=== PATIENT | female | born 1955 | race Caucasian/White ===

== ENCOUNTER → 2017-06-17 | Outpatient (CLI) | payer OTHER ==
[~2017-06-17] MED LIST: AMLO2.5T PO; ASCA500 PO; ASPCH81; ATOR-24 PO; BNC/20125 PO; CALCTAB5 PO; CHOL100010 PO; COQ10 PO; EZET10TA63 PO; GLC500 PO; GLCSUNK PO; IBUP600T44 PO; LSX20 PO; MULT-506 PO; NVLGI SQ; SERT25TA PO; TIZA4CAP PO
== END | disposition home or self-care (01) ==
LOC: C.LAB1850 09:52
PROVIDERS: ATTEND Internal Medicine Rheumatology
DX: M35.3 Polymyalgia rheumatica (principal); R70.0 Elevated erythrocyte sedimentation rate

== ENCOUNTER 2018-03-13 16:34 | Inpatient (IN) | payer OTHER ==
[~2018-03-13] VITALS: Ht 160 cm; Wt 117.1 kg
[~2018-03-13 16:34] MED LIST changes: -AMLO2.5T PO; -ASCA500 PO; -ASPCH81; +ASPI81TA28 PO; +BENICAR/HCTZ PO; -BNC/20125 PO; +CALC500C70 PO; -CALCTAB5 PO; -CHOL100010 PO; +CHOL2000 PO; +DULO60CA44 PO; +FERROUS SULFATE PO; -GLC500 PO; -GLCSUNK PO; -IBUP600T44 PO; +INSDGI SC; +LOVAZA PO; -LSX20 PO; +MAGN400T6 PO; +NVLG SC; -NVLGI SQ; +PRD/1 PO; +PRLSR20 PO; +RXC5 PO; -SERT25TA PO; +TOCI20IN INJ; +TRAM-10 PO; +TRIA1SPR4 INTNAS; +VERA240T20 PO
[2018-03-13 20:05] VITALS: BP 142/61; PULSE 80; TEMP 37.5; O2SAT 97
[2018-03-13] MEDS ORDERED: ACETAMINOPHEN 325 MG TAB PO PRN ×2 (20:45→22:00)
[2018-03-13] MEDS ORDERED: ONDANSETRON INJ 2 MG/ML 2 ML VIAL IV PRN ×2 (20:45→22:00)
[2018-03-13 21:41] VITALS: BP 142/61; PULSE 80; TEMP 37.5; O2SAT 97; BMI 43.5
[2018-03-13 21:56] VITALS: O2SAT 92
[2018-03-13 21:57] VITALS: O2SAT 97
[2018-03-13] MEDS ORDERED: POLYETHYLENE (MIRALAX) 17 GM PACK PO PRN (22:00)
[2018-03-13] MEDS ORDERED: ZOLPIDEM TARTRATE 5 MG TAB PO PRN (22:00)
[2018-03-13] MEDS ORDERED: TRAMADOL HCL 50 MG TAB PO PRN (22:00)
[2018-03-13] MEDS ORDERED: VANCOMYCIN CONSULT ACTIVE PRN (22:00)
[2018-03-13] MEDS ORDERED: MAGNESIUM HYDROXIDE SUSP 30 ML UDC PO PRN (22:00)
[2018-03-13] MEDS ORDERED: ALUMINUM/MAGNESIUM/SIMETH (MAALOX MAX) 30 ML UDC PO PRN (22:00)
--- NOTE | 2018-03-13 22:05 | History and Physical ---
History & Physical Date & Time of Service: Mar 13, 2018 at 22:02 Chief Complaint: Bacteremia Primary Care Physician: Kareen Harris D.O. History of Present Illness Source: patient, hospital records, other 62 y/o F Hx DM I, HTN, HPL, PMR, lumbar stenosis. The pt underwent L4-5 decompression and fusion on 03/07. She returned home 03/09. She states she was feeling very well a day after returning home. On day 2, however, she states she woke up with severe pain in her lower back radiating down to her R leg. She was having difficulty taking a deep breath. She presented to a local ER on 03/12 due to pain, and as she felt she was having difficulty taking a dep breath. It was noted that she had a low grade fever and blood cultures were obtained. She was sent home after being treated for pain and then called the next day to return to the ER due to positive blood cultures. She had a fever on arrival to the ER. She was transferred to [facility] for evaluation by her orthopedist. The pt denies SOB, N/V, diarrhea or dysuria at the time of admission. She does not have significant LE numbness and denies incontinence. I discussed her blood culture findings with the ER at [facility] and it appears that the initial culture returned (+) for G+ cocci. A second culture proved negative. Past Medical/Surgical History 1) DM I 2) PMR - long-term prednisone use - recently started Tocilizumab 3) Lumbar stenosis - L4-5 decompression and fusion 03/06/18 4) HTN 5) HPL Family History Hypertension FATHER MOTHER Social History Smoking Status: Never Smoker Immunizations History of Influenza Vaccine: N/A History of Tetanus Vaccine?: No History of Pneumococcal: Yes History of Hepatitis B Vaccine: Unknown Allergies Coded Allergies: Adhesives (Verified Allergy, Intermediate, RASH, 03/07/18) Irritates and tears skin. Cefaclor (Verified Allergy, Intermediate, HIVES, 03/07/18) Penicillins (Verified Allergy, Intermediate, HIVES, 03/07/18) Home Medications Scheduled Aspirin (Aspirin Ec), 81 MG PO QAM Atorvastatin (Lipitor), 40 MG PO HS Calcium/Vitamin D (Os-Adebayo 500 Plus D), 1 TAB PO QAM Cholecalciferol (Vitamin D3), 1 CAP PO QAM Duloxetine Hcl (Cymbalta), 60 MG PO QAM Ezetimibe (Zetia), 10 MG PO HS Insulin Aspart (Novolog), 15 UNITS SC TDM Insulin Glargine (Lantus), 40 UNITS SC AMPM Magnesium Oxide (Mag-Ox), 400 MG PO BID Multivitamin (Multivitamin), 1 TAB PO QAM Omeprazole (Prilosec), 20 MG PO QAM Prednisone (Prednisone), 11 MG PO QAM Tizanidine (Zanaflex), 4 MG PO HS Tocilizumab (Actemra), 1 DOSE INJ [id number] Triamcinolone Acetonide (Nasal (Nasacort Allergy 24Hr), 2 SPRAYS INTNAS HS Verapamil Sust Rel (Calan Sr Ext Rel), 240 MG PO QAM [Benicar/Hctz], 1 TAB PO QAM [Coq10], 100 MG PO QAM [Ferrous Sulfate], 1 TAB PO BID [Lovaza], 2 TAB PO BID Scheduled PRN Oxycodone HCl (Oxycodone HCl), 5-10 MG PO Q4H PRN for Moderate - severe pain Tramadol (Ultram), 100 MG PO Q4H PRN for Pain Review of Systems Constitutional: + fever, No chills, No sweats Eyes: No worsening of vision ENT: No hearing loss, No nasal symptoms Respiratory: No cough, No wheezing Cardiovascular: No chest pain, No orthopnea, No PND Abdomen: No pain, No nausea, No vomiting Musculoskeletal: + joint pain (BAck and R leg pain as above) Genitourinary - Female: No dysuria, No urinary frequency, No urinary urgency Neurologic: No memory loss, No paralysis Psychiatric: No depression symptoms Endocrine: No fatigue Hematologic / Lymphatic: No abnormal bleeding/bruising Integumentary: No rash Allergic / Immunologic: No environmental allergies Physical Exam Vital Signs Date Time Temp Pulse Resp B/P (MAP) Pulse Ox O2 Delivery O2 Flow Rate FiO2 03/13/18 20:05 37.5 80 18 142/61 (88) 97 Room Air General Appearance: WD/WN, no apparent distress, + obese (Cushingoid habitus) Head: normocephalic Eyes: normal inspection ENT: normal ENT inspection Neck: supple, no JVD Respiratory/Chest: chest non-tender, lungs clear, normal breath sounds Cardiovascular: regular rate, rhythm, no edema, no gallop Abdomen/GI: normal bowel sounds, non tender, soft Back: no CVA tenderness, + pertinent finding (Her wound appears to be healing well - no exudate or overlying inflammation is present - no tenderness to palpation) Extremities/Musculoskelatal: normal inspection, + pedal edema Neurologic/Psych: forms builder II-XII nml as tested, no motor/sensory deficits, alert, oriented x 3 Skin: + pertinent finding (Her wound appears to be healing well - no exudate or overlying inflammation is present - no tenderness to palpation) Diagnostics Laboratory Results Results Past 24 Hours Test 03/13/18 21:57 Range/Units Impression Assessment and Plan 62 y/o F Hx DM I, HTN, HPL, PMR, lumbar stenosis. The pt underwent L4-5 decompression and fusion on 03/07. She returned home 03/09. She states she was feeling very well a day after returning home. On day 2, however, she states she woke up with severe pain in her lower back radiating down to her R leg. She was having difficulty taking a deep breath. She presented to a local ER on 03/12 due to pain, and as she felt she was having difficulty taking a dep breath. It was noted that she had a low grade fever and blood cultures were obtained. She was sent home after being treated for pain and then called the next day to return to the ER due to positive blood cultures. She had a fever on arrival to the ER. She was transferred to [facility] for evaluation by her orthopedist. The pt denies SOB, N/V, diarrhea or dysuria at the time of admission. She does not have significant LE numbness and denies incontinence. I discussed her blood culture findings with the ER at [facility] and it appears that the initial culture returned (+) for G+ cocci. A second culture proved negative. 1) Fever and (+) blood cultures following lumbar fusion 7 days prior. The pt was started on Levaquin and Vanc pending sensitivity and specificity results, which is reasonable and will be continued. She does not have any exudate from her wound or tenderness directly over. She does not have any LE deficits. Therefore, additional imaging and decision on exploration will be left to the discretion of her orthopedist following evaluation. She is NPO after midnight by request of her surgeon. 2) PMR - the pt was recently placed on Tocilizumab, having received a dose 2 weeks prior. This seems ill-timed considering and additional dosing should likely be withheld pending full recovery. She has been taking daily prednisone long-term so we will need to continue this. Would consider stress dosing with evidence of sepsis or any episodes of hypotension. 3) DM - placed onj a SS with Lantus 4) HTN - Verapamil can be continued yane-op 5) HPL - cont Lipitor Full code - SCDs Total time for this admit including review of labs, meds, imaging, records - discussion with pt and review of outpt records - 41 min Resuscitation Status VTE Prophylaxis Will order VTE Prophylaxis: Yes
[2018-03-13 22:22] LABS: HEMATOCRIT 26.8 % (37-47); MEAN CELL VOLUME 86.5 fL (80-100); MEAN CORPUSCULAR HGB CONC 33.6 g/dl (32-36); MEAN PLATELET VOLUME 8.3 fL (7.4-10.4); PLATELET COUNT 184 K/uL (130-400); RED CELL DISTRIBUTION WIDTH CV 13.2 % (11.5-14.5); RED CELL DISTRIBUTION WIDTH SD 41.7 fL (36.4-46.3); WHITE BLOOD COUNT 12.48 K/uL (4.8-10.8)
[2018-03-13] MEDS ORDERED: VANCOMYCIN IV 2,500 MG in SODIUM CHLORIDE 0.9% 500ML 500 ML IV ONE (22:30)
[2018-03-13] MEDS: SODIUM CHLORIDE 0.9% 1000ML 1,000 ML IV SCH (22:32)
[2018-03-13] MEDS: INSULIN ASPART 100 UNITS/ML 3 ML PEN SC SCH (22:35)
[2018-03-13] MEDS: INSULIN GLARGINE SOLOSTAR 100 UNITS/ML 3 ML PEN SC SCH (22:36)
[2018-03-13 22:38] LABS: CALCIUM 7.7 mg/dl (8.5-10.1); CREATININE 1.33 mg/dl (0.60-1.20); POTASSIUM 4.7 mmol/L (3.5-5.1)
[2018-03-13] MEDS: OXYCODONE HCL IR 5 MG TAB (IMMEDIATE RELEASE) PO PRN (23:25)
[2018-03-13 23:26] VITALS: BP 136/55; PULSE 78; TEMP 37.7; O2SAT 98
[2018-03-14] VITALS (7 sets, daily range): BP systolic 102–142; BP diastolic 48–73; PULSE 69–80; TEMP 36.8–37.2; O2SAT 94–97
[2018-03-14] MEDS: INSULIN ASPART 100 UNITS/ML 3 ML PEN SC SCH ×4 (06:04→20:40)
[2018-03-14 07:17] LABS: CREATININE 1.19 mg/dl (0.60-1.20)
[2018-03-14 07:21] LABS: HEMATOCRIT 24.7 % (37-47); HEMOGLOBIN 8.4 g/dL (12.0-16.0); MEAN CELL VOLUME 85.2 fL (80-100); MEAN PLATELET VOLUME 9.1 fL (7.4-10.4); PLATELET COUNT 103 K/uL (130-400); RED CELL DISTRIBUTION WIDTH CV 13.2 % (11.5-14.5); RED CELL DISTRIBUTION WIDTH SD 41.2 fL (36.4-46.3); WHITE BLOOD COUNT 11.84 K/uL (4.8-10.8)
[2018-03-14] MEDS: PANTOprazole SOD 40 MG TAB PO SCH (07:31)
[2018-03-14] MEDS: VERAPAMIL HCL 240 MG TABCR PO SCH (07:31)
[2018-03-14] MEDS: OXYCODONE HCL IR 5 MG TAB (IMMEDIATE RELEASE) PO PRN ×2 (07:31→19:25)
[2018-03-14] MEDS: MAGNESIUM OXIDE 400 MG TAB PO SCH ×2 (07:32→20:38)
[2018-03-14] MEDS: FERROUS SULFATE 325 MG TAB PO SCH ×2 (07:32→17:28)
[2018-03-14] MEDS: ASPIRIN 81 MG ECTAB PO SCH (07:32)
[2018-03-14] MEDS: DULOXETINE HCL 60 MG CAP PO SCH (07:32)
[2018-03-14] MEDS: SODIUM CHLORIDE 0.9% 1000ML 1,000 ML IV SCH ×2 (07:35→17:29)
[2018-03-14 07:57] LABS: CALCIUM 7.4 mg/dl (8.5-10.1); POTASSIUM 4.3 mmol/L (3.5-5.1)
--- NOTE | 2018-03-14 08:34 | Pharmacy Progress Note ---
Pharmacy Abx Initial Consult Date of Service Mar 14, 2018. Pharmacy Dosing Scope Date of Consult: 03/13/18 Consultation requested by: Dr. Arita Pharmacy is consulted to initiate Vancomycin IV dosing therapy, order appropriate labs and adjust drug dose/frequency. Subjective The patient is a 62 year old female admitted on Mar 13, 2018 at 20:15. Objective Height (Feet): 5 Height (Inches): 3.00 Weight (Kilograms): 105.300 (BMI 41.1) Vital Signs (Past 12Hrs) Vital Signs Past 12 Hours Date Time Temp Pulse Resp B/P (MAP) Pulse Ox O2 Delivery O2 Flow Rate FiO2 03/14/18 08:01 37.1 74 19 142/58 (86) 94 03/14/18 08:00 Room Air 2.0 Nasal Cannula 03/14/18 04:31 36.8 76 19 102/68 (79) 94 Nasal Cannula 2.0 03/14/18 04:30 Nasal Cannula 2.0 03/14/18 00:30 Nasal Cannula 2.0 03/13/18 23:26 37.7 78 19 136/55 (82) 98 Nasal Cannula 2.0 03/13/18 21:57 97 Room Air 03/13/18 21:57 97 Room Air 03/13/18 21:57 Nasal Cannula 2.0 03/13/18 21:56 92 Room Air 03/13/18 21:56 92 Room Air 03/13/18 21:41 37.5 80 18 142/61 97 Room Air Lab Results (24Hrs) Laboratory Tests (24 Hours) Test 03/14/18 06:30 White Blood Count 11.84 K/uL (4.8-10.8) H Risk Factors for Resistance * Hospitalization for 48 hours or more within the past 90 days * Immunocompromised (chronic steroid therapy) Assessment & Plan Assessment 62 year old female presented to ER at [facility] with severe pain in lower back radiating to her right leg and difficulty taking a deep breath. Patient underwent L4-5 decompression and fusion on 03/07/18. There is no exudate from her wound or tenderness directly over. She was febrile and blood cultures from ER @ [facility] were positive for Gr + cocci. Was transferred to [facility] at request of her orthopedic physician. Plan Vancomcyin for treatment of bacteremia Vancomycin IV * Loading dose: 2250 mg (~24 mg/kg) * Maintenance dose: 1500 mg IV (~14.3 mg/kg) every 16 hours * Goal trough level for bacteremia : 15 to 20 mcg/mL * Trough level ordered for 03/15/18 @ 2130. Will check level prior to steady state due to patient BMI and increased potential for accumulation. Pharmacy will continue to follow and will adjust dose/frequency as necessary. Thank you.
[2018-03-14] MEDS ORDERED: LORAZEPAM 0.5 MG TAB PO STA (09:32)
[2018-03-14] MEDS ORDERED: LORAZEPAM 0.5 MG TAB ONE (09:36)
--- NOTE | 2018-03-14 11:30 | DIAGNOSTIC IMAGING REPORT ---
LUMBAR SPINE 2 OR 3 VIEWS CLINICAL HISTORY: back pain pain COMPARISON STUDY: None FINDINGS: Findings consistent with a L4-L5 laminectomy and fusion. Disc spacer is present at L4-L5. There is significant degenerative intervertebral disc change primarily at L2-L3 as well as the low thoracic region. There is no evidence for compression deformity or subluxation. IMPRESSION: Anatomic alignment post L4-L5 laminectomy and fusion. The above report was generated using voice recognition software. It may contain grammatical, syntax or spelling errors. Electronically signed by: Ricardo Herndon M.D. 03/14/2018 11:28 AM Dictated Date/Time: 03/14/2018 11:27 AM
--- NOTE | 2018-03-14 11:40 | Progress Note ---
Progress Note Date of Service Mar 14, 2018. Progress Note Code purple note Responded to a code purple that was called in ultrasound at 1115. Responded within two minutes. By report, the patient felt very anxious just prior to undergoing a scheduled bilateral lower extremity ultrasound. She also felt acute shortness of breath and feeling of stridor. Prior to my arrival, the patient was placed on about 4 L nasal cannula oxygen. Vitals: Pulse 73, respiratory rate 20, blood pressure 182/68, SpO2 100% on 4 L nasal cannula. Found patient sitting on the side of the bed, awake, alert, easily conversational, a bit anxious but not in any apparent distress. Mouth/neck: Patent posterior pharynx. No stridor. CV: +S1S2 RRR, no murmur. Pulm: Clear to auscultation throughout. Abdomen: +BS, soft, non-tender, non-distended. Extremities: Moving all extremities naturally and easily. Neuro: No gross neuro deficits. Accucheck was in 100's. Assessment and plan: 62-year-old female was noted to be very acutely short of breath with questionable stridor during her ultrasound procedure. By the time of my arrival , this had resolved. Patient states that she is quite anxious about undergoing this procedure, though she denies any previous history of panic attacks. No obvious evidence of respiratory or other physical distress. She denied any concurrent chest pain or other acute symptoms / concerns. - No acute change in orders made. Patient stated she felt well enough to continue with her planned ultrasound immediately after this event. - Notified the patient's primary team of the above. Oscar Franco PA-C (ICU) was present for entire code as well. Zach Choi, PGY2
[2018-03-14] MEDS ORDERED: LORAZEPAM 0.5 MG TAB PO PRN (12:00)
--- NOTE | 2018-03-14 12:10 | DIAGNOSTIC IMAGING REPORT ---
BILATERAL LOWER EXTREMITY VENOUS DOPPLER CLINICAL HISTORY: Leg pain. COMPARISON STUDY: No previous studies for comparison. TECHNIQUE: Sonography of the deep venous system of the bilateral lower extremities was performed. Compression and augmentation were evaluated. FINDINGS: Exam was technically difficult due to difficulty positioning. The common femoral, superficial femoral and popliteal veins were compressible. Augmentation was normal. Flow was shown within the deep calf vessels. IMPRESSION: Technically difficult exam but no evidence of deep venous thrombus within the bilateral lower extremities. Electronically signed by: Diogenes Gunter M.D. 03/14/2018 12:08 PM Dictated Date/Time: 03/14/2018 12:07 PM
[2018-03-14] MEDS: VANCOMYCIN IV 1,500 MG in SODIUM CHLORIDE 0.9% 500ML 500 ML IV SCH (14:44)
--- NOTE | 2018-03-14 15:22 | Orthopedic Consultation ---
Orthopedic Consultation Date of Consultation: Mar 14, 2018. Attending Physician: Madalyn Parker M.D. Reason for Consultation: Back and leg pain History of Present Illness This is a 62-year-old female well-known to me status post lumbar decompression fusion. Presents with shortness of breath and questionable bacteremia. States she has had some back pain and right leg pain is controlled with oral oxycodone. She describes significant shortness of breath. She does have a history of anxiety. During my discussion with her today she denies any leg pain. States her back pain is well controlled. She denies any fevers and chills. She denies any numbness and tingling to the lower extremities or in the perineal area. Family History Hypertension FATHER MOTHER Social History Smoking Status: Never Smoker Allergies Coded Allergies: Adhesives (Verified Allergy, Intermediate, RASH, 03/07/18) Irritates and tears skin. Cefaclor (Verified Allergy, Intermediate, HIVES, 03/07/18) Penicillins (Verified Allergy, Intermediate, HIVES, 03/07/18) Home Medications Scheduled Aspirin (Aspirin Ec), 81 MG PO QAM Atorvastatin (Lipitor), 40 MG PO HS Calcium/Vitamin D (Os-Adebayo 500 Plus D), 1 TAB PO QAM Cholecalciferol (Vitamin D3), 1 CAP PO QAM Duloxetine Hcl (Cymbalta), 60 MG PO QAM Ezetimibe (Zetia), 10 MG PO HS Insulin Aspart (Novolog), 15 UNITS SC TDM Insulin Glargine (Lantus), 40 UNITS SC AMPM Magnesium Oxide (Mag-Ox), 400 MG PO BID Multivitamin (Multivitamin), 1 TAB PO QAM Omeprazole (Prilosec), 20 MG PO QAM Prednisone (Prednisone), 11 MG PO QAM Tizanidine (Zanaflex), 4 MG PO HS Tocilizumab (Actemra), 1 DOSE INJ [id number] Triamcinolone Acetonide (Nasal (Nasacort Allergy 24Hr), 2 SPRAYS INTNAS HS Verapamil Sust Rel (Calan Sr Ext Rel), 240 MG PO QAM [Benicar/Hctz], 1 TAB PO QAM [Coq10], 100 MG PO QAM [Ferrous Sulfate], 1 TAB PO BID [Lovaza], 2 TAB PO BID Scheduled PRN Oxycodone HCl (Oxycodone HCl), 5-10 MG PO Q4H PRN for Moderate - severe pain Tramadol (Ultram), 100 MG PO Q4H PRN for Pain Current Inpatient Medications Current Inpatient Medications Medications (Trade) Dose Ordered Sig/Jovanni Route Start Time Stop Time Status Last Admin Dose Admin Ondansetron HCl (Zofran Inj) 4 mg Q6H PRN IV 03/13/18 20:45 04/12/18 20:44 Aspirin (Ecotrin Tab) 81 mg QAM PO 03/14/18 09:00 04/13/18 08:59 03/14/18 07:32 81 MG Atorvastatin Calcium (Lipitor Tab) 40 mg HS PO 03/14/18 21:00 04/13/18 20:59 Duloxetine HCl (Cymbalta Cap) 60 mg QAM PO 03/14/18 09:00 04/13/18 08:59 03/14/18 07:32 60 MG Insulin Glargine (Lantus Solostar Pen) 40 units HS SC 03/13/18 22:30 04/12/18 22:29 03/13/18 22:36 40 UNITS Magnesium Oxide (Mag-Ox Tab) 400 mg BID PO 03/14/18 09:00 04/13/18 08:59 03/14/18 07:32 400 MG Oxycodone HCl (Roxicodone Immediate Rel Tab) 10 mg Q4H PRN PO 03/13/18 22:00 03/27/18 21:59 03/14/18 07:31 10 MG Prednisone (PredniSONE TAB) 11 mg QAM PO 03/14/18 09:00 04/13/18 08:59 03/14/18 07:32 11 MG Tramadol HCl (Ultram Tab) 100 mg Q4H PRN PO 03/13/18 22:00 04/12/18 21:59 Verapamil HCl (Calan-Sr Tab) 240 mg QAM PO 03/14/18 09:00 04/13/18 08:59 03/14/18 07:31 240 MG Pantoprazole Sodium (Protonix Tab) 40 mg QAM PO 03/14/18 09:00 04/13/18 08:59 03/14/18 07:31 40 MG Tizanidine HCl (Zanaflex Tab) 4 mg HS PO 03/13/18 22:30 04/12/18 22:29 03/13/18 22:33 4 MG Ferrous Sulfate (Feosol Tab) 325 mg BIDM PO 03/14/18 07:30 04/13/18 07:29 03/14/18 07:32 325 MG Insulin Aspart (novoLOG ASPART) SLIDING SCALE G... Q6 SC 03/13/18 22:30 04/12/18 22:29 03/14/18 14:46 1 UNITS Hydromorphone HCl (Dilaudid Inj) 0.5 mg Q3H PRN IV 03/13/18 22:00 03/27/18 21:59 Vancomycin HCl (Consult) 1 ea UD PRN N/A 03/13/18 22:00 04/12/18 21:59 Sodium Chloride 1,000 ml @ 100 mls/hr Q10H IV 03/13/18 22:00 04/12/18 21:59 03/14/18 07:35 100 MLS/HR Acetaminophen (Tylenol Tab) 650 mg Q4H PRN PO 03/13/18 22:00 04/12/18 21:59 Al Hydrox/Mg Hydrox/Simethicone (Maalox Max Susp) 15 ml Q4H PRN PO 03/13/18 22:00 04/12/18 21:59 Magnesium Hydroxide (Milk Of Magnesia Susp) 30 ml Q12H PRN PO 03/13/18 22:00 04/12/18 21:59 Zolpidem Tartrate (Ambien Tab) 5 mg HSZ PRN PO 03/13/18 22:00 04/12/18 21:59 Ondansetron HCl (Zofran Inj) 4 mg Q6H PRN IV 03/13/18 22:00 04/12/18 21:59 Polyethylene (Miralax Powder Packet) 17 gm DAILY PRN PO 03/13/18 22:00 04/12/18 21:59 Vancomycin HCl 1500 mg/Sodium Chloride 530 ml @ 200 mls/hr Q16H IV 03/14/18 14:00 03/28/18 13:59 03/14/18 14:44 200 MLS/HR Lorazepam (Ativan Tab) 0.5 mg Q6 PRN PO 03/14/18 12:00 04/13/18 11:59 Physical Exam Date Time Temp Pulse Resp B/P (MAP) Pulse Ox O2 Delivery O2 Flow Rate FiO2 03/14/18 12:12 37.1 71 18 132/48 (76) 97 Nasal Cannula 2.0 03/14/18 08:01 37.1 74 19 142/58 (86) 94 03/14/18 08:00 Room Air 2.0 Nasal Cannula 03/14/18 04:31 36.8 76 19 102/68 (79) 94 Nasal Cannula 2.0 03/14/18 04:30 Nasal Cannula 2.0 03/14/18 00:30 Nasal Cannula 2.0 03/13/18 23:26 37.7 78 19 136/55 (82) 98 Nasal Cannula 2.0 03/13/18 21:57 97 Room Air 03/13/18 21:57 97 Room Air 03/13/18 21:57 Nasal Cannula 2.0 03/13/18 21:56 92 Room Air 03/13/18 21:56 92 Room Air 03/13/18 21:41 37.5 80 18 142/61 97 Room Air 03/13/18 20:05 37.5 80 18 142/61 (88) 97 Room Air On physical exam the incision is healing well. There is no erythema. There is no drainage. She has modest tenderness to palpation. No evidence of fluctuance. On motor exam she has plus 5 out of 5 plantar flexion dorsiflexion quadriceps. She is she exhibits no tension signs. I did have her stand and ambulate about the room. She is steady with a shortened gait. She was more concerned regarding her shortness of breath. Laboratory Results Last 24 Hours Test 03/13/18 20:52 03/13/18 22:07 03/14/18 05:44 03/14/18 06:30 Bedside Glucose 293 mg/dl 251 mg/dl White Blood Count 12.48 K/uL 11.84 K/uL Red Blood Count 3.10 M/uL 2.90 M/uL Hemoglobin 9.0 g/dL 8.4 g/dL Hematocrit 26.8 % 24.7 % Mean Corpuscular Volume 86.5 fL 85.2 fL Mean Corpuscular Hemoglobin 29.0 pg 29.0 pg Mean Corpuscular Hemoglobin Concent 33.6 g/dl 34.0 g/dl RDW Standard Deviation 41.7 fL 41.2 fL RDW Coefficient of Variation 13.2 % 13.2 % Platelet Count 184 K/uL 103 K/uL Mean Platelet Volume 8.3 fL 9.1 fL Sodium Level 124 mmol/L 130 mmol/L Potassium Level 4.7 mmol/L 4.3 mmol/L Chloride Level 89 mmol/L 96 mmol/L Carbon Dioxide Level 29 mmol/L 24 mmol/L Anion Gap 6.0 mmol/L 10.0 mmol/L Blood Urea Nitrogen 21 mg/dl 19 mg/dl Creatinine 1.33 mg/dl 1.19 mg/dl Est Creatinine Clear Calc Drug Dose 51.6 ml/min 57.7 ml/min Estimated GFR () 49.9 57.1 Estimated GFR (Non- 43.0 49.2 BUN/Creatinine Ratio 15.6 16.3 Random Glucose 324 mg/dl 239 mg/dl Calcium Level 7.7 mg/dl 7.4 mg/dl Magnesium Level 2.1 mg/dl Beta-Hydroxybutyric Acid 1.19 mg/dL Test 03/14/18 11:18 03/14/18 12:16 Bedside Glucose 179 mg/dl 187 mg/dl Assessment & Plan Assessment status post lumbar decompression fusion. Plan at this time x-rays demonstrate instrumentation been placed in appropriate alignment. Dopplers are negative for DVT. Her exam is underwhelming regarding a possible lumbar infection. She had significant resolution of leg pain with oxycodone. This is not consistent with severe neural irritation. We will continue to watch her closely.
--- NOTE | 2018-03-14 15:37 | Progress Note ---
Progress Note Date of Service Mar 14, 2018. Progress Note ID Consult Dictated #[id number] A/P: 1. + blood culture - outside facility -Repeat cultures pending, follow final -Continue pb for now -thank you
--- NOTE | 2018-03-14 16:45 | INFECT. DISEASE CONSULTATION ---
DATE OF CONSULTATION: 03/14/2018 HISTORY OF PRESENT ILLNESS: This is a 62-year-old female who was admitted after she was called by [facility] Emergency Room and notified to have a positive blood culture. She initially was admitted here and had a decompression surgery of L4-L5 on 03/07. She was discharged to home in stable condition on the . She did have some pain radiating into her right lower extremity and presented to the [facility] Emergency Room on the . At that time, she was found to have a low-grade fever and blood cultures were obtained. She was discharged home from the ER on no antibiotics, though called yesterday and notified that her blood cultures were positive and that 1/2 cultures had gram-positive cocci. To my knowledge, this has not yet been identified. She was called by the Emergency Room and it was suggested that she present to [facility] and be admitted as she underwent surgery here. She did have x-rays of her lumbar spine this admission and they are negative. She is also being followed by orthopedic surgery. She has no pain on my exam. She has no fevers or chills. She has been on no antibiotics; however, she was started empirically on vancomycin. Her T-max overnight was 37.7. She did have a leukocytosis of 12.4 yesterday which was improved to 11.8. REVIEW OF SYSTEMS: Her remaining review of systems is reviewed and unremarkable. PAST MEDICAL HISTORY: Significant for diabetes, polymyalgia rheumatica on prednisone, lumbar stenosis with decompression and fusion on 03/07, hypertension and hyperlipidemia. FAMILY HISTORY: Noncontributory. SOCIAL HISTORY: Noncontributory. ALLERGIES: INCLUDE ADHESIVE TAPE, CEFACLOR AND PENICILLIN. MEDICATIONS: Lipitor, vancomycin, Ativan, aspirin, Cymbalta, magnesium, prednisone, verapamil, Protonix, iron, Lantus, Zanaflex, NovoLog, Roxicodone, Ultram, Dilaudid, Tylenol, Maalox, milk of magnesia, Ambien. PHYSICAL EXAMINATION: VITAL SIGNS: She is currently afebrile, T-max is 37.7 on admission. Pulse 71, respiratory rate 18, blood pressure 132/48, oxygen saturation is 97% on 2 liters nasal cannula. GENERAL: She is awake, alert and oriented x3. She is in no acute distress. HEENT: Mucous membranes are moist. Extraocular muscles are intact. HEART: Regular. LUNGS: Clear bilaterally. ABDOMEN: Soft. EXTREMITIES: There is no lower extremity edema. SKIN: Without rash. Back incision is well healed. There are minimal Steri-Strips on the inferior portion of the incision. The incision is closed. There is no surrounding warmth, induration, tenderness, or erythema. There is no wound dehiscence, bleeding or drainage. LABORATORY STUDIES: CBC today, white blood cell count 11.4, hemoglobin 8.4, platelets 103. Chemistry panel: Sodium 130, potassium 4.3, chloride 96, bicarbonate 24, BUN 19, creatinine 1.1, glucose 187. Blood cultures are pending. IMAGING DATA: As above. ASSESSMENT AND PLAN: Positive blood culture, unclear if this is true pathogen or skin contamination. She will remain on vancomycin. Repeat blood cultures are pending. Thank you for this consultation.
[2018-03-14] MEDS ORDERED: NURSING VERBAL MED ORDER ONE (17:00)
--- NOTE | 2018-03-14 19:39 | Family Medicine Progress Note ---
Progress Note Date of Service Mar 14, 2018. Subjective Pt evaluation today including: conversation w/ patient, physical exam, chart review, lab review Pain: reported 7/10 back pain radiating to R buttocks this AM PO Intake: tolerating Voiding: no voiding problems This AM pt reported 7/10 low back pain radiating to R buttocks region. Also reported some nausea attributed to being npo. Last BM was on Saturday 5 days ago. Also reports hyperventilating with pain and getting anxious. Constitutional: No fever, No chills Respiratory: No shortness of breath Cardiovascular: No chest pain Abdomen: + nausea, + constipation, No pain, No vomiting Musculoskeletal: + problem reported (back pain radiating to R buttocks s/p recent surgery) Female : No dysuria Medications Current Inpatient Medications Medications (Trade) Dose Ordered Sig/Jovanni Route Start Time Stop Time Status Last Admin Dose Admin Ondansetron HCl (Zofran Inj) 4 mg Q6H PRN IV 03/13/18 20:45 04/12/18 20:44 Aspirin (Ecotrin Tab) 81 mg QAM PO 03/14/18 09:00 04/13/18 08:59 03/14/18 07:32 81 MG Atorvastatin Calcium (Lipitor Tab) 40 mg HS PO 03/14/18 21:00 04/13/18 20:59 Duloxetine HCl (Cymbalta Cap) 60 mg QAM PO 03/14/18 09:00 04/13/18 08:59 03/14/18 07:32 60 MG Insulin Glargine (Lantus Solostar Pen) 40 units HS SC 03/13/18 22:30 04/12/18 22:29 03/13/18 22:36 40 UNITS Magnesium Oxide (Mag-Ox Tab) 400 mg BID PO 03/14/18 09:00 04/13/18 08:59 03/14/18 07:32 400 MG Oxycodone HCl (Roxicodone Immediate Rel Tab) 10 mg Q4H PRN PO 03/13/18 22:00 03/27/18 21:59 03/14/18 19:25 10 MG Prednisone (PredniSONE TAB) 11 mg QAM PO 03/14/18 09:00 04/13/18 08:59 03/14/18 07:32 11 MG Tramadol HCl (Ultram Tab) 100 mg Q4H PRN PO 03/13/18 22:00 04/12/18 21:59 Verapamil HCl (Calan-Sr Tab) 240 mg QAM PO 03/14/18 09:00 04/13/18 08:59 03/14/18 07:31 240 MG Pantoprazole Sodium (Protonix Tab) 40 mg QAM PO 03/14/18 09:00 04/13/18 08:59 03/14/18 07:31 40 MG Tizanidine HCl (Zanaflex Tab) 4 mg HS PO 03/13/18 22:30 04/12/18 22:29 03/13/18 22:33 4 MG Ferrous Sulfate (Feosol Tab) 325 mg BIDM PO 03/14/18 07:30 04/13/18 07:29 03/14/18 17:28 325 MG Hydromorphone HCl (Dilaudid Inj) 0.5 mg Q3H PRN IV 03/13/18 22:00 03/27/18 21:59 Vancomycin HCl (Consult) 1 ea UD PRN N/A 03/13/18 22:00 04/12/18 21:59 Sodium Chloride 1,000 ml @ 100 mls/hr Q10H IV 03/13/18 22:00 04/12/18 21:59 03/14/18 17:29 100 MLS/HR Acetaminophen (Tylenol Tab) 650 mg Q4H PRN PO 03/13/18 22:00 04/12/18 21:59 Al Hydrox/Mg Hydrox/Simethicone (Maalox Max Susp) 15 ml Q4H PRN PO 03/13/18 22:00 04/12/18 21:59 Magnesium Hydroxide (Milk Of Magnesia Susp) 30 ml Q12H PRN PO 03/13/18 22:00 04/12/18 21:59 Zolpidem Tartrate (Ambien Tab) 5 mg HSZ PRN PO 03/13/18 22:00 04/12/18 21:59 Ondansetron HCl (Zofran Inj) 4 mg Q6H PRN IV 03/13/18 22:00 04/12/18 21:59 Polyethylene (Miralax Powder Packet) 17 gm DAILY PRN PO 03/13/18 22:00 04/12/18 21:59 Vancomycin HCl 1500 mg/Sodium Chloride 530 ml @ 200 mls/hr Q16H IV 03/14/18 14:00 03/28/18 13:59 03/14/18 14:44 200 MLS/HR Lorazepam (Ativan Tab) 0.5 mg Q6 PRN PO 03/14/18 12:00 04/13/18 11:59 Insulin Aspart (novoLOG ASPART) SLIDING SCALE G... ACHS SC 03/14/18 17:00 04/13/18 16:59 03/14/18 17:29 2 UNITS Objective Vital Signs Date Time Temp Pulse Resp B/P (MAP) Pulse Ox O2 Delivery O2 Flow Rate FiO2 03/14/18 19:20 37.2 71 18 124/73 (90) 95 Room Air 03/14/18 15:37 37.1 69 20 119/49 (72) 97 Nasal Cannula 2.0 03/14/18 12:12 37.1 71 18 132/48 (76) 97 Nasal Cannula 2.0 03/14/18 08:01 37.1 74 19 142/58 (86) 94 03/14/18 08:00 Room Air 2.0 Nasal Cannula 03/14/18 04:31 36.8 76 19 102/68 (79) 94 Nasal Cannula 2.0 03/14/18 04:30 Nasal Cannula 2.0 03/14/18 00:30 Nasal Cannula 2.0 03/13/18 23:26 37.7 78 19 136/55 (82) 98 Nasal Cannula 2.0 03/13/18 21:57 97 Room Air 03/13/18 21:57 97 Room Air 03/13/18 21:57 Nasal Cannula 2.0 03/13/18 21:56 92 Room Air 03/13/18 21:56 92 Room Air 03/13/18 21:41 37.5 80 18 142/61 97 Room Air 03/13/18 20:05 37.5 80 18 142/61 (88) 97 Room Air Physical Exam General Appearance: + mild distress Eyes: normal inspection Respiratory/Chest: lungs clear, normal breath sounds Cardiovascular: regular rate, rhythm, no murmur Abdomen: normal bowel sounds, non tender, soft Extremities: non-tender, no pedal edema Neurologic/Psychiatric: stock wetter II-XII nml as tested, no motor/sensory deficits, alert, oriented x 3 Skin: + pertinent finding (vertical about 10cm surgical scar on lumbar spine with steri-strips - healing well without any drainage; no TTP) Laboratory Results 03/14/18 06:30 03/14/18 06:30 Test 03/13/18 22:07 03/14/18 06:30 03/14/18 17:18 Magnesium Level 2.1 mg/dl (1.8-2.4) Beta-Hydroxybutyric Acid 1.19 mg/dL (0.2-2.81) Red Blood Count 2.90 M/uL (4.2-5.4) Mean Corpuscular Volume 85.2 fL (80-100) Mean Corpuscular Hemoglobin 29.0 pg (25-34) Mean Corpuscular Hemoglobin Concent 34.0 g/dl (32-36) RDW Standard Deviation 41.2 fL (36.4-46.3) RDW Coefficient of Variation 13.2 % (11.5-14.5) Mean Platelet Volume 9.1 fL (7.4-10.4) Anion Gap 10.0 mmol/L (3-11) Est Creatinine Clear Calc Drug Dose 57.7 ml/min Estimated GFR () 57.1 Estimated GFR (Non- 49.2 BUN/Creatinine Ratio 16.3 (10-20) Calcium Level 7.4 mg/dl (8.5-10.1) Bedside Glucose 201 mg/dl (70-90) Assessment and Plan 62 y/oF with hx of DM I, HTN, HLD, PMR, and lumbar stenosis. S/p surgery for L4- 5 decompression and fusion on 03/07 and dc on 03/09. Admitted for severe lower back pain radiating to R buttocks region (similar to pain prior to surgery) and sob in the setting of a positive blood culture (Gram+ cocci) and fever at outside ED on 03/12 concerning for bacteremia. No neurologic deficits noted. ID and ortho on board. Fever and (+) blood cultures following recent lumbar fusion - No active drainage, erythema or fluctuance at surgical wound site - Outside ED BCx - one grew Gram + cocci other negative - BCx x2 pending - WBC downtrended from 12.5 to 11.8 this AM and remains afebrile here - ID consulted - Continue vancomycin pending repeat culture results - Ortho consulted - surgeon dr. Lubin - no severe neural irritation or significant concern for lumbar infection - will follow - lumbar xray - reassuring - Continue vancomycin IV - Continue IVF NS 100mls/hr Sob a/w anxiety - hx of anxiety - On lorazepam 0.5mg Q6H PRN - continue cymbalta home dose PMR - Recently placed on Tocilizumab - received a dose 2 weeks prior (likely ill- timed and additional dosing should be withheld pending full recovery) - Continue chronic prednisone 11mg QAM DM - Continue SS with Lantus 40u HS HTN/CAD - Continue Verapamil 240mg - Continue Aspirin 81mg QAM HLD - continue Lipitor 40mg HS Constipation - Colace 100mg BID - Miralax 17g daily Full code - SCDs - Venous doppler b/l LEs - no DVT Resident Involvement: Resident Care Provided Care Provided: Adult [facility] Medicine Reviewed: Pt Seen/Exam by Me History kept getting anxious off and on since this am. has had problem with anxiety for sometime now. Constitutional: denies: fever Respiratory: negative: short of breath Cardiovascular: denies chest pain General Appearance: no apparent distress Respiratory: lungs clear, no respiratory distress Cardiovascular: regular rate, rhythm Gastrointestinal: soft Neurologic/Psychiatric: alert, oriented x 3 Skin Characteristics: warm/dry Assessment/Plan Resident Physician Supervision Note: I independently interviewed and examined the patient and verified the stanley history and physical, reviewed labs and image studies, discussed the case with the resident Dr. Snell and agree with the findings and care plan.
[2018-03-14] MEDS ORDERED: POLYETHYLENE (MIRALAX) 17 GM PACK PO ONE (20:14)
[2018-03-14] MEDS: ATORVASTATIN 40 MG TAB PO SCH (20:39)
[2018-03-14] MEDS: INSULIN GLARGINE SOLOSTAR 100 UNITS/ML 3 ML PEN SC SCH (20:41)
[2018-03-14] MEDS: DOCUSATE SODIUM 100 MG CAP PO SCH (20:57)
[2018-03-15] MEDS: OXYCODONE HCL IR 5 MG TAB (IMMEDIATE RELEASE) PO PRN (03:56)
[2018-03-15 04:36] VITALS: BP 121/53; PULSE 70; TEMP 37.6; O2SAT 96
[2018-03-15] MEDS ORDERED: NURSING VERBAL MED ORDER ONE (04:45)
[2018-03-15 07:17] VITALS: BP 151/52; PULSE 72; TEMP 36.4; O2SAT 92
[2018-03-15 07:27] LABS: BASO % 0.1 %; BASO ABS # 0.01 K/uL (0-0.2); EOS % 1.1 %; EOS ABS # 0.11 K/uL (0-0.5); HEMATOCRIT 24.5 % (37-47); HEMOGLOBIN 8.1 g/dL (12.0-16.0); IG# 0.04 K/uL (0.00-0.02); LYMPH % 17.3 %; LYMPH ABS # 1.75 K/uL (1.2-3.4); MEAN CELL VOLUME 86.6 fL (80-100); MEAN CORPUSCULAR HEMOGLOBIN 28.6 pg (25-34); MEAN CORPUSCULAR HGB CONC 33.1 g/dl (32-36); MEAN PLATELET VOLUME 8.5 fL (7.4-10.4); MONO % 12.4 %; MONO ABS # 1.25 K/uL (0.11-0.59); NEUT % 68.7 %; NEUT ABS # 6.93 K/uL (1.4-6.5); PLATELET COUNT 246 K/uL (130-400); RED CELL DISTRIBUTION WIDTH CV 13.2 % (11.5-14.5); RED CELL DISTRIBUTION WIDTH SD 41.9 fL (36.4-46.3); WHITE BLOOD COUNT 10.09 K/uL (4.8-10.8)
[2018-03-15 07:42] LABS: CREATININE 0.97 mg/dl (0.60-1.20); POTASSIUM 3.6 mmol/L (3.5-5.1)
[2018-03-15] MEDS: POLYETHYLENE (MIRALAX) 17 GM PACK PO SCH (07:47)
[2018-03-15] MEDS: ASPIRIN 81 MG ECTAB PO SCH (07:47)
[2018-03-15] MEDS: PANTOprazole SOD 40 MG TAB PO SCH (07:47)
[2018-03-15] MEDS: DOCUSATE SODIUM 100 MG CAP PO SCH ×2 (07:47→20:46)
[2018-03-15] MEDS: MAGNESIUM OXIDE 400 MG TAB PO SCH ×2 (07:47→20:47)
[2018-03-15] MEDS: FERROUS SULFATE 325 MG TAB PO SCH ×2 (07:48→17:04)
[2018-03-15] MEDS: VANCOMYCIN IV 1,500 MG in SODIUM CHLORIDE 0.9% 500ML 500 ML IV SCH ×2 (07:48→22:05)
[2018-03-15] MEDS: VERAPAMIL HCL 240 MG TABCR PO SCH (07:48)
[2018-03-15] MEDS: DULOXETINE HCL 60 MG CAP PO SCH (07:48)
[2018-03-15] MEDS: INSULIN ASPART 100 UNITS/ML 3 ML PEN SC SCH ×4 (07:49→20:39)
--- NOTE | 2018-03-15 07:56 | Family Medicine Progress Note ---
Progress Note Date of Service Mar 15, 2018. Subjective Pt evaluation today including: conversation w/ patient, physical exam, chart review, lab review, review of studies, review of inpatient medication list Patient well this morning, sitting out of bed. Her main complaint is ongoing sciatic pain in her right lower extremity, mildly alleviated with oxycodone. She denies fevers or chills, and has not had any recent episodes of hyperventilation in the last 24 hours. She is unsure of the cause of her hyperventilating but is willing to try an anxiolytic. She is also using the incentive spirometry correctly in terms of technique and will try to use it more frequently. Her nausea is improved this morning, although she still states decreased appetite. She was previously feeling constipated but had a BM this AM. She denies issues with voiding. She otherwise denies headaches, CP, palpitations, dyspnea, abdominal pain. ROS is unremarkable except as noted above. Objective Vital Signs Date Time Temp Pulse Resp B/P (MAP) Pulse Ox O2 Delivery O2 Flow Rate FiO2 03/15/18 07:17 36.4 72 18 151/52 (85) 92 Room Air 03/15/18 04:36 37.6 70 18 121/53 (75) 96 Room Air 03/14/18 23:33 37.0 80 16 123/59 (80) 96 Room Air 03/14/18 20:00 95 Room Air 03/14/18 19:20 37.2 71 18 124/73 (90) 95 Room Air 03/14/18 15:37 37.1 69 20 119/49 (72) 97 Nasal Cannula 2.0 03/14/18 12:12 37.1 71 18 132/48 (76) 97 Nasal Cannula 2.0 03/14/18 08:01 37.1 74 19 142/58 (86) 94 03/14/18 08:00 Room Air 2.0 Nasal Cannula Physical Exam General Appearance: WD/WN, no apparent distress Eyes: normal inspection ENT: hearing grossly normal Neck: supple Respiratory/Chest: normal breath sounds, no respiratory distress, no accessory muscle use Cardiovascular: regular rate, rhythm, no murmur Abdomen: normal bowel sounds, non tender, soft Extremities: no calf tenderness, + pedal edema (+1 to mid zheng) Neurologic/Psychiatric: alert, normal mood/affect, oriented x 3 Skin: normal color, warm/dry, no rash, + pertinent finding (vertical about 10cm surgical scar on lumbar spine with steri-strips - healing well without any drainage; no TTP) Laboratory Results Results Past 24 Hours Test 03/14/18 17:18 03/14/18 20:31 03/15/18 06:36 03/15/18 07:15 Range/Units Bedside Glucose 201 289 82 70-90 mg/dl White Blood Count 10.09 4.8-10.8 K/uL Red Blood Count 2.83 4.2-5.4 M/uL Hemoglobin 8.1 12.0-16.0 g/dL Hematocrit 24.5 37-47 % Mean Corpuscular Volume 86.6 80-100 fL Mean Corpuscular Hemoglobin 28.6 25-34 pg Mean Corpuscular Hemoglobin Concent 33.1 32-36 g/dl Platelet Count 246 130-400 K/uL Mean Platelet Volume 8.5 7.4-10.4 fL Neutrophils (%) (Auto) 68.7 % Lymphocytes (%) (Auto) 17.3 % Monocytes (%) (Auto) 12.4 % Eosinophils (%) (Auto) 1.1 % Basophils (%) (Auto) 0.1 % Neutrophils # (Auto) 6.93 1.4-6.5 K/uL Lymphocytes # (Auto) 1.75 1.2-3.4 K/uL Monocytes # (Auto) 1.25 0.11-0.59 K/uL Eosinophils # (Auto) 0.11 0-0.5 K/uL Basophils # (Auto) 0.01 0-0.2 K/uL RDW Standard Deviation 41.9 36.4-46.3 fL RDW Coefficient of Variation 13.2 11.5-14.5 % Immature Granulocyte % (Auto) 0.4 % Immature Granulocyte # (Auto) 0.04 0.00-0.02 K/uL Red Blood Cell Morphology Unremarkable Sodium Level 132 136-145 mmol/L Potassium Level 3.6 3.5-5.1 mmol/L Chloride Level 99 98-107 mmol/L Carbon Dioxide Level 27 21-32 mmol/L Anion Gap 6.0 3-11 mmol/L Blood Urea Nitrogen 17 7-18 mg/dl Creatinine 0.97 0.60-1.20 mg/dl Est Creatinine Clear Calc Drug Dose 73.6 ml/min Estimated GFR () 73.1 Estimated GFR (Non- 63.0 BUN/Creatinine Ratio 17.3 10-20 Random Glucose 67 70-99 mg/dl Calcium Level 8.0 8.5-10.1 mg/dl Test 03/15/18 11:33 Range/Units Bedside Glucose 221 70-90 mg/dl Assessment and Plan 62 y/oF with hx of DM I, HTN, HLD, PMR, and lumbar stenosis s/p surgery for L4- 5 decompression and fusion on 03/07 and discharged on 03/09. Admitted for severe lower back pain radiating to R buttocks region (similar to pain prior to surgery) and SOB in the setting of a positive blood culture (gram+ cocci) and fever at outside ED on 03/12 concerning for bacteremia. No neurologic deficits noted. ID and ortho on board. Fever and (+) blood cultures in view of recent lumbar fusion on 03/07 - No active signs of infection - vitals stable, leukocytosis resolved, no active drainage, erythema or fluctuance at surgical wound site. Outside ED BCx - one grew G+ cocci, other neg. Ortho (Dr. Lubin) and ID consulted, recs appreciated - Trace results of repeat BCx from 02/15 - Continue empiric antibiotic coverage with vancomycin, per ID - Trend CBC Back pain + sciatic symptoms - persistent post surgery. Ortho (Dr. Lubin) consulted, recs appreciated - Continue pain management regimen - oxycodone, Toradol, duloxetine and tizanidine. Patient has tramadol and Dilaudid ordered as well, but has not been taking these. Ice pack ordered, per patient's request. - Per ortho, if patient's leg symptoms continue, will consider exploration of the wound and culture - patient would like to try to avoid this if at all possible - PT/OT ordered Hyperventilation 2/2 anxiety (has history of this) vs. pain - Trial of hydroxyzine - dose this morning + scheduled HS - PO lorazepam 0.5mg Q6H PRN - if hydroxyzine helpful, aim to discontinue this tomorrow - Continue home dose duloxetine - If ongoing dyspnea/SOB, will consider CT to r/o PE in view of recent surgery and decreased mobilization - although recent venous Doppler of bilateral LEs negative Constipation - attributable to opiod use, patient had BM this AM - Continue scheduled bowel regimen with docusate and MiraLax. Poor sleep possibly 2/2 sleep apnea - patient states she has had sleep study performed recently, but is unsure of results yet - Nocturnal pulse ox study ordered and may potentially be able to set up CPAP/ BiPap for hospital duration if warranted DM - some hypoglycemia this AM, patient attributes to poor appetite 2/2 nausea from pain. Will monitor and advised re: PRN anti-emetics on order for her - Continue Lantus 40 units HS + ISS with BSG ac/hs ADDENDUM: Patient has improved appetite today, and blood sugars have escalated through the day. Called by nurse with glucose reading of 434. At this time, will give a stat one time dose of 10units Novolog with repeat BSG in 2 hours Adjustments to meds include increasing Lantus from 40units HS to home dose 40units BID. Also tightening ISS to range 120-160 with CF tightened from 40 to 20, and addition of carb coverage of 1:10. Will continue to monitor sugars. PMR - Recently placed on Tocilizumab - received a dose 2 weeks prior (likely ill- timed and additional dosing should be withheld pending full recovery) - Continue chronic prednisone 11mg QAM + pantoprazole GI ppx CAD/ HTN/ HLD - Continue aspirin 81mg QAM, verapamil 240mg, atorvastatin 40mg HS VTE ppx - SCDs FULL CODE Continued [facility] stay due to: multiple IV medications needed Discharge planning: uncertain Resident Tracking Resident Involvement: Resident Care Provided Care Provided: Adult Hospital Medicine Reviewed: Pt Seen/Exam by Me History anxiety better controlled back pain + Constitutional: denies: fever Respiratory: negative: short of breath Cardiovascular: denies chest pain General Appearance: no apparent distress Respiratory: lungs clear, no respiratory distress Cardiovascular: regular rate, rhythm Neurologic/Psychiatric: alert, oriented x 3 Skin Characteristics: warm/dry Assessment/Plan Resident Physician Supervision Note: I independently interviewed and examined the patient and verified the stanley history and physical, reviewed labs and image studies, discussed the case with the resident Dr. West and agree with the findings and care plan.
[2018-03-15 08:00] VITALS: O2SAT 92
--- NOTE | 2018-03-15 11:06 | Orthopedic Progress Note ---
Orthopedic Progress Note Date of Service Mar 15, 2018. Subjective Additional Notes: Patient continues to have complaints of pain in the lower portion of the back on the right buttock going down the right leg. It seems to be somewhat worse today than it was yesterday. She has been ambulating in a limited fashion secondary to her pain and perceived shortness of breath. She has had no fevers or chills at this point. She has had no nausea or other complaints at this time. She is not having increasing back pain. Objective On exam she is afebrile vital signs are stable. Incisions without any erythema or drainage. She is nontender about the back itself. She is nontender with range of motion of the legs. Her strength and sensation are both intact. Her calves are supple and nontender abdomen soft and nontender. Date Time Temp Pulse Resp B/P (MAP) Pulse Ox O2 Delivery O2 Flow Rate FiO2 03/15/18 08:00 92 Room Air 03/15/18 07:17 36.4 72 18 151/52 (85) 92 Room Air 03/15/18 04:36 37.6 70 18 121/53 (75) 96 Room Air 03/14/18 23:33 37.0 80 16 123/59 (80) 96 Room Air 03/14/18 20:00 95 Room Air 03/14/18 19:20 37.2 71 18 124/73 (90) 95 Room Air 03/14/18 15:37 37.1 69 20 119/49 (72) 97 Nasal Cannula 2.0 03/14/18 12:12 37.1 71 18 132/48 (76) 97 Nasal Cannula 2.0 Laboratory Results 24 Hours: Test 03/15/18 06:36 White Blood Count 10.09 K/uL Red Blood Count 2.83 M/uL Hemoglobin 8.1 g/dL Hematocrit 24.5 % Mean Corpuscular Volume 86.6 fL Mean Corpuscular Hemoglobin 28.6 pg Mean Corpuscular Hemoglobin Concent 33.1 g/dl Platelet Count 246 K/uL Mean Platelet Volume 8.5 fL Neutrophils (%) (Auto) 68.7 % Lymphocytes (%) (Auto) 17.3 % Monocytes (%) (Auto) 12.4 % Eosinophils (%) (Auto) 1.1 % Basophils (%) (Auto) 0.1 % Neutrophils # (Auto) 6.93 K/uL Lymphocytes # (Auto) 1.75 K/uL Monocytes # (Auto) 1.25 K/uL Eosinophils # (Auto) 0.11 K/uL Basophils # (Auto) 0.01 K/uL Assessment & Plan Assessment: Patient continues to have complaints of right buttock and right leg pain. Seems to be somewhat worse than it was yesterday as the oxycodone is not helping as much with pain control. Her blood counts do continue to drop in her hematocrit today is 24. Per the patient she is always anemic to some degree but her counts are lower than I would expect with the blood loss from surgery. We will continue to monitor this. We are waiting culture results at this point as well. If her leg symptoms continue exploration of the wound and culture may be reasonable. We as well as the patient would like to try to avoid this if at all possible if we can get her symptoms better controlled. We will continue to follow.
[2018-03-15] MEDS ORDERED: hydrOXYzine HCL 25 MG TAB PO ONE (11:15)
[2018-03-15] MEDS: KETOROLAC TROMETHAMINE 15 MG/ML VIAL IV PRN ×2 (11:39→20:57)
[2018-03-15 12:01] VITALS: BP 155/61; PULSE 76; TEMP 37; O2SAT 96
[2018-03-15 15:31] VITALS: BP 149/72; PULSE 82; TEMP 36.7; O2SAT 93
[2018-03-15] MEDS ORDERED: INSULIN ASPART 100 UNITS/ML 3 ML PEN SC ONE (17:20)
[2018-03-15 19:45] VITALS: BP 149/54; PULSE 81; TEMP 37.6; O2SAT 98
--- NOTE | 2018-03-15 20:13 | Progress Note ---
Progress Note Date of Service Mar 15, 2018. Progress Note Reviewed patient blood sugar history and history of present illness after being call about blood sugar of > 400. Changed sliding scale coverage to a correction factor of 15 and carb coverage to 5. Due to patient being nauseous earlier and also hypoglycemic in the morning there was no carb coverage throughout the day. The Lantus evening dose was also decreased to 10 units while trying to correct the blood glucose levels. If after 4 am the BSG does not go below 250 may want to consider insulin drip at that time. Nursing provided with instruction to chest BSG at 12am and 4am to give sliding scale coverage at that time. Will continue to monitor the patient throughout the night
[2018-03-15] MEDS: hydrOXYzine HCL 25 MG TAB PO SCH (20:46)
[2018-03-15] MEDS: ATORVASTATIN 40 MG TAB PO SCH (20:47)
[2018-03-15] MEDS ORDERED: INSULIN GLARGINE SOLOSTAR 100 UNITS/ML 3 ML PEN SC ONE ×2 (21:00→21:45)
[2018-03-15] MEDS ORDERED: VANCOMYCIN TROUGH ONE (21:30)
[2018-03-16] VITALS (12 sets, daily range): BP systolic 126–188; BP diastolic 55–88; PULSE 72–84; TEMP 36.7–37.3; O2SAT 92–99
[2018-03-16] MEDS: INSULIN ASPART 100 UNITS/ML 3 ML PEN SC SCH ×6 (04:07→21:25)
--- NOTE | 2018-03-16 06:58 | Family Medicine Progress Note ---
Progress Note Date of Service Mar 16, 2018. Subjective Pt evaluation today including: conversation w/ patient, physical exam, chart review, lab review, review of studies, review of inpatient medication list Patient well this morning, sitting out of bed. Her main complaint is persistent sciatic pain in her right lower extremity radiating to posterior knee (prior to surgery it went down into her foot). Pain worsens with transition/movement. She is finding the Toradol and ice pack application to be helpful. She was informed of her repeat cultures being positive, though she continues to deny fevers or chills. She notes improved sleep and less anxiety with the hydroxyzine, and no need for the lorazepam. She has not had any episodes of hyperventilation in the last 24 hours. She is also using the incentive spirometry frequently and with correct technique. Her nausea is improved, although she still states decreased appetite. She continues feeling constipated but denies issues with voiding. She otherwise denies headaches, CP, palpitations, dyspnea, abdominal pain. ROS is unremarkable except as noted above. Objective Vital Signs Date Time Temp Pulse Resp B/P (MAP) Pulse Ox O2 Delivery O2 Flow Rate FiO2 03/16/18 06:19 94 Room Air 21 03/16/18 05:51 36.8 74 17 163/88 (113) 98 Room Air 03/16/18 00:53 36.7 80 19 135/55 (81) 97 Room Air 03/15/18 20:00 Room Air 03/15/18 19:45 37.6 81 20 149/54 (85) 98 Room Air 03/15/18 15:31 36.7 82 18 149/72 (97) 93 Room Air 03/15/18 12:01 37.0 76 18 155/61 (92) 96 Room Air 03/15/18 08:00 92 Room Air 03/15/18 07:17 36.4 72 18 151/52 (85) 92 Room Air Physical Exam Notes: General Appearance: WD/WN, no apparent distress Eyes: normal inspection ENT: hearing grossly normal Neck: supple Respiratory/Chest: normal breath sounds, no respiratory distress, no accessory muscle use Cardiovascular: regular rate, rhythm, no murmur Abdomen: normal bowel sounds, non tender, soft Extremities: no calf tenderness, + pedal edema (+1 to mid zheng) Neurologic/Psychiatric: alert, normal mood/affect, oriented x 3 Skin: normal color, warm/dry, no rash, + pertinent finding (vertical about 10cm surgical scar on lumbar spine with steri-strips - healing well without any drainage; no TTP) Laboratory Results Results Past 24 Hours Test 03/15/18 16:27 03/15/18 16:28 03/15/18 19:03 03/15/18 19:04 Range/Units Bedside Glucose 387 434 470 444 70-90 mg/dl Test 03/15/18 20:33 03/15/18 21:27 03/16/18 00:08 03/16/18 04:07 Range/Units Bedside Glucose 331 143 64 70-90 mg/dl Vancomycin Level Trough 16.3 SEE COMMENT mcg/ml Test 03/16/18 04:23 03/16/18 07:26 03/16/18 07:29 03/16/18 11:20 Range/Units Bedside Glucose 82 141 104 70-90 mg/dl White Blood Count 11.17 4.8-10.8 K/uL Red Blood Count 2.96 4.2-5.4 M/uL Hemoglobin 8.5 12.0-16.0 g/dL Hematocrit 25.5 37-47 % Mean Corpuscular Volume 86.1 80-100 fL Mean Corpuscular Hemoglobin 28.7 25-34 pg Mean Corpuscular Hemoglobin Concent 33.3 32-36 g/dl RDW Standard Deviation 41.9 36.4-46.3 fL RDW Coefficient of Variation 13.4 11.5-14.5 % Platelet Count 283 130-400 K/uL Mean Platelet Volume 8.4 7.4-10.4 fL Sodium Level 133 136-145 mmol/L Potassium Level 3.9 3.5-5.1 mmol/L Chloride Level 100 98-107 mmol/L Carbon Dioxide Level 26 21-32 mmol/L Anion Gap 7.0 3-11 mmol/L Blood Urea Nitrogen 16 7-18 mg/dl Creatinine 0.94 0.60-1.20 mg/dl Est Creatinine Clear Calc Drug Dose 75.9 ml/min Estimated GFR () 75.9 Estimated GFR (Non- 65.5 BUN/Creatinine Ratio 17.4 10-20 Random Glucose 125 70-99 mg/dl Calcium Level 7.9 8.5-10.1 mg/dl Microbiology Results 03/16/18 Blood Culture, Received Pending 03/16/18 Blood Culture, Received Pending Assessment and Plan 62 y/oF with hx of DM I, HTN, HLD, PMR, and lumbar stenosis s/p surgery for L4- 5 decompression and fusion on 03/07 and discharged on 03/09. Admitted for severe lower back pain radiating to R buttocks region (similar to pain prior to surgery) and SOB in the setting of a positive blood culture (gram+ cocci) and fever at outside ED on 03/12 concerning for bacteremia. No neurologic deficits noted. ID and ortho on board. Fever and (+) blood cultures in view of recent lumbar fusion on 03/07 - ID consulted, recs appreciated. Vitals stable, mild leukocytosis, no active drainage, erythema or fluctuance at surgical wound site. Outside ED BCx - one grew G+ cocci, other neg. Repeat BCx from 03/14 similarly show one grew G+ cocci, other neg. Echo 03/16 did not show vegetations - Repeat blood cultures drawn 03/16 - Per ortho, plan for I&D with cultures to confirm presence of deep wound infection scheduled for 03/17 - patient to be NPO after midnight tonight - If persistent bacteremia, will consider ASIA - Continue empiric antibiotic coverage with vancomycin - Trend CBC and trace cultures Back pain + sciatic symptoms - persistent post surgery. Ortho (Dr. Lubin) consulted, recs appreciated - Continue pain management regimen - ice pack, oxycodone, Toradol (day 2/5), duloxetine and tizanidine. Patient has tramadol and Dilaudid ordered, but has not been taking these. - Per ortho, plan for I&D with possible decompression of pressure around nerves on 03/17 for improved symptoms. Patient to be NPO after midnight. - PT/OT ordered Hyperventilation 2/2 anxiety (has history of this) vs. pain - anxiety improved, no further hyperventilation episodes - Continue hydroxyzine at nights. Lorazepam discontinued. - Continue home dose duloxetine - If ongoing dyspnea/SOB, will consider CT to r/o PE in view of recent surgery and decreased mobilization - although recent venous Doppler of bilateral LEs negative Constipation - attributable to opioid use, last BM t7/7 - Continue scheduled bowel regimen with docusate and MiraLax. Poor sleep possibly 2/2 sleep apnea - patient states she has had sleep study performed recently, but is unsure of results yet. Nocturnal pulse ox study showed small amount of time <88% sats - CPAP ordered for when sleeping DM - high sugars yesterday evening resulted in further increase in Lantus dose and tighter Novolog control by night physician. However, patient became hypoglycemic in the morning again as a result. - Continue Lantus 40 units BID (home dose) + ISS (range 120-160, CF 20, and carb coverage of 1:10) + BSG ac/hs - In view of NPO after midnight, will reduce AM Lantus by 50% to 20units PMR - Recently placed on Tocilizumab - received a dose 2 weeks prior (likely ill- timed and additional dosing should be withheld pending full recovery) - Continue chronic prednisone 11mg QAM + pantoprazole GI ppx CAD/ HTN/ HLD - Continue aspirin 81mg QAM, verapamil 240mg, atorvastatin 40mg HS VTE ppx - SCDs FULL CODE Continued [facility] stay due to: multiple IV medications needed Discharge planning: home with home health Resident Tracking Resident Involvement: Resident Care Provided Care Provided: Adult Hospital Medicine Reviewed: Pt Seen/Exam by Me History anxiety much better. back pain controlled Constitutional: denies: fever Respiratory: negative: short of breath Cardiovascular: denies chest pain General Appearance: no apparent distress Respiratory: lungs clear, no respiratory distress Cardiovascular: regular rate, rhythm Gastrointestinal: soft Neurologic/Psychiatric: alert, oriented x 3 Skin Characteristics: warm/dry Assessment/Plan Resident Physician Supervision Note: I independently interviewed and examined the patient and verified the stanley history and physical, reviewed labs and image studies, discussed the case with the resident Dr. West and agree with the findings and care plan.
--- NOTE | 2018-03-16 07:24 | Progress Note ---
Subjective Date of Service: Mar 16, 2018. Subjective intermittent low grade fever, now with + blood cultures, gpc 1/2 remains on IV abx. Objective Vital Signs Date Time Temp Pulse Resp B/P (MAP) Pulse Ox O2 Delivery O2 Flow Rate FiO2 03/16/18 06:19 94 Room Air 21 03/16/18 05:51 36.8 74 17 163/88 (113) 98 Room Air 03/16/18 00:53 36.7 80 19 135/55 (81) 97 Room Air 03/15/18 20:00 Room Air 03/15/18 19:45 37.6 81 20 149/54 (85) 98 Room Air 03/15/18 15:31 36.7 82 18 149/72 (97) 93 Room Air 03/15/18 12:01 37.0 76 18 155/61 (92) 96 Room Air 03/15/18 08:00 92 Room Air Laboratory Results Item Value Date Time Blood Culture - Preliminary Resulted 03/14/18 1259 Blood Gram Positive Cocci Last 24 Hours Test 03/15/18 11:33 03/15/18 16:27 03/15/18 16:28 03/15/18 19:03 Bedside Glucose 221 mg/dl 387 mg/dl 434 mg/dl 470 mg/dl Test 03/15/18 19:04 03/15/18 20:33 03/15/18 21:27 03/16/18 00:08 Bedside Glucose 444 mg/dl 331 mg/dl 143 mg/dl Vancomycin Level Trough 16.3 mcg/ml Test 03/16/18 04:07 03/16/18 04:23 03/16/18 04:44 Bedside Glucose 64 mg/dl 82 mg/dl Assessment and Plan (1) Gram positive septicemia Assessment & Plan: concerning for infection, especially with previous blood culture + and recent surgery, continue abx, repeat cultures, will need echo Continued [facility] stay due to: multiple IV medications needed Discharge planning: uncertain
[2018-03-16] MEDS: INSULIN GLARGINE SOLOSTAR 100 UNITS/ML 3 ML PEN SC SCH ×2 (07:56→21:22)
[2018-03-16] MEDS: HYDROmorphone INJ 0.5 MG/0.5 ML SYR IV PRN ×2 (07:57→20:18)
[2018-03-16] MEDS: ASPIRIN 81 MG ECTAB PO SCH (07:58)
[2018-03-16] MEDS: DULOXETINE HCL 60 MG CAP PO SCH (07:58)
[2018-03-16] MEDS: PANTOprazole SOD 40 MG TAB PO SCH (07:58)
[2018-03-16] MEDS: DOCUSATE SODIUM 100 MG CAP PO SCH ×2 (07:58→21:18)
[2018-03-16] MEDS: FERROUS SULFATE 325 MG TAB PO SCH ×2 (07:58→17:01)
[2018-03-16] MEDS: MAGNESIUM OXIDE 400 MG TAB PO SCH ×2 (07:58→21:18)
[2018-03-16] MEDS: VERAPAMIL HCL 240 MG TABCR PO SCH (07:59)
[2018-03-16] MEDS: POLYETHYLENE (MIRALAX) 17 GM PACK PO SCH (07:59)
[2018-03-16 08:12] LABS: HEMATOCRIT 25.5 % (37-47); HEMOGLOBIN 8.5 g/dL (12.0-16.0); MEAN CELL VOLUME 86.1 fL (80-100); MEAN CORPUSCULAR HEMOGLOBIN 28.7 pg (25-34); MEAN CORPUSCULAR HGB CONC 33.3 g/dl (32-36); MEAN PLATELET VOLUME 8.4 fL (7.4-10.4); PLATELET COUNT 283 K/uL (130-400); RED CELL DISTRIBUTION WIDTH CV 13.4 % (11.5-14.5); RED CELL DISTRIBUTION WIDTH SD 41.9 fL (36.4-46.3); WHITE BLOOD COUNT 11.17 K/uL (4.8-10.8)
[2018-03-16 08:46] LABS: CALCIUM 7.9 mg/dl (8.5-10.1); CREATININE 0.94 mg/dl (0.60-1.20); POTASSIUM 3.9 mmol/L (3.5-5.1)
--- NOTE | 2018-03-16 10:35 | Orthopedic Progress Note ---
Orthopedic Progress Note Date of Service Mar 16, 2018. Subjective Additional Notes: Patient still has complaints of pain across the lower portion of her back in the right buttock going down the right leg. The pain seems to be somewhat worse than it was yesterday. She had a positive blood culture back and a new set was drawn this morning. She continues to be on antibiotics. She denies any other numbness, tingling, paresthesias. Objective On exam patient is seated in a chair. Her strength and sensation are both intact both lower extremities. Her wound remains benign. She is nontender the calves or abdomen. Date Time Temp Pulse Resp B/P (MAP) Pulse Ox O2 Delivery O2 Flow Rate FiO2 03/16/18 07:50 37.3 75 16 162/76 (104) 96 Room Air 03/16/18 06:19 94 Room Air 21 03/16/18 05:51 36.8 74 17 163/88 (113) 98 Room Air 03/16/18 00:53 36.7 80 19 135/55 (81) 97 Room Air 03/15/18 20:00 Room Air 03/15/18 19:45 37.6 81 20 149/54 (85) 98 Room Air 03/15/18 15:31 36.7 82 18 149/72 (97) 93 Room Air 03/15/18 12:01 37.0 76 18 155/61 (92) 96 Room Air Laboratory Results 24 Hours: Test 03/16/18 07:26 Hematocrit 25.5 % Hemoglobin 8.5 g/dL Assessment & Plan Assessment: Patient continues to have significant pain Due to a possible deep wound infection. Plan: Patient presents with continued pain and clinically more suspicious of deep wound infection. I have discussed the case with Dr. Lubin and at this point we are going to plan for an I&D on 03/17/2018. I have discussed the procedure in detail the patient. We will obtain cultures at the time of the procedure to confirm that there is or is not an infection present. As well so we can relieve a lot of the pressure around the nerves and should help decrease her right leg pain. She will be made n.p.o. after midnight and her blood sugars will need to be closely monitored. I have answered all her questions to her satisfaction including the risks and benefits of the procedure and patient is willing to proceed. (1) Gram positive septicemia
--- NOTE | 2018-03-16 11:02 | Pharmacy Progress Note ---
Pharmacy Abx Dose Short Note Date of Service Mar 16, 2018. Assessment & Plan Assessment 62 year old female receiving vancomycin for treatment of bacteremia. Day # 4 of antimicrobial therapy. Plan Vancomycin * Trough level of 16.3 mcg/mL is therapeutic. * Continue dose of 1500 mg IV every 16 hours * Goal trough level : 15 to 20 mcg/mL * Trough or random level ordered for: repeat as clinically indicated Pharmacy will continue to follow and will adjust dose/frequency as necessary. Thank you.
--- NOTE | 2018-03-16 13:45 | ECHOCARDIOGRAM REPORT ---
*NOTICE TO RECEIVING DEMOCRAT AGENCY This information is strictly Confidential and protected under [place] law. [place] law prohibits you from making any further disclosure of this information unless further disclosure is expressly permitted by the written consent of the person to whom it pertains or is authorized by law. A general authorization for the release of medical or other information is not sufficient for this purpose. Hospital accepts no responsibility if the information is made available to any other person, INCLUDING THE PATIENT. Interpretation Summary * Name: KVNG DURAN Study Date: 03/16/2018 12:41 PM BP: 150/71 mmHg * Patient Location: C.2E\S\E207\S\1 HR: 84 * : 1955 (M/d/yyyy) Gender: Female Height: 63 in * Age: 62 yrs Ethnicity: [place] Weight: 248 lb * Ordering Physician: Jessi West. * Referring Physician: UNKNOWN * Performed By: Kimberly Guevara RCS * * Reason For Study: + BLOOD CULTURES X 2 WITH GRAM + COCCI * BSA: 2.1 m2 * -- Conclusions -- * The left ventricle is normal in size. * There is normal left ventricular wall thickness. * Left ventricular systolic function is normal. * Ejection Fraction = 65-70%. * The left ventricular wall motion is normal. * The right ventricle is normal in size and function. * The right ventricular systolic function is normal as assessed by tricuspid annular plane systolic excursion (TAPSE) (normal >1.5 cm). * Calcified, trileaflet aortic valve with calcification of the RCC and NCC. * Normal LA Pressures * If persistent bacteremia consider ASIA Procedure Details * A complete two-dimensional transthoracic echocardiogram was performed (2D, M-mode, Doppler and color flow Doppler). Left Ventricle * The left ventricle is normal in size. * There is normal left ventricular wall thickness. * Left ventricular systolic function is normal. * Ejection Fraction = 65-70%. * The left ventricular wall motion is normal. Right Ventricle * The right ventricle is normal in size and function. * The right ventricular systolic function is normal as assessed by tricuspid annular plane systolic excursion (TAPSE) (normal >1.5 cm). Atria * The left atrial size is normal. * Right atrial size is normal. Mitral Valve * The mitral valve is grossly normal. * There is trace mitral regurgitation. Tricuspid Valve * The tricuspid valve is not well visualized, but is grossly normal. * There is trace tricuspid regurgitation. Aortic Valve * Calcified, trileaflet aortic valve with calcification of the RCC and NCC. * No aortic regurgitation is present. Pulmonic Valve * The pulmonic valve is not well seen, but is grossly normal. * There is no pulmonic valvular regurgitation. Great Vessels * There is aortic root sclerosis/calcification. Pericardium/Pleural * There is no pericardial effusion. Great Vessels * Normal inferior vena cava diameter and respiratory variation suggests normal central venous pressure. Left Ventricular Diastolic Function * Normal LA Pressures MMode 2D Measurements and Calculations IVSd 1.5 cm IVSs 2.0 cm LVIDd 4.3 cm LVIDs 3.0 cm LVPWd 1.6 cm LVPWs 2.0 cm IVS/LVPW 0.96 FS 29.6 % EDV(Teich) 84.1 ml ESV(Teich) 36.2 ml EF(Teich) 56.9 % EDV(cubed) 80.7 ml ESV(cubed) 28.2 ml EF(cubed) 65.1 % % IVS thick 34.7 % % LVPW thick 24.6 % LV mass(C)d 272.7 grams LV mass(C)dI 128.7 grams/m\S\2 LV mass(C)s 268.8 grams LV mass(C)sI 126.9 grams/m\S\2 SV(Teich) 47.8 ml SI(Teich) 22.6 ml/m\S\2 SV(cubed) 52.6 ml SI(cubed) 24.8 ml/m\S\2 Ao root diam 3.2 cm Ao root area 8.1 cm\S\2 LA dimension 3.5 cm LA/Ao 1.1 LVOT diam 2.1 cm LVOT area 3.6 cm\S\2 LVAd ap4 32.0 cm\S\2 LVLd ap4 8.6 cm EDV(MOD-sp4) 96.9 ml EDV(sp4-el) 101.6 ml LVAs ap4 21.7 cm\S\2 LVLs ap4 7.9 cm ESV(MOD-sp4) 50.1 ml ESV(sp4-el) 50.3 ml EF(MOD-sp4) 48.3 % EF(sp4-el) 50.5 % LVAd ap2 28.6 cm\S\2 LVLd ap2 7.9 cm EDV(MOD-sp2) 85.0 ml EDV(sp2-el) 87.6 ml LVAs ap2 16.8 cm\S\2 LVLs ap2 6.9 cm ESV(MOD-sp2) 34.2 ml ESV(sp2-el) 34.7 ml EF(MOD-sp2) 59.8 % EF(sp2-el) 60.4 % LVLd %diff -7.66 % EDV(MOD-bp) 91.6 ml LVLs %diff -14.22 % ESV(MOD-bp) 44.0 ml EF(MOD-bp) 52.0 % SV(MOD-sp4) 46.8 ml SI(MOD-sp4) 22.1 ml/m\S\2 SV(MOD-sp2) 50.8 ml SI(MOD-sp2) 24.0 ml/m\S\2 SV(MOD-bp) 47.6 ml SI(MOD-bp) 22.5 ml/m\S\2 SV(sp4-el) 51.3 ml SI(sp4-el) 24.2 ml/m\S\2 SV(sp2-el) 52.9 ml SI(sp2-el) 25.0 ml/m\S\2 Doppler Measurements and Calculations MV E max vivien 125.1 cm/sec MV A max vivien 79.3 cm/sec MV E/A 1.6 MV P1/2t max vivien 111.3 cm/sec MV P1/2t 48.6 msec MVA(P1/2t) 4.5 cm\S\2 MV dec slope 670.9 cm/sec\S\2 MV dec time 0.17 sec Ao V2 max 193.0 cm/sec Ao max PG 14.9 mmHg Ao max PG (full) 10.4 mmHg DIDIER(V,A) 2.0 cm\S\2 DIDIER(V,D) 2.0 cm\S\2 LV V1 max PG 4.5 mmHg LV V1 max 106.4 cm/sec PA V2 max 113.9 cm/sec PA max PG 5.2 mmHg
[2018-03-16] MEDS: VANCOMYCIN IV 1,500 MG in SODIUM CHLORIDE 0.9% 500ML 500 ML IV SCH (14:00)
[2018-03-16] MEDS: KETOROLAC TROMETHAMINE 15 MG/ML VIAL IV PRN (15:16)
[2018-03-16] MEDS: hydrOXYzine HCL 25 MG TAB PO SCH (21:18)
[2018-03-16] MEDS: OXYCODONE HCL IR 5 MG TAB (IMMEDIATE RELEASE) PO PRN (21:19)
[2018-03-16] MEDS: ATORVASTATIN 40 MG TAB PO SCH (21:19)
[2018-03-17] VITALS (7 sets, daily range): BP systolic 128–185; BP diastolic 60–83; PULSE 80–96; TEMP 36.6–37.6; O2SAT 92–98; BMI 44.7
[2018-03-17] MEDS: OXYCODONE HCL IR 5 MG TAB (IMMEDIATE RELEASE) PO PRN ×2 (02:51→22:47)
[2018-03-17 06:08] LABS: HEMATOCRIT 25.3 % (37-47); HEMOGLOBIN 8.4 g/dL (12.0-16.0); MEAN CELL VOLUME 86.9 fL (80-100); MEAN CORPUSCULAR HEMOGLOBIN 28.9 pg (25-34); MEAN CORPUSCULAR HGB CONC 33.2 g/dl (32-36); MEAN PLATELET VOLUME 8.1 fL (7.4-10.4); PLATELET COUNT 318 K/uL (130-400); RED CELL DISTRIBUTION WIDTH CV 13.6 % (11.5-14.5); RED CELL DISTRIBUTION WIDTH SD 43.3 fL (36.4-46.3)
[2018-03-17] MEDS ORDERED: GLUCOSE 10 TABS/TUBE ONE (06:29)
[2018-03-17] MEDS: VANCOMYCIN IV 1,500 MG in SODIUM CHLORIDE 0.9% 500ML 500 ML IV SCH ×2 (06:34→22:26)
[2018-03-17] MEDS ORDERED: DEXTROSE 50% 50 ML SYR ONE (06:51)
[2018-03-17 06:53] LABS: CALCIUM 8.1 mg/dl (8.5-10.1); CREATININE 0.9 mg/dl (0.60-1.20); POTASSIUM 3.6 mmol/L (3.5-5.1)
[2018-03-17] MEDS: INSULIN ASPART 100 UNITS/ML 3 ML PEN SC SCH ×4 (07:00→21:23)
[2018-03-17] MEDS: KETOROLAC TROMETHAMINE 15 MG/ML VIAL IV PRN (08:17)
[2018-03-17] MEDS: VERAPAMIL HCL 240 MG TABCR PO SCH (08:18)
[2018-03-17] MEDS: FERROUS SULFATE 325 MG TAB PO SCH ×2 (08:18→17:07)
[2018-03-17] MEDS: DOCUSATE SODIUM 100 MG CAP PO SCH ×2 (08:18→21:15)
[2018-03-17] MEDS: PANTOprazole SOD 40 MG TAB PO SCH (08:19)
[2018-03-17] MEDS: DULOXETINE HCL 60 MG CAP PO SCH (08:19)
[2018-03-17] MEDS: MAGNESIUM OXIDE 400 MG TAB PO SCH ×2 (08:19→21:15)
[2018-03-17] MEDS: PREDNISONE PO SCH ×2 (08:20)
[2018-03-17] MEDS: ASPIRIN 81 MG ECTAB PO SCH (08:20)
[2018-03-17] MEDS: POLYETHYLENE (MIRALAX) 17 GM PACK PO SCH (08:20)
[2018-03-17] MEDS ORDERED: LORAZEPAM 2 MG/ML 1 ML VIAL IV STA (08:43)
[2018-03-17] MEDS ORDERED: INSULIN GLARGINE SOLOSTAR 100 UNITS/ML 3 ML PEN SC ONE (09:00)
[2018-03-17] MEDS ORDERED: VANCOMYCIN HCL 1000MG/20ML VIAL ONE (10:13)
[2018-03-17] MEDS ORDERED: BUPIVACAINE/EPINEPHRINE 0.5% MPF 1:200,000 30 ML VIAL ONE (10:13)
[2018-03-17] MEDS ORDERED: BACITRACIN 50000 UNIT VIAL ONE ×2 (10:13→11:40)
[2018-03-17] MEDS ORDERED: HYDROmorphone INJ 2 MG/ML SYR/VIAL IV PRN (10:15)
[2018-03-17] MEDS ORDERED: ONDANSETRON INJ 2 MG/ML 2 ML VIAL IV PRN ×2 (10:15→12:15)
[2018-03-17] MEDS ORDERED: MEPERIDINE HCL 25 MG/ML CARP IV PRN (10:15)
[2018-03-17] MEDS ORDERED: FENTANYL CITRATE INJ 50 MCG/1 ML 2 ML VIAL IV PRN (10:15)
[2018-03-17] MEDS ORDERED: NALOXONE HCL 0.4 MG/1 ML VIAL/CARP IV PRN ×2 (10:15→12:15)
[2018-03-17] MEDS ORDERED: FLUMAZENIL 0.1 MG/1 ML 10 ML VIAL IV PRN (10:15)
[2018-03-17] MEDS ORDERED: LABETALOL HCL IV 5 MG/ML 20ML IV PRN (10:15)
[2018-03-17] MEDS ORDERED: EpHEDrine SULFATE INJ 50 MG/ML AMP IV PRN (10:15)
[2018-03-17] MEDS ORDERED: PHENYLEPHRINE 100MCG/ML 5ML SYR IV PRN (10:15)
[2018-03-17] MEDS ORDERED: ATROPINE SULFATE 0.1 MG/ML 5ML SYR IV PRN (10:15)
--- NOTE | 2018-03-17 10:37 | Progress Note ---
Subjective Date of Service: Mar 17, 2018. Subjective Pt evaluation today including: conversation w/ patient, physical exam, chart review, lab review pt seen preop, for I&D today. still with intermittent fevers, low grade. on vanco, tolerating well. still with back pain, no drainage. lood culture 1/ gpc, ID pending, repeat cultures 03/16 pending. no cp, sob, cough, no n/v/d. all remaining ros reviewed and are negative. Objective Vital Signs Date Time Temp Pulse Resp B/P (MAP) Pulse Ox O2 Delivery O2 Flow Rate FiO2 03/17/18 08:00 Room Air 03/17/18 03:10 36.9 83 18 179/70 (106) 98 Room Air 172/78 (109) 03/16/18 23:56 36.9 72 16 133/55 (81) 97 Room Air 03/16/18 22:12 144/56 (85) 03/16/18 22:09 77 98 21 03/16/18 20:14 180/61 (100) 03/16/18 20:00 Room Air 03/16/18 19:36 37.1 80 22 181/81 (114) 97 Room Air 188/76 (113) 03/16/18 16:00 92 Room Air 03/16/18 15:39 37.1 84 22 126/62 (83) 99 Room Air 03/16/18 10:50 36.9 82 18 150/71 (97) 92 Room Air Physical Exam General Appearance: WD/WN, no apparent distress Eyes: normal inspection, EOMI Neck: supple Respiratory/Chest: normal breath sounds, no respiratory distress Cardiovascular: regular rate, rhythm, no edema Abdomen: non tender, soft Extremities: non-tender, no pedal edema Neurologic/Psychiatric: alert, oriented x 3 Skin: normal color Laboratory Results Item Value Date Time Blood Culture - Preliminary Resulted 03/14/18 1259 Blood Gram Positive Cocci Last 24 Hours Test 03/16/18 11:20 03/16/18 16:17 03/16/18 20:17 03/17/18 05:42 Bedside Glucose 104 mg/dl 141 mg/dl 193 mg/dl White Blood Count 13.10 K/uL Red Blood Count 2.91 M/uL Hemoglobin 8.4 g/dL Hematocrit 25.3 % Mean Corpuscular Volume 86.9 fL Mean Corpuscular Hemoglobin 28.9 pg Mean Corpuscular Hemoglobin Concent 33.2 g/dl RDW Standard Deviation 43.3 fL RDW Coefficient of Variation 13.6 % Platelet Count 318 K/uL Mean Platelet Volume 8.1 fL Erythrocyte Sedimentation Rate 25 mm/hr Sodium Level 135 mmol/L Potassium Level 3.6 mmol/L Chloride Level 100 mmol/L Carbon Dioxide Level 27 mmol/L Anion Gap 8.0 mmol/L Blood Urea Nitrogen 13 mg/dl Creatinine 0.90 mg/dl Est Creatinine Clear Calc Drug Dose 80.0 ml/min Estimated GFR () 80.0 Estimated GFR (Non- 69.0 BUN/Creatinine Ratio 14.7 Random Glucose 53 mg/dl Calcium Level 8.1 mg/dl C-Reactive Protein 2.68 mg/dl Test 03/17/18 06:26 03/17/18 06:28 03/17/18 06:48 03/17/18 07:05 Bedside Glucose 58 mg/dl 61 mg/dl 63 mg/dl 97 mg/dl Test 03/17/18 10:25 Bedside Glucose 66 mg/dl Assessment and Plan (1) Gram positive septicemia Assessment & Plan: Follow cultures, for OR today, await findings. Continued [facility] stay due to: multiple IV medications needed Discharge planning: home with home health
[2018-03-17] MEDS ORDERED: GENTAMICIN SULFATE 40 MG/ML 2 ML VIAL ONE (10:41)
--- NOTE | 2018-03-17 11:03 | History & Physical Bridge Note ---
H&P Re-Evaluation Bridge Note: I have examined the patient, reviewed the History & Physical and in the interval since the performance of the History & Physical I have noted the following changes of clinical significance: No changes noted
[2018-03-17] MEDS ORDERED: FENTANYL CITRATE INJ 50 MCG/1 ML 2 ML VIAL ONE (11:20)
[2018-03-17] MEDS ORDERED: SUCCINYLCHOLINE 100MG/5ML SYR IV ONE (11:42)
[2018-03-17] MEDS ORDERED: LIDOCAINE HCL 2% 2 ML VIAL (20MG/ML) ONE ×2 (11:43→11:50)
[2018-03-17] MEDS ORDERED: PROPOFOL IV EMULSION 10 MG/ML 20 ML VIAL ONE (11:43)
[2018-03-17] MEDS ORDERED: DEXAMETHASONE SOD INJ 4 MG/ML VIAL ONE (11:43)
[2018-03-17] MEDS ORDERED: ONDANSETRON INJ 2 MG/ML 2 ML VIAL ONE (11:43)
--- NOTE | 2018-03-17 12:03 | [facility] Operative Report ---
Operative Report Operative Date Mar 17, 2018. Pre-Operative Diagnosis Hematoma rule out spinal abcess Post-Operative Diagnosis Hematoma rule out spinal abcess Procedure(s) Performed Incision and drainage lumbar spine, application of stimulan beads Surgeon Dr. Lubin Photo Editor Surgeon(s) Wanda SAHA Estimated Blood Loss 25ml Findings Breakdown products consistent with seroma no evidence of gross purulence Specimens culture #1 lumbar spine anerobic, aerobic, gram stain sent at 1155 Anesthesia Type General Description of Procedure Patient was met with preoperatively case discussed all questions addressed. After informed consent obtained patient was taken to the operative suite underwent intubation and placed in a prone position the Omar table on top of the Chu frame. All bony prominences well-padded eyes inspected to ensure no external pressure placed upon. This point the lumbar spine was prepped and draped in normal sterile fashion. Utilizing the previous incision site sharp dissection with the assistance of Bovie cautery was performed down to and exposing the fascial layer. Significant seroma was noted. Then incised the fascia removing Vicryl suture. Again this large seroma identified. Cultures were taken. The area was then explored to ensure there is no compression on the dural or exiting nerve roots. Is an copiously irrigated with several liters of antibiotic solution. I did place 10 cc of stimulant beads with Vanco and gent. A drain was then inserted. Incision was then closed with 1 Vicryl fascia 2-0 Vicryl simultaneous and 4 Monocryl for fast closure Steri-Strips sterile dressings placed. Patient will continue to PACU in stable condition. Please note Karen Serrano was present throughout the entire procedure involved in patient positioning complex portions of the surgery and fashion closure. I attest to the content of the Intraoperative Record and any orders documented therein. Any exceptions are noted below.
[2018-03-17] MEDS ORDERED: FAMOTIDINE 20 MG TAB PO PRN (12:15)
[2018-03-17] MEDS ORDERED: ACETAMINOPHEN IV 100 ML IV PRN (12:15)
[2018-03-17] MEDS ORDERED: ALUMINUM/MAGNESIUM SUSP 30 ML UDC PO PRN (12:15)
[2018-03-17] MEDS ORDERED: BISACODYL 10 MG SUPP PR PRN (12:15)
[2018-03-17] MEDS ORDERED: LORAZEPAM 0.5 MG TAB PO PRN (12:15)
[2018-03-17] MEDS ORDERED: ACETAMINOPHEN 500 MG TAB PO PRN (12:15)
[2018-03-17] MEDS ORDERED: METOCLOPRAMIDE HCL INJ 5 MG/ML 2 ML VIAL IV PRN (12:15)
[2018-03-17] MEDS ORDERED: SOD PHOSPHATE/SOD BIPHOSPHATE ENEMA 132 ML BTL PR PRN (12:15)
[2018-03-17] MEDS ORDERED: LORAZEPAM INJ 0.5 MG in SYRINGE 0 ML IV PRN (12:15)
[2018-03-17] MEDS ORDERED: DO NOT ADMINISTER FLU VACCINE PRN (12:15)
[2018-03-17] MEDS ORDERED: MAGNESIUM HYDROXIDE SUSP 30 ML UDC PO PRN (12:15)
[2018-03-17] MEDS ORDERED: PROMETHAZINE HCL INJ 12.5 MG in SODIUM CHLORIDE 0.9% 50ML 50 ML IV PRN (12:15)
[2018-03-17] MEDS ORDERED: hydrOXYzine HCL 25 MG TAB PO PRN (12:15)
[2018-03-17] MEDS ORDERED: DO NOT ADMINISTER PNEUMOCOCCAL VACCINE PRN (12:15)
--- NOTE | 2018-03-17 13:10 | Anesthesiology Progress Note ---
Anesthesia Post Op Note Date & Time Mar 17, 2018 at 13:07 Vital Signs Pain Intensity: 4 Vital Signs Past 12 Hours Date Time Temp Pulse Resp B/P (MAP) Pulse Ox O2 Delivery O2 Flow Rate FiO2 03/17/18 12:45 84 17 151/72 96 Oxymask 10 03/17/18 12:35 86 12 160/71 95 Oxymask 10 03/17/18 12:28 36.8 97 16 158/73 95 Oxymask 10 03/17/18 08:00 Room Air 03/17/18 03:10 36.9 83 18 179/70 (106) 98 Room Air 172/78 (109) Notes Mental Status: alert / awake / arousable, participated in evaluation Pt Amnestic to Procedure: Yes Nausea / Vomiting: adequately controlled Pain: adequately controlled Airway Patency, RR, SpO2: stable & adequate BP & HR: stable & adequate Hydration State: stable & adequate Anesthetic Complications: no major complications apparent The patient is doing well. She is awake and comfortable. Her SpO2 is in the mid 90s when awake but drops to the low 90s when she rests with 2 L NC oxygen. She was given an incentive spirometer to use and will have continuous pulse oximetry on the floor. She is otherwise stable and will go back to the medical ICU.
[2018-03-17] MEDS: SODIUM CHLORIDE 0.9% 1000ML 1,000 ML IV SCH ×2 (13:49→20:58)
--- NOTE | 2018-03-17 15:39 | Family Medicine Progress Note ---
Progress Note Date of Service Mar 17, 2018. Subjective Pt evaluation today including: conversation w/ patient, physical exam, chart review, lab review Pain: reports persistent back pain this AM PO Intake: NPO for procedure o/w tolerating Voiding: no voiding problems This AM pt reported persistent back pain radiating to R buttocks and lateral thigh region. Reports some return of anxiety in anticipation of procedure this AM otherwise sob improved. Constitutional: No fever, No chills Respiratory: No shortness of breath Cardiovascular: No chest pain Abdomen: No pain, No nausea, No vomiting, No diarrhea, No constipation Musculoskeletal: + problem reported (back pain) Female : No dysuria Medications Current Inpatient Medications Medications (Trade) Dose Ordered Sig/Jovanni Route Start Time Stop Time Status Last Admin Dose Admin Aspirin (Ecotrin Tab) 81 mg QAM PO 03/14/18 09:00 04/13/18 08:59 03/17/18 08:20 81 MG Atorvastatin Calcium (Lipitor Tab) 40 mg HS PO 03/14/18 21:00 04/13/18 20:59 03/16/18 21:19 40 MG Duloxetine HCl (Cymbalta Cap) 60 mg QAM PO 03/14/18 09:00 04/13/18 08:59 03/17/18 08:19 60 MG Magnesium Oxide (Mag-Ox Tab) 400 mg BID PO 03/14/18 09:00 04/13/18 08:59 03/17/18 08:19 400 MG Tramadol HCl (Ultram Tab) 100 mg Q4H PRN PO 03/13/18 22:00 04/12/18 21:59 Verapamil HCl (Calan-Sr Tab) 240 mg QAM PO 03/14/18 09:00 04/13/18 08:59 03/17/18 08:18 240 MG Pantoprazole Sodium (Protonix Tab) 40 mg QAM PO 03/14/18 09:00 04/13/18 08:59 03/17/18 08:19 40 MG Tizanidine HCl (Zanaflex Tab) 4 mg HS PO 03/13/18 22:30 04/12/18 22:29 03/16/18 21:18 4 MG Ferrous Sulfate (Feosol Tab) 325 mg BIDM PO 03/14/18 07:30 04/13/18 07:29 03/17/18 08:18 325 MG Vancomycin HCl (Consult) 1 ea UD PRN N/A 03/13/18 22:00 04/12/18 21:59 Acetaminophen (Tylenol Tab) 650 mg Q4H PRN PO 03/13/18 22:00 04/12/18 21:59 03/16/18 07:57 650 MG Al Hydrox/Mg Hydrox/Simethicone (Maalox Max Susp) 15 ml Q4H PRN PO 03/13/18 22:00 04/12/18 21:59 Vancomycin HCl 1500 mg/Sodium Chloride 530 ml @ 200 mls/hr Q16H IV 03/14/18 14:00 03/28/18 13:59 03/17/18 06:34 200 MLS/HR Insulin Aspart (novoLOG ASPART) SLIDING SCALE G... ACHS SC 03/14/18 17:00 04/13/18 16:59 03/16/18 21:25 2 UNITS Polyethylene (Miralax Powder Packet) 17 gm DAILY PO 03/15/18 09:00 04/12/18 21:59 Future Hold 03/17/18 08:20 17 GM Docusate Sodium (coLACE CAP) 100 mg BID PO 03/14/18 21:00 04/13/18 20:59 03/17/18 08:18 100 MG Hydroxyzine HCl (Vistaril Tab) 25 mg HS PO 03/15/18 21:00 04/14/18 20:59 03/16/18 21:18 25 MG Ketorolac Tromethamine (Toradol Inj) 15 mg Q6H PRN IV 03/15/18 11:15 03/20/18 11:14 03/17/18 08:17 15 MG Insulin Glargine (Lantus Solostar Pen) 40 units BID SC 03/15/18 21:00 04/12/18 22:29 Future hold 03/16/18 21:22 40 UNITS Prednisone (PredniSONE TAB) 11 mg QAM PO 03/17/18 09:00 04/16/18 08:59 03/17/18 08:20 11 MG Promethazine HCl 12.5 mg/Sodium Chloride 50.5 ml @ 202 mls/hr Q6H PRN IV 03/17/18 12:15 04/16/18 12:14 Ondansetron HCl (Zofran Inj) 4 mg Q6H PRN IV 03/17/18 12:15 04/16/18 12:14 Metoclopramide HCl (Reglan Inj) 10 mg Q6H PRN IV 03/17/18 12:15 04/16/18 12:14 Lorazepam (Ativan Tab) 0.5 mg Q8H PRN PO 03/17/18 12:15 04/16/18 12:14 Lorazepam 0.5 mg/ Syringe 0.25 ml @ 1 mls/min Q8H PRN IV 03/17/18 12:15 04/16/18 12:14 Pneumococcal Polysaccharide Vaccine 1 ea PRN PRN N/A 03/17/18 12:15 04/16/18 12:14 Influenza Virus Vacc Triv Types A&B 1 ea PRN PRN N/A 03/17/18 12:15 04/16/18 12:14 Polyethylene (Miralax Powder Packet) 17 gm Q6 PO 03/19/18 06:00 04/18/18 05:59 Bisacodyl (Dulcolax Supp) 10 mg DAILY PRN CO 03/17/18 12:15 04/16/18 12:14 Magnesium Hydroxide (Milk Of Magnesia Susp) 30 ml DAILY PRN PO 03/17/18 12:15 04/16/18 12:14 Hydromorphone HCl (Dilaudid Inj) 0.5-1mg prn moder... Q3H PRN IV 03/18/18 06:00 04/01/18 05:59 Oxycodone HCl (Roxicodone Immediate Rel Tab) 5-10mg prn moderate to sev... Q4H PRN PO 03/18/18 06:00 04/01/18 05:59 Sodium Chloride 1,000 ml @ 150 mls/hr Q6H40M IV 03/17/18 12:45 04/16/18 12:44 03/17/18 13:49 150 MLS/HR Acetaminophen (Tylenol Tab) 1,000 mg Q8H PRN PO 03/17/18 12:15 04/16/18 12:14 Acetaminophen 100 ml @ 400 mls/hr Q8H PRN IV 03/17/18 12:15 8/8/18 12:14 Naloxone HCl (Narcan Inj) 0.1 mg Q5M PRN IV 03/17/18 12:15 04/16/18 12:14 Senna/Docusate Sodium (Senokot S Tab) 2 tab HS PO 03/17/18 21:00 04/16/18 20:59 Sodium Biphosphate/ Sodium Phosphate (Fleet Enema) 132 ml ONE PRN CO 03/17/18 12:15 04/16/18 12:14 Hydroxyzine HCl (Vistaril Tab) 25 mg Q8H PRN PO 03/17/18 12:15 04/16/18 12:14 Al Hydroxide/Mg Hydroxide (Maalox Susp) 30 ml Q6H PRN PO 03/17/18 12:15 04/16/18 12:14 Famotidine (Pepcid Tab) 20 mg Q12 PRN PO 03/17/18 12:15 04/16/18 12:14 Diphenhydramine HCl (Benadryl Cap) 25 mg Q6H PRN PO 03/17/18 12:15 04/16/18 12:14 Objective Vital Signs Date Time Temp Pulse Resp B/P (MAP) Pulse Ox O2 Delivery O2 Flow Rate FiO2 03/17/18 15:05 81 16 140/65 (90) 95 Nasal Cannula 2.0 03/17/18 14:38 36.6 80 16 145/64 (91) 97 Nasal Cannula 2.0 03/17/18 13:49 36.6 82 18 128/60 (82) 98 Nasal Cannula 2.0 03/17/18 13:35 87 16 144/77 95 Nasal Cannula 2 03/17/18 13:25 36.2 83 15 150/68 95 Nasal Cannula 2 03/17/18 13:15 91 16 118/79 95 Nasal Cannula 2 03/17/18 13:05 84 15 140/77 96 Nasal Cannula 2 03/17/18 12:55 85 19 138/64 91 Nasal Cannula 2 03/17/18 12:45 84 17 151/72 96 Oxymask 10 03/17/18 12:35 86 12 160/71 95 Oxymask 10 03/17/18 12:28 36.8 97 16 158/73 95 Oxymask 10 03/17/18 08:00 Room Air 03/17/18 03:10 36.9 83 18 179/70 (106) 98 Room Air 172/78 (109) 03/16/18 23:56 36.9 72 16 133/55 (81) 97 Room Air 03/16/18 22:12 144/56 (85) 03/16/18 22:09 77 98 21 03/16/18 20:14 180/61 (100) 03/16/18 20:00 Room Air 03/16/18 19:36 37.1 80 22 181/81 (114) 97 Room Air 188/76 (113) 03/16/18 16:00 92 Room Air 03/16/18 15:39 37.1 84 22 126/62 (83) 99 Room Air Physical Exam General Appearance: no apparent distress Eyes: normal inspection Neck: supple Respiratory/Chest: lungs clear, normal breath sounds Cardiovascular: regular rate, rhythm, no murmur Abdomen: normal bowel sounds, non tender, soft Extremities: non-tender, + swelling (1+LE edema) Neurologic/Psychiatric: typist II-XII nml as tested, no motor/sensory deficits, alert, oriented x 3 Skin: + pertinent finding (vertical 10 cm wound on lumbar site TTP with mild erythema (healing well), no drainge) Laboratory Results 03/17/18 05:42 03/17/18 05:42 Test 03/17/18 05:42 03/17/18 13:47 Red Blood Count 2.91 M/uL (4.2-5.4) Mean Corpuscular Volume 86.9 fL (80-100) Mean Corpuscular Hemoglobin 28.9 pg (25-34) Mean Corpuscular Hemoglobin Concent 33.2 g/dl (32-36) RDW Standard Deviation 43.3 fL (36.4-46.3) RDW Coefficient of Variation 13.6 % (11.5-14.5) Mean Platelet Volume 8.1 fL (7.4-10.4) Erythrocyte Sedimentation Rate 25 mm/hr (0-21) Anion Gap 8.0 mmol/L (3-11) Est Creatinine Clear Calc Drug Dose 80.0 ml/min Estimated GFR () 80.0 Estimated GFR (Non- 69.0 BUN/Creatinine Ratio 14.7 (10-20) Calcium Level 8.1 mg/dl (8.5-10.1) C-Reactive Protein 2.68 mg/dl (0-0.29) Bedside Glucose 92 mg/dl (70-90) Assessment and Plan 62 y/oF with hx of DM I, HTN, HLD, PMR, and lumbar stenosis s/p surgery for L4- 5 decompression and fusion on 03/07 and discharged on 03/09. Admitted for severe lower back pain radiating to R buttocks region (similar to pain prior to surgery) and SOB in the setting of a positive blood culture (gram+ cocci) and fever at outside ED on 03/12 concerning for bacteremia. No neurologic deficits noted. A positive blood culture here as well (gram+cocci) with repeat Bcx pending. ID and ortho on board. Had seroma drained and cultured (pending). NOW on vancomycin pending culture results with improved pin. Fever and (+) blood cultures in view of recent lumbar fusion on 03/07 - ID consulted, recs appreciated. Vitals stable, mild leukocytosis, no active drainage, erythema or fluctuance at surgical wound site. Outside ED BCx - one grew G+ cocci, other neg. Repeat BCx from 03/14 similarly show one grew G+ cocci, other neg. Echo 03/16 did not show vegetations - Repeat blood cultures drawn 03/16 - pending - Had I&D with seroma drainage and cultures today - pending - If persistent bacteremia, will consider ASIA - Continue empiric antibiotic coverage with vancomycin pending culture results - Trend CBC and trace cultures Back pain + sciatic symptoms - improved post I&D today with seroma drainage - Continue pain management regimen - ice pack, oxycodone, Toradol (day 3/5), duloxetine and tizanidine. Patient has tramadol and Dilaudid ordered, but has not been taking these. - PT/OT - possible inpatient rehab if unable to achieve goals here Hyperventilation 2/2 anxiety (has history of this) vs. pain - anxiety improved, no further hyperventilation episodes - Continue hydroxyzine at nights. Lorazepam discontinued. - Continue home dose duloxetine - If ongoing dyspnea/SOB, will consider CT to r/o PE in view of recent surgery and decreased mobilization - although recent venous Doppler of bilateral LEs negative Constipation - Continue scheduled bowel regimen with docusate and Miralax Poor sleep possibly 2/2 sleep apnea - patient states she has had sleep study performed recently, but is unsure of results yet. Nocturnal pulse ox study showed small amount of time <88% sats - CPAP ordered for when sleeping DM - Continue Lantus 40 units BID (home dose) + ISS (range 120-160, CF 20, and carb coverage of 1:10) + BSG ac/hs PMR - Recently placed on Tocilizumab - received a dose 2 weeks prior (likely ill- timed and additional dosing should be withheld pending full recovery) - Continue chronic prednisone 11mg QAM + pantoprazole GI ppx CAD/ HTN/ HLD - Continue aspirin 81mg QAM, verapamil 240mg, atorvastatin 40mg HS VTE ppx - SCDs FULL CODE Resident Physician Supervision Note: I interviewed and examined the patient. Discussed with Dr. Snell and agree with findings and plan as documented in the note. Any exceptions or clarifications are listed here: None Documented By: eRid Stout feeling better post op - soreness at surg site but leg radicular pain better cultures noted updated pt and vitals noted nad breathing unlabored no pallor or icterus back pain - hopefully all hematoma related. follow blood cultures and operative cultures. continue current care Resident Involvement: Resident Care Provided Care Provided: Adult Hospital Medicine
[2018-03-17] MEDS: ATORVASTATIN 40 MG TAB PO SCH (21:15)
[2018-03-17] MEDS: hydrOXYzine HCL 25 MG TAB PO SCH (21:15)
[2018-03-17] MEDS: DOCUSATE SODIUM/SENNA 50/8.6MG TAB PO SCH (21:15)
[2018-03-17] MEDS: INSULIN GLARGINE SOLOSTAR 100 UNITS/ML 3 ML PEN SC SCH (21:24)
[2018-03-18] VITALS (8 sets, daily range): BP systolic 107–167; BP diastolic 66–78; PULSE 71–84; TEMP 36.4–36.9; O2SAT 93–98
[2018-03-18] MEDS ORDERED: NURSING DECISION MEDICATION ORDER SCH (05:15)
[2018-03-18] MEDS ORDERED: OXYCODONE HCL IR 5 MG TAB (IMMEDIATE RELEASE) PO PRN (06:00)
[2018-03-18] MEDS ORDERED: HYDROmorphone INJ 0.5 MG/0.5 ML SYR IV PRN (06:00)
[2018-03-18 07:26] LABS: HEMATOCRIT 26.8 % (37-47); MEAN CELL VOLUME 87.3 fL (80-100); MEAN CORPUSCULAR HEMOGLOBIN 29.3 pg (25-34); MEAN CORPUSCULAR HGB CONC 33.6 g/dl (32-36); MEAN PLATELET VOLUME 8.3 fL (7.4-10.4); PLATELET COUNT 334 K/uL (130-400); RED CELL DISTRIBUTION WIDTH CV 13.6 % (11.5-14.5); RED CELL DISTRIBUTION WIDTH SD 43.3 fL (36.4-46.3); WHITE BLOOD COUNT 16.26 K/uL (4.8-10.8)
[2018-03-18 08:02] LABS: CALCIUM 8.4 mg/dl (8.5-10.1); CREATININE 0.9 mg/dl (0.60-1.20); POTASSIUM 4.4 mmol/L (3.5-5.1)
[2018-03-18] MEDS: MAGNESIUM OXIDE 400 MG TAB PO SCH ×2 (08:57→21:16)
[2018-03-18] MEDS: FERROUS SULFATE 325 MG TAB PO SCH ×2 (08:57→17:44)
[2018-03-18] MEDS: DOCUSATE SODIUM 100 MG CAP PO SCH ×2 (08:58→21:15)
[2018-03-18] MEDS: POLYETHYLENE (MIRALAX) 17 GM PACK PO SCH (08:58)
[2018-03-18] MEDS: PANTOprazole SOD 40 MG TAB PO SCH (08:59)
[2018-03-18] MEDS: PREDNISONE PO SCH ×2 (08:59)
[2018-03-18] MEDS: ASPIRIN 81 MG ECTAB PO SCH (09:00)
[2018-03-18] MEDS: VERAPAMIL HCL 240 MG TABCR PO SCH (09:00)
[2018-03-18] MEDS: DULOXETINE HCL 60 MG CAP PO SCH (09:00)
[2018-03-18] MEDS: INSULIN GLARGINE SOLOSTAR 100 UNITS/ML 3 ML PEN SC SCH ×2 (10:02→21:00)
[2018-03-18] MEDS: INSULIN ASPART 100 UNITS/ML 3 ML PEN SC SCH ×4 (10:03→21:20)
[2018-03-18] MEDS ORDERED: CLC100 PO ×3 (11:29→11:31)
[2018-03-18] MEDS ORDERED: MRLP17 PO ×3 (11:29→11:31)
--- NOTE | 2018-03-18 11:41 | Discharge Instructions ---
Discharge Instructions Date of Service Mar 18, 2018. Admission Reason for Admission: Back Pain At L4-L5 Level Discharge Discharge Diagnosis / Problem: seroma post lumbar surgery Discharge Goals Goal(s): Decrease discomfort, Diagnostic testing, Therapeutic intervention Activity Recommendations Activity Limitations: per Instructions/Follow-up section . Instructions / Follow-Up Instructions / Follow-Up Ms. Juares you were admitted for worsening back pain and concern for blood infection after your recent back surgery. You were re-evaluated by Dr. Lubin who took you to the OR to clean your back wound. A collection of fluid (seroma) was found and drained which was likely causing your pain by compressing your nerves. Your pain improved significantly post procedure. Our physical therapists also worked with you and found you to be stable to go home. Continue using your walker as instructed for ambulation. There was concern for a possible blood infection as one of the two cultures collection at the outside emergency department and one here as well grew a bacteremia that we commonly have in our skin and is usually a false positive result. We were a little more concerned when the same bacteria grew from culture of the fluid collection on your back as well. We consulted our infectious disease specialists who recommended a 6 week course of an antibiotic called daptomycin. Your surgeon placed antibiotic beads on your back as well during the clean out to decrease the risk of a possible wound infection as well. As part of being on this antibiotic you will need weekly lab work as well (CBC, CMP, ESR, CPK). Scripts have been provided for both. Please continue taking your home medications as listed on your discharge instructions We have prescribed you a bowel regimen since you are on oxycodone for pain and had constipation here to prevent you from having further trouble. Please take colace 100mg twice a day as prescribed and miralax once a day 17g as needed for constipation. Follow up with Dr. Lubin as instructed and with your primary care doctor by the end of the week. Current Hospital Diet Patient's current hospital diet: Diabetes Type 1 Diet Discharge Diet Recommended Diet: Diabetes Type 1 Diet Procedures Procedures Performed: Incision and drainage lumbar spine, application of stimulan beads Pending Studies Studies pending at discharge: no Laboratory Results Hemoglobin A1c Test 03/08/18 05:54 Range/Units Estimated Average Glucose 229 mg/dl Hemoglobin A1c 9.6 H 4.5-5.6 % Medical Emergencies . Who to Call and When: Medical Emergencies: If at any time you feel your situation is an emergency, please call 911 immediately. . Non-Emergent Contact Non-Emergency issues call your: Primary Care Provider . . "Provider Documentation" section prepared by Parisa Snell. .
--- NOTE | 2018-03-18 11:54 | Progress Note ---
Progress Note Date of Service Mar 18, 2018. Progress Note Patient's back and leg symptoms are markedly improved. She has been ambulating with a walker without difficulty. On exam she is a chair at the bedside is good strength testing appears comfortable. Assessment status post I&D. Plan at this time and we have very low suspicion of her having an infection. I did place antibiotic beads within the incision site. We will await final recommendations from infectious disease but hopefully she will not require prolonged IV antibiotics. She would like to discharge home tomorrow with home health if possible.
[2018-03-18] MEDS ORDERED: VANCOMYCIN TROUGH ONE (13:30)
--- NOTE | 2018-03-18 14:04 | Pharmacy Progress Note ---
Pharmacy Abx Dose Short Note Date of Service Mar 18, 2018. Assessment & Plan Item Value Date Time Vancomycin Level Trough 18.5 mcg/ml 03/18/18 1311 Assessment 62 year old female receiving Vancomycin for treatment of bacteremia Day # 6 of antimicrobial therapy. Plan Vancomycin * Trough level of 18.5 mcg/mL is therapeutic * Continue dose of 1500 mg IV every 16 hours. Patient's kidney function remains stable. * Goal trough level for bacteremia : 15 to 20 mcg/mL * Will order a trough in the next few days if patient is still on therapy, or sooner if there is a change in patient's condition or kidney function Pharmacy will continue to follow and will adjust dose/frequency as necessary. Thank you.
[2018-03-18] MEDS: VANCOMYCIN IV 1,500 MG in SODIUM CHLORIDE 0.9% 500ML 500 ML IV SCH (14:39)
--- NOTE | 2018-03-18 15:06 | Progress Note ---
Subjective Date of Service: Mar 18, 2018. Subjective Pt evaluation today including: conversation w/ patient, physical exam, chart review, lab review pt s/p I&D seroma, no purulence seen, culture from OR now growing AIRPLANE NAVIGATOR, initial blood culture with same. Remains on vanco, afebrile overnight. wbc increased today, likely reactive post op. Repeat blood cultures negative to date. Less pain today, no f/c. no n/v/d. Drain remains in place. all remaining ros reviewed and are negative. Objective Vital Signs Date Time Temp Pulse Resp B/P (MAP) Pulse Ox O2 Delivery O2 Flow Rate FiO2 03/18/18 14:55 36.6 78 19 107/66 (80) 94 Room Air 03/18/18 11:46 36.8 84 16 167/78 (107) 96 Room Air 03/18/18 08:08 96 Room Air 03/18/18 08:00 Room Air 03/18/18 07:39 36.5 76 14 135/69 (91) 96 Room Air 03/18/18 03:09 36.4 72 18 133/71 (91) 95 Room Air 03/17/18 23:49 Room Air 03/17/18 23:06 37.1 81 16 133/74 (93) 92 Room Air 03/17/18 21:30 37.2 86 18 154/80 (104) 95 Room Air 03/17/18 20:33 37.6 96 17 185/83 (117) 95 Room Air 03/17/18 20:30 Room Air 03/17/18 20:21 Room Air 03/17/18 15:05 81 16 140/65 (90) 95 Nasal Cannula 2.0 Physical Exam General Appearance: WD/WN, no apparent distress Eyes: normal inspection, EOMI Neck: supple Respiratory/Chest: lungs clear, normal breath sounds, no respiratory distress Cardiovascular: regular rate, rhythm, no edema, no murmur Abdomen: non tender, soft Extremities: non-tender, no pedal edema Neurologic/Psychiatric: alert, oriented x 3 Skin: normal color Comments: dressing intact, drain with min serosang fluid Laboratory Results Item Value Date Time Gram Stain - Final Resulted 03/17/18 1146 Abscess Lumbar Blood Culture - Preliminary Resulted 03/14/18 1259 Blood Coag Neg Staph Not Lugdunensis Blood Culture - Preliminary Resulted 03/16/18 0904 Blood NO GROWTH TO DATE. Blood Culture - Preliminary Resulted 03/16/18 0848 Blood NO GROWTH TO DATE. Last 24 Hours Test 03/17/18 16:31 03/17/18 20:59 03/18/18 06:58 03/18/18 09:03 Bedside Glucose 239 mg/dl 228 mg/dl 247 mg/dl White Blood Count 16.26 K/uL Red Blood Count 3.07 M/uL Hemoglobin 9.0 g/dL Hematocrit 26.8 % Mean Corpuscular Volume 87.3 fL Mean Corpuscular Hemoglobin 29.3 pg Mean Corpuscular Hemoglobin Concent 33.6 g/dl RDW Standard Deviation 43.3 fL RDW Coefficient of Variation 13.6 % Platelet Count 334 K/uL Mean Platelet Volume 8.3 fL Sodium Level 137 mmol/L Potassium Level 4.4 mmol/L Chloride Level 103 mmol/L Carbon Dioxide Level 27 mmol/L Anion Gap 7.0 mmol/L Blood Urea Nitrogen 13 mg/dl Creatinine 0.90 mg/dl Est Creatinine Clear Calc Drug Dose 81.1 ml/min Estimated GFR () 80.0 Estimated GFR (Non- 69.0 BUN/Creatinine Ratio 14.6 Random Glucose 170 mg/dl Calcium Level 8.4 mg/dl Test 03/18/18 11:55 03/18/18 13:11 03/18/18 14:45 Bedside Glucose 335 mg/dl 342 mg/dl Vancomycin Level Trough 18.5 mcg/ml Assessment and Plan (1) Gram positive septicemia Assessment & Plan: will continue vanco for now, spoke with micro will obtain sensitivities on AIRPLANE NAVIGATOR from OR and make final recs based on final culture. will need picc line. repeat blood cultures negative to date. Continued [facility] stay due to: multiple IV medications needed Discharge planning: home with home health
[2018-03-18] MEDS ORDERED: NovoLIN-R INSULIN PER UNIT CHARGE SC ONE (15:40)
--- NOTE | 2018-03-18 18:23 | Family Medicine Progress Note ---
Progress Note Date of Service Mar 18, 2018. Subjective Pt evaluation today including: conversation w/ patient, physical exam, chart review, lab review Voiding: no voiding problems pt feeling less weak overall this morning improved back pain unlike back pain prior to I&D - just local soreness No BM since the otherwise asymptomatic Additional Comments: all other ROS negative except for as above Medications Current Inpatient Medications Medications (Trade) Dose Ordered Sig/Jovanni Route Start Time Stop Time Status Last Admin Dose Admin Aspirin (Ecotrin Tab) 81 mg QAM PO 03/14/18 09:00 04/13/18 08:59 03/18/18 09:00 81 MG Atorvastatin Calcium (Lipitor Tab) 40 mg HS PO 03/14/18 21:00 04/13/18 20:59 03/17/18 21:15 40 MG Duloxetine HCl (Cymbalta Cap) 60 mg QAM PO 03/14/18 09:00 04/13/18 08:59 03/18/18 09:00 60 MG Magnesium Oxide (Mag-Ox Tab) 400 mg BID PO 03/14/18 09:00 04/13/18 08:59 03/18/18 08:57 400 MG Tramadol HCl (Ultram Tab) 100 mg Q4H PRN PO 03/13/18 22:00 04/12/18 21:59 Verapamil HCl (Calan-Sr Tab) 240 mg QAM PO 03/14/18 09:00 04/13/18 08:59 03/18/18 09:00 240 MG Pantoprazole Sodium (Protonix Tab) 40 mg QAM PO 03/14/18 09:00 04/13/18 08:59 03/18/18 08:59 40 MG Tizanidine HCl (Zanaflex Tab) 4 mg HS PO 03/13/18 22:30 04/12/18 22:29 03/17/18 21:15 4 MG Ferrous Sulfate (Feosol Tab) 325 mg BIDM PO 03/14/18 07:30 04/13/18 07:29 03/18/18 17:44 325 MG Vancomycin HCl (Consult) 1 ea UD PRN N/A 03/13/18 22:00 04/12/18 21:59 Acetaminophen (Tylenol Tab) 650 mg Q4H PRN PO 03/13/18 22:00 04/12/18 21:59 03/16/18 07:57 650 MG Vancomycin HCl 1500 mg/Sodium Chloride 530 ml @ 200 mls/hr Q16H IV 03/14/18 14:00 03/28/18 13:59 03/18/18 14:39 200 MLS/HR Insulin Aspart (novoLOG ASPART) SLIDING SCALE G... ACHS SC 03/14/18 17:00 04/13/18 16:59 03/18/18 17:50 15 UNITS Polyethylene (Miralax Powder Packet) 17 gm DAILY PO 03/15/18 09:00 04/12/18 21:59 Future Hold 03/18/18 08:58 17 GM Docusate Sodium (coLACE CAP) 100 mg BID PO 03/14/18 21:00 04/13/18 20:59 03/18/18 08:58 100 MG Hydroxyzine HCl (Vistaril Tab) 25 mg HS PO 03/15/18 21:00 04/14/18 20:59 03/17/18 21:15 25 MG Ketorolac Tromethamine (Toradol Inj) 15 mg Q6H PRN IV 03/15/18 11:15 03/20/18 11:14 03/17/18 08:17 15 MG Prednisone (PredniSONE TAB) 11 mg QAM PO 03/17/18 09:00 04/16/18 08:59 03/18/18 08:59 11 MG Promethazine HCl 12.5 mg/Sodium Chloride 50.5 ml @ 202 mls/hr Q6H PRN IV 03/17/18 12:15 04/16/18 12:14 Ondansetron HCl (Zofran Inj) 4 mg Q6H PRN IV 03/17/18 12:15 04/16/18 12:14 Metoclopramide HCl (Reglan Inj) 10 mg Q6H PRN IV 03/17/18 12:15 04/16/18 12:14 Lorazepam (Ativan Tab) 0.5 mg Q8H PRN PO 03/17/18 12:15 04/16/18 12:14 Lorazepam 0.5 mg/ Syringe 0.25 ml @ 1 mls/min Q8H PRN IV 03/17/18 12:15 04/16/18 12:14 Pneumococcal Polysaccharide Vaccine 1 ea PRN PRN N/A 03/17/18 12:15 04/16/18 12:14 Influenza Virus Vacc Triv Types A&B 1 ea PRN PRN N/A 03/17/18 12:15 04/16/18 12:14 Polyethylene (Miralax Powder Packet) 17 gm Q6 PO 03/19/18 06:00 04/18/18 05:59 Bisacodyl (Dulcolax Supp) 10 mg DAILY PRN [place] 03/17/18 12:15 04/16/18 12:14 Magnesium Hydroxide (Milk Of Magnesia Susp) 30 ml DAILY PRN PO 03/17/18 12:15 04/16/18 12:14 Hydromorphone HCl (Dilaudid Inj) 0.5-1mg prn moder... Q3H PRN IV 03/18/18 06:00 04/01/18 05:59 Acetaminophen (Tylenol Tab) 1,000 mg Q8H PRN PO 03/17/18 12:15 04/16/18 12:14 03/17/18 21:18 1,000 MG Acetaminophen 100 ml @ 400 mls/hr Q8H PRN IV 03/17/18 12:15 04/16/18 12:14 Naloxone HCl (Narcan Inj) 0.1 mg Q5M PRN IV 03/17/18 12:15 04/16/18 12:14 Senna/Docusate Sodium (Senokot S Tab) 2 tab HS PO 03/17/18 21:00 04/16/18 20:59 03/17/18 21:15 2 TAB Sodium Biphosphate/ Sodium Phosphate (Fleet Enema) 132 ml ONE PRN [place] 03/17/18 12:15 04/16/18 12:14 Hydroxyzine HCl (Vistaril Tab) 25 mg Q8H PRN PO 03/17/18 12:15 04/16/18 12:14 Al Hydroxide/Mg Hydroxide (Maalox Susp) 30 ml Q6H PRN PO 03/17/18 12:15 04/16/18 12:14 Famotidine (Pepcid Tab) 20 mg Q12 PRN PO 03/17/18 12:15 04/16/18 12:14 Diphenhydramine HCl (Benadryl Cap) 25 mg Q6H PRN PO 03/17/18 12:15 04/16/18 12:14 Oxycodone HCl (Roxicodone Immediate Rel Tab) 5-10mg prn moderate to sev... Q4H PRN PO 03/17/18 18:45 03/31/18 18:44 03/17/18 22:47 10 MG Insulin Glargine (Lantus Solostar Pen) 45 units BID SC 03/18/18 21:00 04/12/18 22:29 Objective Vital Signs Date Time Temp Pulse Resp B/P (MAP) Pulse Ox O2 Delivery O2 Flow Rate FiO2 03/18/18 15:03 Room Air 03/18/18 14:55 36.6 78 19 107/66 (80) 94 Room Air 03/18/18 11:46 36.8 84 16 167/78 (107) 96 Room Air 03/18/18 08:08 96 Room Air 03/18/18 08:00 Room Air 03/18/18 07:39 36.5 76 14 135/69 (91) 96 Room Air 03/18/18 03:09 36.4 72 18 133/71 (91) 95 Room Air 03/17/18 23:49 Room Air 03/17/18 23:06 37.1 81 16 133/74 (93) 92 Room Air 03/17/18 21:30 37.2 86 18 154/80 (104) 95 Room Air 03/17/18 20:33 37.6 96 17 185/83 (117) 95 Room Air 03/17/18 20:30 Room Air 03/17/18 20:21 Room Air Physical Exam General Appearance: no apparent distress Eyes: normal inspection, EOMI ENT: hearing grossly normal Respiratory/Chest: lungs clear, normal breath sounds, no respiratory distress Cardiovascular: regular rate, rhythm, no murmur Abdomen: normal bowel sounds, non tender, soft Extremities: non-tender, no pedal edema Neurologic/Psychiatric: alert, oriented x 3 Skin: + pertinent finding (back I&D/surgical site dressing C/D/I; mildly TTP) Laboratory Results 03/18/18 06:58 03/18/18 06:58 Test 03/18/18 06:58 03/18/18 13:11 03/18/18 17:05 Red Blood Count 3.07 M/uL (4.2-5.4) Mean Corpuscular Volume 87.3 fL (80-100) Mean Corpuscular Hemoglobin 29.3 pg (25-34) Mean Corpuscular Hemoglobin Concent 33.6 g/dl (32-36) RDW Standard Deviation 43.3 fL (36.4-46.3) RDW Coefficient of Variation 13.6 % (11.5-14.5) Mean Platelet Volume 8.3 fL (7.4-10.4) Anion Gap 7.0 mmol/L (3-11) Est Creatinine Clear Calc Drug Dose 81.1 ml/min Estimated GFR () 80.0 Estimated GFR (Non- 69.0 BUN/Creatinine Ratio 14.6 (10-20) Calcium Level 8.4 mg/dl (8.5-10.1) Vancomycin Level Trough 18.5 mcg/ml (SEE COMMENT) Bedside Glucose 237 mg/dl (70-90) Assessment and Plan 62 y/oF with hx of DM I, HTN, HLD, PMR, and lumbar stenosis s/p surgery for L4- 5 decompression and fusion on 03/07 and discharged on 03/09. Admitted for severe lower back pain radiating to R buttocks region (similar to pain prior to surgery) and SOB in the setting of a positive blood culture (gram+ cocci) and fever at outside ED on 03/12 concerning for bacteremia. No neurologic deficits noted. A positive blood culture here as well (coag neg staph) with repeat negative blood culture. Had seroma drained and cultured which also grew coag neg staph. NOW on vancomycin pending culture sensitivities and order in for PICC per ID request for potential halfway antibiotics. Stable for discharge from an ortho standpoint. Fever and (+) blood cultures in view of recent lumbar fusion on 03/07 - Vitals stable, mild leukocytosis likely 2/2 prednisone vs. possible infection - Outside ED BCx - one grew G+ cocci, other neg. Repeat BCx from 03/14 similarly grew G+ cocci (coag neg staph), other neg. - Repeat blood cultures drawn 03/16 - NGTD - Echo 03/16 did not show vegetations - Had I&D with seroma drainage and culture - also growing coag neg staph ( sensitivities pending) - per ID obtain PICC and await sensitivities - Continue empiric antibiotic coverage with vancomycin pending culture sensitivities - Trend CBC and trace cultures Back pain + sciatic symptoms - improved post I&D today with seroma drainage - Continue pain management regimen - ice pack, oxycodone, Toradol (day 4/5), duloxetine and tizanidine. Patient has tramadol and Dilaudid ordered, but has not been taking these. - PT/OT - possible inpatient rehab if unable to achieve goals here otherwise HH per ortho Hyperventilation 2/2 anxiety (has history of this) vs. pain - anxiety improved, no further hyperventilation episodes - Continue hydroxyzine at nights. Lorazepam discontinued. - Continue home dose duloxetine - If ongoing dyspnea/SOB, will consider CT to r/o PE in view of recent surgery and decreased mobilization - although recent venous Doppler of bilateral LEs negative Constipation - Continue scheduled bowel regimen with docusate and Miralax Poor sleep possibly 2/2 sleep apnea - patient states she has had sleep study performed recently, but is unsure of results yet. Nocturnal pulse ox study showed small amount of time <88% sats - CPAP ordered for when sleeping DM - poorly controlled today sugars in 200s-300s range thus tightened control - Continue Lantus 45 units BID (home dose) + ISS (range 120-160, CF 15, and carb coverage of 1:5) + BSG ac/hs; also received 8 units of regular insulin today PMR - Recently placed on Tocilizumab - received a dose 2 weeks prior (likely ill- timed and additional dosing should be withheld pending full recovery) - Continue chronic prednisone 11mg QAM + pantoprazole GI ppx CAD/ HTN/ HLD - Continue aspirin 81mg QAM, verapamil 240mg, atorvastatin 40mg HS VTE ppx - SCDs FULL CODE Dispo: pending culture sensitives, and picc Resident Physician Supervision Note: I interviewed and examined the patient. Discussed with Dr. Snell and agree with findings and plan as documented in the note. Any exceptions or clarifications are listed here: None Documented By: Reid Stout feeling better pain better vitals noted nad breathing unlabored no pallor or icterus back pain /hematoma / (+) blood cutlure and concern on spinal infection - ongoing vanco per ID. continue current care otherwise Resident Involvement: Resident Care Provided Care Provided: [facility]
[2018-03-18] MEDS: DOCUSATE SODIUM/SENNA 50/8.6MG TAB PO SCH (21:15)
[2018-03-18] MEDS: ATORVASTATIN 40 MG TAB PO SCH (21:15)
[2018-03-18] MEDS: SACCHAROMYCES BOUL (FLORASTOR) 250 MG CAP PO SCH (21:21)
[2018-03-18] MEDS: hydrOXYzine HCL 25 MG TAB PO SCH (21:29)
[2018-03-19] MEDS: VANCOMYCIN IV 1,500 MG in SODIUM CHLORIDE 0.9% 500ML 500 ML IV SCH ×2 (05:23→21:37)
[2018-03-19] MEDS: POLYETHYLENE (MIRALAX) 17 GM PACK PO SCH ×4 (05:24→23:35)
[2018-03-19 06:20] LABS: HEMATOCRIT 26.9 % (37-47); HEMOGLOBIN 8.7 g/dL (12.0-16.0); MEAN CELL VOLUME 88.2 fL (80-100); MEAN CORPUSCULAR HEMOGLOBIN 28.5 pg (25-34); MEAN CORPUSCULAR HGB CONC 32.3 g/dl (32-36); MEAN PLATELET VOLUME 8.1 fL (7.4-10.4); PLATELET COUNT 442 K/uL (130-400); RED CELL DISTRIBUTION WIDTH CV 13.8 % (11.5-14.5); RED CELL DISTRIBUTION WIDTH SD 44.3 fL (36.4-46.3)
[2018-03-19 06:59] LABS: CALCIUM 8.5 mg/dl (8.5-10.1); POTASSIUM 4.3 mmol/L (3.5-5.1)
[2018-03-19 07:00] LABS: BASO % 0.1 %; BASO ABS # 0.02 K/uL (0-0.2); EOS % 0.7 %; EOS ABS # 0.12 K/uL (0-0.5); IG# 0.15 K/uL (0.00-0.02); LYMPH ABS # 3.38 K/uL (1.2-3.4); MONO % 6.6 %; MONO ABS # 1.07 K/uL (0.11-0.59); NEUT % 70.7 %; NEUT ABS # 11.36 K/uL (1.4-6.5)
[2018-03-19 07:53] VITALS: BP 142/82; PULSE 77; TEMP 36.7; O2SAT 94
[2018-03-19] MEDS: INSULIN GLARGINE SOLOSTAR 100 UNITS/ML 3 ML PEN SC SCH ×2 (08:20→21:24)
[2018-03-19] MEDS: CARBOHYDRATES FOR HYPOGLYCEMIA PO PRN (08:20)
[2018-03-19 08:28] VITALS: O2SAT 94
[2018-03-19] MEDS ORDERED: GLUCOSE 40% GEL 15 GM TUBE PO PRN (08:30)
[2018-03-19] MEDS ORDERED: DEXTROSE 50% 50 ML SYR IV PRN (08:30)
[2018-03-19] MEDS ORDERED: GLUCOSE 10 TABS/TUBE PO PRN (08:30)
[2018-03-19] MEDS ORDERED: GLUCAGON FOR INJ 1 MG VIAL IM PRN (08:30)
[2018-03-19] MEDS: FERROUS SULFATE 325 MG TAB PO SCH ×2 (08:38→17:51)
[2018-03-19] MEDS: DULOXETINE HCL 60 MG CAP PO SCH (08:39)
[2018-03-19] MEDS: VERAPAMIL HCL 240 MG TABCR PO SCH (08:39)
[2018-03-19] MEDS: DOCUSATE SODIUM 100 MG CAP PO SCH ×2 (08:39→21:16)
[2018-03-19] MEDS: MAGNESIUM OXIDE 400 MG TAB PO SCH ×2 (08:40→21:17)
[2018-03-19] MEDS: SACCHAROMYCES BOUL (FLORASTOR) 250 MG CAP PO SCH (08:40)
[2018-03-19] MEDS: ASPIRIN 81 MG ECTAB PO SCH (08:40)
[2018-03-19] MEDS: PANTOprazole SOD 40 MG TAB PO SCH (08:41)
[2018-03-19] MEDS: PREDNISONE PO SCH ×2 (08:41)
[2018-03-19] MEDS: OXYCODONE HCL IR 5 MG TAB (IMMEDIATE RELEASE) PO PRN ×4 (08:44→21:46)
[2018-03-19] MEDS: INSULIN ASPART 100 UNITS/ML 3 ML PEN SC SCH ×4 (09:16→21:25)
[2018-03-19 11:40] VITALS: BP 128/73; PULSE 77; TEMP 36.8; O2SAT 92
[2018-03-19 11:46] VITALS: Ht 160 cm; Wt 117.1 kg
--- NOTE | 2018-03-19 15:13 | Progress Note ---
Subjective Date of Service: Mar 19, 2018. Subjective pt OR culture with police crime scene technician, initial blood culture police crime scene technician, no sensitivity done. repeat blood cultures negative. continues with vanco, tolerating well. afebrile. Objective Vital Signs Date Time Temp Pulse Resp B/P (MAP) Pulse Ox O2 Delivery O2 Flow Rate FiO2 03/19/18 11:40 36.8 77 14 128/73 (91) 92 Room Air 03/19/18 08:28 94 Room Air 03/19/18 08:00 Room Air 03/19/18 07:53 36.7 77 12 142/82 (102) 94 Room Air 03/19/18 00:15 CPAP 03/18/18 23:11 36.5 71 16 125/72 (89) 93 CPAP 03/18/18 22:28 74 98 21 03/18/18 22:00 36.9 Laboratory Results Item Value Date Time Gram Stain - Final Resulted 03/17/18 1146 Abscess Lumbar Blood Culture - Preliminary Resulted 03/14/18 1259 Blood Coag Neg Staph Not Lugdunensis Blood Culture - Preliminary Resulted 03/16/18 0904 Blood NO GROWTH TO DATE. Blood Culture - Preliminary Resulted 03/16/18 0848 Blood NO GROWTH TO DATE. Last 24 Hours Test 03/18/18 17:05 03/18/18 20:25 03/19/18 05:44 03/19/18 08:07 Bedside Glucose 237 mg/dl 84 mg/dl 69 mg/dl White Blood Count 16.10 K/uL Red Blood Count 3.05 M/uL Hemoglobin 8.7 g/dL Hematocrit 26.9 % Mean Corpuscular Volume 88.2 fL Mean Corpuscular Hemoglobin 28.5 pg Mean Corpuscular Hemoglobin Concent 32.3 g/dl Platelet Count 442 K/uL Mean Platelet Volume 8.1 fL Neutrophils (%) (Auto) 70.7 % Lymphocytes (%) (Auto) 21.0 % Monocytes (%) (Auto) 6.6 % Eosinophils (%) (Auto) 0.7 % Basophils (%) (Auto) 0.1 % Neutrophils # (Auto) 11.36 K/uL Lymphocytes # (Auto) 3.38 K/uL Monocytes # (Auto) 1.07 K/uL Eosinophils # (Auto) 0.12 K/uL Basophils # (Auto) 0.02 K/uL RDW Standard Deviation 44.3 fL RDW Coefficient of Variation 13.8 % Immature Granulocyte % (Auto) 0.9 % Immature Granulocyte # (Auto) 0.15 K/uL Red Blood Cell Morphology Unremarkable Erythrocyte Sedimentation Rate 25 mm/hr Sodium Level 137 mmol/L Potassium Level 4.3 mmol/L Chloride Level 102 mmol/L Carbon Dioxide Level 28 mmol/L Anion Gap 7.0 mmol/L Blood Urea Nitrogen 18 mg/dl Creatinine 1.00 mg/dl Est Creatinine Clear Calc Drug Dose 73.0 ml/min Estimated GFR () 70.4 Estimated GFR (Non- 60.8 BUN/Creatinine Ratio 17.8 Random Glucose 60 mg/dl Calcium Level 8.5 mg/dl C-Reactive Protein 1.97 mg/dl Test 03/19/18 08:09 03/19/18 08:29 03/19/18 12:22 Bedside Glucose 66 mg/dl 77 mg/dl 115 mg/dl Assessment and Plan (1) Gram positive septicemia Assessment & Plan: will continue vanco for now, spoke with micro will obtain sensitivities on BERRY PICKER from OR and make final recs based on final culture. will need picc line. repeat blood cultures negative to date. Continued [facility] stay due to: multiple IV medications needed Discharge planning: home with home health
--- NOTE | 2018-03-19 15:30 | Progress Note ---
Progress Note Date of Service Mar 19, 2018. Progress Note Patient's back and leg pain are markedly improved. She had a PICC line placed earlier today. Vital signs stable. On exam she is in a chair at bedside is good strength testing peers comfortable. Assessment status post I&D lumbar spine per plan at this time the YONI drain is decreasing appropriately. We will await final antibiotic recommendations from infectious disease and hopefully discharge home tomorrow.
[2018-03-19 15:54] VITALS: BP 145/78; PULSE 66; TEMP 36.9; O2SAT 95
--- NOTE | 2018-03-19 18:21 | Family Medicine Progress Note ---
Progress Note Date of Service Mar 19, 2018. Subjective Pt evaluation today including: conversation w/ patient, physical exam, chart review, lab review PO Intake: tolerating Voiding: no voiding problems this AM pt reported just back soreness at surgical site and muscle stiffness otherwise asymptomatic no BM walked in hallway Respiratory: + see HPI Additional Comments: all other ROS negative except for as above Medications Current Inpatient Medications Medications (Trade) Dose Ordered Sig/Jovanni Route Start Time Stop Time Status Last Admin Dose Admin Aspirin (Ecotrin Tab) 81 mg QAM PO 03/14/18 09:00 04/13/18 08:59 03/19/18 08:40 81 MG Atorvastatin Calcium (Lipitor Tab) 40 mg HS PO 03/14/18 21:00 04/13/18 20:59 03/18/18 21:15 40 MG Duloxetine HCl (Cymbalta Cap) 60 mg QAM PO 03/14/18 09:00 04/13/18 08:59 03/19/18 08:39 60 MG Magnesium Oxide (Mag-Ox Tab) 400 mg BID PO 03/14/18 09:00 04/13/18 08:59 03/19/18 08:40 400 MG Tramadol HCl (Ultram Tab) 100 mg Q4H PRN PO 03/13/18 22:00 04/12/18 21:59 Verapamil HCl (Calan-Sr Tab) 240 mg QAM PO 03/14/18 09:00 04/13/18 08:59 03/19/18 08:39 240 MG Pantoprazole Sodium (Protonix Tab) 40 mg QAM PO 03/14/18 09:00 04/13/18 08:59 03/19/18 08:41 40 MG Tizanidine HCl (Zanaflex Tab) 4 mg HS PO 03/13/18 22:30 04/12/18 22:29 03/18/18 21:16 4 MG Ferrous Sulfate (Feosol Tab) 325 mg BIDM PO 03/14/18 07:30 04/13/18 07:29 03/19/18 17:51 325 MG Vancomycin HCl (Consult) 1 ea UD PRN N/A 03/13/18 22:00 04/12/18 21:59 Acetaminophen (Tylenol Tab) 650 mg Q4H PRN PO 03/13/18 22:00 04/12/18 21:59 03/16/18 07:57 650 MG Vancomycin HCl 1500 mg/Sodium Chloride 530 ml @ 200 mls/hr Q16H IV 03/14/18 14:00 03/28/18 13:59 03/19/18 05:23 200 MLS/HR Insulin Aspart (novoLOG ASPART) SLIDING SCALE G... ACHS SC 03/14/18 17:00 04/13/18 16:59 03/19/18 17:48 15 UNITS Polyethylene (Miralax Powder Packet) 17 gm DAILY PO 03/15/18 09:00 04/12/18 21:59 Future Hold 03/18/18 08:58 17 GM Docusate Sodium (coLACE CAP) 100 mg BID PO 03/14/18 21:00 04/13/18 20:59 03/19/18 08:39 100 MG Hydroxyzine HCl (Vistaril Tab) 25 mg HS PO 03/15/18 21:00 04/14/18 20:59 03/18/18 21:29 25 MG Ketorolac Tromethamine (Toradol Inj) 15 mg Q6H PRN IV 03/15/18 11:15 03/20/18 11:14 03/17/18 08:17 15 MG Prednisone (PredniSONE TAB) 11 mg QAM PO 03/17/18 09:00 04/16/18 08:59 03/19/18 08:41 11 MG Promethazine HCl 12.5 mg/Sodium Chloride 50.5 ml @ 202 mls/hr Q6H PRN IV 03/17/18 12:15 04/16/18 12:14 Ondansetron HCl (Zofran Inj) 4 mg Q6H PRN IV 03/17/18 12:15 04/16/18 12:14 Metoclopramide HCl (Reglan Inj) 10 mg Q6H PRN IV 03/17/18 12:15 04/16/18 12:14 Lorazepam (Ativan Tab) 0.5 mg Q8H PRN PO 03/17/18 12:15 04/16/18 12:14 Lorazepam 0.5 mg/ Syringe 0.25 ml @ 1 mls/min Q8H PRN IV 03/17/18 12:15 04/16/18 12:14 Pneumococcal Polysaccharide Vaccine 1 ea PRN PRN N/A 03/17/18 12:15 04/16/18 12:14 Influenza Virus Vacc Triv Types A&B 1 ea PRN PRN N/A 03/17/18 12:15 04/16/18 12:14 Polyethylene (Miralax Powder Packet) 17 gm Q6 PO 03/19/18 06:00 04/18/18 05:59 03/19/18 17:51 17 GM Bisacodyl (Dulcolax Supp) 10 mg DAILY PRN [place] 03/17/18 12:15 04/16/18 12:14 Magnesium Hydroxide (Milk Of Magnesia Susp) 30 ml DAILY PRN PO 03/17/18 12:15 04/16/18 12:14 Hydromorphone HCl (Dilaudid Inj) 0.5-1mg prn moder... Q3H PRN IV 03/18/18 06:00 04/01/18 05:59 Acetaminophen (Tylenol Tab) 1,000 mg Q8H PRN PO 03/17/18 12:15 04/16/18 12:14 03/17/18 21:18 1,000 MG Acetaminophen 100 ml @ 400 mls/hr Q8H PRN IV 03/17/18 12:15 04/16/18 12:14 Naloxone HCl (Narcan Inj) 0.1 mg Q5M PRN IV 03/17/18 12:15 04/16/18 12:14 Senna/Docusate Sodium (Senokot S Tab) 2 tab HS PO 03/17/18 21:00 04/16/18 20:59 03/18/18 21:15 2 TAB Sodium Biphosphate/ Sodium Phosphate (Fleet Enema) 132 ml ONE PRN [place] 03/17/18 12:15 04/16/18 12:14 Hydroxyzine HCl (Vistaril Tab) 25 mg Q8H PRN PO 03/17/18 12:15 04/16/18 12:14 Al Hydroxide/Mg Hydroxide (Maalox Susp) 30 ml Q6H PRN PO 03/17/18 12:15 04/16/18 12:14 Famotidine (Pepcid Tab) 20 mg Q12 PRN PO 03/17/18 12:15 04/16/18 12:14 Diphenhydramine HCl (Benadryl Cap) 25 mg Q6H PRN PO 03/17/18 12:15 04/16/18 12:14 03/18/18 21:14 25 MG Oxycodone HCl (Roxicodone Immediate Rel Tab) 5-10mg prn moderate to sev... Q4H PRN PO 03/17/18 18:45 03/31/18 18:44 03/19/18 15:59 10 MG Insulin Glargine (Lantus Solostar Pen) 45 units BID SC 03/18/18 21:00 04/12/18 22:29 Saccharomyces Boulardii (Florastor Cap) 250 mg DAILY PO 03/18/18 21:00 04/17/18 20:59 03/19/18 08:40 250 MG Glucose (Glucose 40% Gel) 15-30 GRAMS 15 GRAMS... UD PRN PO 03/19/18 08:30 04/18/18 08:29 Glucose (Glucose Chew Tab) 4-8 Tablets 4 Tabl... UD PRN PO 03/19/18 08:30 04/18/18 08:29 Dextrose (Dextrose 50% 50ML Syringe) 25-50ML 25ML FOR ... UD PRN IV 03/19/18 08:30 04/18/18 08:29 Glucagon (Glucagon Inj) 1 mg UD PRN IM 03/19/18 08:30 04/18/18 08:29 Carbohydrates (Carbohydrates For Hypoglycemia) 15-30 GRAMS 15 grams if BSG 54-69... UD PRN PO 03/19/18 08:30 04/18/18 08:29 03/19/18 08:20 15 GM Objective Vital Signs Date Time Temp Pulse Resp B/P (MAP) Pulse Ox O2 Delivery O2 Flow Rate FiO2 03/19/18 15:54 36.9 66 17 145/78 (100) 95 Room Air 03/19/18 15:15 Room Air 03/19/18 11:40 36.8 77 14 128/73 (91) 92 Room Air 03/19/18 08:28 94 Room Air 03/19/18 08:00 Room Air 03/19/18 07:53 36.7 77 12 142/82 (102) 94 Room Air 03/19/18 00:15 CPAP 03/18/18 23:11 36.5 71 16 125/72 (89) 93 CPAP 03/18/18 22:28 74 98 21 03/18/18 22:00 36.9 Physical Exam General Appearance: no apparent distress Eyes: normal inspection, EOMI Respiratory/Chest: lungs clear, normal breath sounds Cardiovascular: regular rate, rhythm, no murmur Abdomen: normal bowel sounds, non tender, soft Extremities: non-tender, + swelling (1+ b/l LE) Neurologic/Psychiatric: alert, oriented x 3 Skin: normal color, warm/dry, + pertinent finding (lumbar spine wound dressing C/D/I - YONI drain with 50mls serosanguinous output) Laboratory Results 03/19/18 05:44 Red Blood Count 3.05, Mean Corpuscular Volume 88.2, Mean Corpuscular Hemoglobin 28.5, Mean Corpuscular Hemoglobin Concent 32.3, Mean Platelet Volume 8.1, Neutrophils (%) (Auto) 70.7, Lymphocytes (%) (Auto) 21.0, Monocytes (%) (Auto) 6.6, Eosinophils (%) (Auto) 0.7, Basophils (%) (Auto) 0.1, Neutrophils # (Auto) 11.36, Lymphocytes # (Auto) 3.38, Monocytes # (Auto) 1.07, Eosinophils # (Auto) 0.12, Basophils # (Auto) 0.02 03/19/18 05:44 Test 03/19/18 05:44 03/19/18 17:24 White Blood Count 16.10 K/uL (4.8-10.8) Red Blood Count 3.05 M/uL (4.2-5.4) Hemoglobin 8.7 g/dL (12.0-16.0) Hematocrit 26.9 % (37-47) Mean Corpuscular Volume 88.2 fL (80-100) Mean Corpuscular Hemoglobin 28.5 pg (25-34) Mean Corpuscular Hemoglobin Concent 32.3 g/dl (32-36) Platelet Count 442 K/uL (130-400) Mean Platelet Volume 8.1 fL (7.4-10.4) Neutrophils (%) (Auto) 70.7 % Lymphocytes (%) (Auto) 21.0 % Monocytes (%) (Auto) 6.6 % Eosinophils (%) (Auto) 0.7 % Basophils (%) (Auto) 0.1 % Neutrophils # (Auto) 11.36 K/uL (1.4-6.5) Lymphocytes # (Auto) 3.38 K/uL (1.2-3.4) Monocytes # (Auto) 1.07 K/uL (0.11-0.59) Eosinophils # (Auto) 0.12 K/uL (0-0.5) Basophils # (Auto) 0.02 K/uL (0-0.2) RDW Standard Deviation 44.3 fL (36.4-46.3) RDW Coefficient of Variation 13.8 % (11.5-14.5) Immature Granulocyte % (Auto) 0.9 % Immature Granulocyte # (Auto) 0.15 K/uL (0.00-0.02) Red Blood Cell Morphology Unremarkable Erythrocyte Sedimentation Rate 25 mm/hr (0-21) Anion Gap 7.0 mmol/L (3-11) Est Creatinine Clear Calc Drug Dose 73.0 ml/min Estimated GFR () 70.4 Estimated GFR (Non- 60.8 BUN/Creatinine Ratio 17.8 (10-20) Calcium Level 8.5 mg/dl (8.5-10.1) C-Reactive Protein 1.97 mg/dl (0-0.29) Bedside Glucose 180 mg/dl (70-90) Assessment and Plan 62 y/oF with hx of DM I, HTN, HLD, PMR, and lumbar stenosis s/p surgery for L4- 5 decompression and fusion on 03/07 and discharged on 03/09. Admitted for severe lower back pain radiating to R buttocks region (similar to pain prior to surgery) and SOB in the setting of a positive blood culture (gram+ cocci) and fever at outside ED on 03/12 concerning for bacteremia. No neurologic deficits noted. A positive blood culture here as well (coag neg staph) with repeat negative blood culture. Had seroma drained and cultured which also grew coag neg staph. NOW on vancomycin pending culture sensitivities for potential discharge with nursing home antibiotics. Received PICC today. Stable for discharge from an ortho standpoint. Fever and (+) blood cultures in view of recent lumbar fusion on 03/07 - Vitals stable, mild leukocytosis likely 2/2 prednisone vs. possible infection - Outside ED BCx - one grew G+ cocci, other neg. Repeat BCx from 03/14 similarly grew G+ cocci (coag neg staph), other neg. - Repeat blood cultures drawn 03/16 - NGTD - Echo 03/16 did not show vegetations - Had I&D with seroma drainage and culture - also growing coag neg staph ( sensitivities pending) - per ID await sensitivities; picc obtained - Continue empiric antibiotic coverage with vancomycin pending culture sensitivities - Trend CBC and trace cultures Back pain + sciatic symptoms - improved post I&D with seroma drainage - Continue pain management regimen - ice pack, oxycodone, Toradol (day 55), duloxetine and tizanidine. Patient has tramadol and Dilaudid ordered, but has not been taking these. - PT/OT - possible inpatient rehab if unable to achieve goals here otherwise HH per ortho Hyperventilation 2/2 anxiety (has history of this) vs. pain - anxiety improved, no further hyperventilation episodes - Continue hydroxyzine at nights. Lorazepam discontinued. - Continue home dose duloxetine - If ongoing dyspnea/SOB, will consider CT to r/o PE in view of recent surgery and decreased mobilization - although recent venous Doppler of bilateral LEs negative Constipation - Continue scheduled bowel regimen with docusate and Miralax Poor sleep possibly 2/2 sleep apnea - patient states she has had sleep study performed recently, but is unsure of results yet. Nocturnal pulse ox study showed small amount of time <88% sats - CPAP ordered for when sleeping DM - poorly controlled today sugars in 200s-300s range thus tightened control - Continue Lantus 45 units BID (home dose) + ISS (range 120-160, CF 20, and carb coverage of 1:5) + BSG ac/hs PMR - Recently placed on Tocilizumab - received a dose 2 weeks prior (likely ill- timed and additional dosing should be withheld pending full recovery) - Continue chronic prednisone 11mg QAM + pantoprazole GI ppx CAD/ HTN/ HLD - Continue aspirin 81mg QAM, verapamil 240mg, atorvastatin 40mg HS VTE ppx - SCDs FULL CODE Dispo: pending culture sensitives Resident Physician Supervision Note: I interviewed and examined the patient. Discussed with Dr. Snell and agree with findings and plan as documented in the note. Any exceptions or clarifications are listed here: None Documented By: Reid Stout feeling ok. awaiting final cultures vitals noted nad breathing unlabored no pallor or icterus back pain /hematoma / (+) blood culture and concern on spinal infection - ongoing abx per ID. continue current care otherwise. anticipate home once abx set up Resident Involvement: Resident Care Provided Care Provided: [facility]
[2018-03-19] MEDS: ATORVASTATIN 40 MG TAB PO SCH (21:16)
[2018-03-19] MEDS: DOCUSATE SODIUM/SENNA 50/8.6MG TAB PO SCH (21:17)
[2018-03-19] MEDS: hydrOXYzine HCL 25 MG TAB PO SCH (21:21)
[2018-03-19 22:57] VITALS: BP 152/65; PULSE 73; TEMP 36.9; O2SAT 93
[2018-03-19 23:57] VITALS: PULSE 73; O2SAT 96
[2018-03-20 02:17] VITALS: PULSE 71; O2SAT 97
[2018-03-20] MEDS: POLYETHYLENE (MIRALAX) 17 GM PACK PO SCH (06:00)
[2018-03-20 06:27] LABS: BASO % 0.6 %; BASO ABS # 0.06 K/uL (0-0.2); EOS % 1.2 %; EOS ABS # 0.13 K/uL (0-0.5); HEMOGLOBIN 8.1 g/dL (12.0-16.0); IG# 0.13 K/uL (0.00-0.02); LYMPH ABS # 3.18 K/uL (1.2-3.4); MEAN CELL VOLUME 88.7 fL (80-100); MEAN CORPUSCULAR HEMOGLOBIN 28.7 pg (25-34); MEAN CORPUSCULAR HGB CONC 32.4 g/dl (32-36); MEAN PLATELET VOLUME 7.9 fL (7.4-10.4); MONO % 9.5 %; MONO ABS # 1.01 K/uL (0.11-0.59); NEUT % 57.5 %; NEUT ABS # 6.09 K/uL (1.4-6.5); PLATELET COUNT 403 K/uL (130-400); RED CELL DISTRIBUTION WIDTH CV 13.6 % (11.5-14.5); RED CELL DISTRIBUTION WIDTH SD 43.8 fL (36.4-46.3)
[2018-03-20] MEDS ORDERED: NURSING DECISION MEDICATION ORDER SCH (06:30)
[2018-03-20 06:59] LABS: CALCIUM 8.2 mg/dl (8.5-10.1); CREATININE 0.86 mg/dl (0.60-1.20); POTASSIUM 3.9 mmol/L (3.5-5.1)
[2018-03-20] MEDS: INSULIN ASPART 100 UNITS/ML 3 ML PEN SC SCH ×2 (08:00→13:19)
[2018-03-20 08:11] VITALS: BP 150/78; PULSE 83; TEMP 36.9; O2SAT 95
[2018-03-20 08:12] VITALS: O2SAT 95
[2018-03-20] MEDS: CARBOHYDRATES FOR HYPOGLYCEMIA PO PRN ×2 (08:21→08:49)
[2018-03-20] MEDS: OXYCODONE HCL IR 5 MG TAB (IMMEDIATE RELEASE) PO PRN ×2 (08:34→15:46)
[2018-03-20] MEDS: PREDNISONE PO SCH ×2 (08:35)
[2018-03-20] MEDS: DULOXETINE HCL 60 MG CAP PO SCH (08:35)
[2018-03-20] MEDS: DOCUSATE SODIUM 100 MG CAP PO SCH (08:35)
[2018-03-20] MEDS: PANTOprazole SOD 40 MG TAB PO SCH (08:35)
[2018-03-20] MEDS: FERROUS SULFATE 325 MG TAB PO SCH (08:36)
[2018-03-20] MEDS: MAGNESIUM OXIDE 400 MG TAB PO SCH (08:36)
[2018-03-20] MEDS: VERAPAMIL HCL 240 MG TABCR PO SCH (08:36)
[2018-03-20] MEDS: SACCHAROMYCES BOUL (FLORASTOR) 250 MG CAP PO SCH (08:36)
[2018-03-20] MEDS: ASPIRIN 81 MG ECTAB PO SCH (08:36)
[2018-03-20] MEDS ORDERED: INSULIN GLARGINE SOLOSTAR 100 UNITS/ML 3 ML PEN SC SCH ×2 (09:00→10:00)
[2018-03-20] MEDS ORDERED: DAPTOmycin IV 700 MG in SODIUM CHLORIDE 0.9% 50ML 50 ML IV SCH (09:15)
[2018-03-20] MEDS ORDERED: DAPTOmycin IV 500 MG in SYRINGE 0 ML IV SCH (12:00)
[2018-03-20] MEDS ORDERED: RXC5 PO ×2 (12:10)
--- NOTE | 2018-03-20 12:23 | Discharge Summary ---
Orthopedic Discharge Summary Admission Date/Reason Mar 13, 2018 at 20:15 Back Pain At L4-L5 Level. Discharge Date/Disposition Mar 18, 2018 Home Diagnosis Principal Diagnosis: Infection lumbar spine Admission Physical Exam As per Admitting History & Physical. Hospital Course Patient was admitted the hospital with significant back pain and recurrence of right sciatica. She is medically managed for a few days but she was not improving we elected to undergo I&D lumbar spine. We did obtain cultures at that time. It grew out staph negative species. We began appropriate antibiotics PICC line was placed and she was subsequently discharged home. Discharge orders instruction. Discharge Instructions Please refer to the electronic Patient Visit Report (Discharge Instructions) for additional information.
--- NOTE | 2018-03-20 13:45 | Discharge Summary ---
Discharge Summary Date of Service Mar 20, 2018. Discharge Summary Admission Date: Mar 13, 2018 at 20:15 Discharge Date: Mar 20, 2018 Discharge Disposition: Home with services Principal Diagnosis: Lumbar spine infection Problems/Secondary Diagnoses: DM1 HTN HLD PMR Lumbar stenosis post L4-L5 decompression and fusion anxiety sleep apnea CAD Immunizations: Have You Had Influenza Vaccine: N/A History of Tetanus Vaccine?: No History of Pneumococcal: Yes History of Hepatitis B Vaccine: Unknown Procedures: LUMBAR SPINE 2 OR 3 VIEWS CLINICAL HISTORY: back pain pain COMPARISON STUDY: None FINDINGS: Findings consistent with a L4-L5 laminectomy and fusion. Disc spacer is present at L4-L5. There is significant degenerative intervertebral disc change primarily at L2-L3 as well as the low thoracic region. There is no evidence for compression deformity or subluxation. IMPRESSION: Anatomic alignment post L4-L5 laminectomy and fusion. BILATERAL LOWER EXTREMITY VENOUS DOPPLER CLINICAL HISTORY: Leg pain. COMPARISON STUDY: No previous studies for comparison. TECHNIQUE: Sonography of the deep venous system of the bilateral lower extremities was performed. Compression and augmentation were evaluated. FINDINGS: Exam was technically difficult due to difficulty positioning. The common femoral, superficial femoral and popliteal veins were compressible. Augmentation was normal. Flow was shown within the deep calf vessels. IMPRESSION: Technically difficult exam but no evidence of deep venous thrombus within the bilateral lower extremities. Electronically signed by: Diogenes Gunter M.D. 03/14/2018 12:08 PM Consultations: ID - Dr. Tavarez Ortho - Dr. Lubin Medication Reconciliation New Medications: Docusate Sodium (Docusate Sodium) 100 Mg Cap 100 MG PO BID for 30 Days, #60 CAP Oxycodone HCl (Oxycodone HCl) 5 Mg Tab 5-10 MG PO Q4H PRN for Moderate - severe pain for 30 Days, #30 TAB Polyethylene (Miralax) 17 Gm Pow 17 GM PO DAILY PRN for Constipation for 30 Days, #510 GM Continued Medications: Aspirin (Aspirin Ec) 81 Mg Tab 81 MG PO QAM Atorvastatin (Lipitor) 40 Mg Tab 40 MG PO HS, 0 Refills Calcium/Vitamin D (Os-Adebayo 500 Plus D) Tab 1 TAB PO QAM, TAB Cholecalciferol (Vitamin D3) 2,000 Unit Cap 1 CAP PO QAM for 90 Days, #90 CAP 3 Refills Duloxetine Hcl (Cymbalta) 60 Mg Cap 60 MG PO QAM, CAP Ezetimibe (Zetia) 10 Mg Tab 10 MG PO HS, 0 Refills Insulin Aspart (Novolog) 100 Units/Ml Inj 15 UNITS SC TDM AND SLIDING SCALE Insulin Glargine (Lantus) 100 Unit/Ml Inj 40 UNITS SC AMPM, VIAL Magnesium Oxide (Mag-Ox) 400 Mg Tab 400 MG PO BID, TAB Multivitamin (Multivitamin) Tab 1 TAB PO QAM, 0 Refills Omeprazole (Prilosec) 20 Mg Capcr 20 MG PO QAM, CAP Oxycodone HCl (Oxycodone HCl) 5 Mg Tab 5-10 MG PO Q4H PRN for Moderate - severe pain for 30 Days, #30 TAB Prednisone (Prednisone) 1 Mg Tab 11 MG PO QAM, TAB Tizanidine (Zanaflex) 4 Mg Cap 4 MG PO HS, 0 Refills Tocilizumab (Actemra) 162 Mg/0.9 Ml Inj 1 DOSE INJ [id number] Tramadol (Ultram) 50 Mg Tab 100 MG PO Q4H PRN for Pain, TAB Triamcinolone Acetonide (Nasal (Nasacort Allergy 24Hr) 55 Mcg/Act Spr 2 SPRAYS INTNAS HS Verapamil Sust Rel (Calan Sr Ext Rel) 240 Mg Tabcr 240 MG PO QAM, TAB [Benicar/Hctz] () 1 TAB PO QAM 40/25 MG [Coq10] () 100 MG PO QAM [Ferrous Sulfate] () 1 TAB PO BID [Lovaza] () 2 TAB PO BID Discharge Exam Review of Systems: Constitutional: No fever, No chills Respiratory: No shortness of breath Cardiovascular: No chest pain Abdomen: No pain, No nausea, No vomiting Musculoskeletal: + problem reported (back pain - soreness at surgical wound site only) Genitourinary - Female: No dysuria Physical Exam: General Appearance: no apparent distress Eyes: normal inspection ENT: hearing grossly normal Respiratory/Chest: lungs clear, normal breath sounds Cardiovascular: regular rate, rhythm, no murmur Abdomen / GI: normal bowel sounds, non tender, soft Extremities: no calf tenderness, + swelling (1+ LE edema) Neurologic/Psychiatric: alert, oriented x 3 Skin: normal color, warm/dry, + pertinent finding (lumbar back wound dressing C/D/I; YONI drain with minimal mainly serous drainage ) Hospital Course 62 y/oF with hx of DM I, HTN, HLD, PMR, and lumbar stenosis s/p surgery for L4- 5 decompression and fusion on 03/07 and discharged on 03/09. Admitted for severe lower back pain radiating to R buttocks region (similar to pain prior to surgery) and SOB in the setting of a positive blood culture (gram+ cocci) and fever at outside ED on 03/12 concerning for bacteremia. No neurologic deficits noted. A positive blood culture here as well (coag neg staph) with repeat negative blood culture. Had seroma drained and cultured which also grew coag neg staph. Received IV vancomycin pending culture sensitivities and discharged with daptomycin x 6 week via PICC. Back pain improved post I&D on antibiotic. Lumbar spine infection: Fever and (+) blood and spinal cultures in view of recent lumbar fusion on 03/07 - Outside ED BCx - one grew G+ cocci, other neg. Repeat BCx from 03/14 similarly grew G+ cocci (coag neg staph), other neg. - Repeat blood cultures drawn 03/16 - NGTD - Echo 03/16 did not show vegetations - Had I&D with seroma drainage and culture - also growing coag neg staph - received IV Vanc and discharged on Daptomycin x 6 weeks IV - picc obtained Back pain + sciatic symptoms - improved post I&D with seroma drainage and IV abx -pain management regimen - ice pack, oxycodone, Toradol (day 55), duloxetine and tizanidine. Also had tramadol and dilaudid ordered (did not use as much) Hyperventilation 2/2 anxiety (has history of this) vs. pain - anxiety improved, no further hyperventilation episodes - Initially received lorazepam then continued hydroxyzine at nights. - Continued home dose duloxetine - venous Doppler of bilateral LEs negative Constipation - Continued scheduled bowel regimen with docusate and Miralax (discharged with as well given will be taking oxycodone for back pain) Poor sleep possibly 2/2 sleep apnea - patient states she has had sleep study performed recently, but is unsure of results yet. Nocturnal pulse ox study showed small amount of time <88% sats - CPAP ordered for when sleeping DM - poorly controlled today sugars in 200s-300s range thus tightened control - Continued Lantus (home dose) + ISS (range 120-160, CF 20, and carb coverage of 1:5) + BSG ac/hs PMR - Recently placed on Tocilizumab - received a dose 2 weeks prior (likely ill- timed and additional dosing should be withheld pending full recovery) - Continued chronic prednisone 11mg QAM + pantoprazole GI ppx CAD/ HTN/ HLD - Continued aspirin 81mg QAM, verapamil 240mg, atorvastatin 40mg HS VTE ppx - SCDs FULL CODE Resident Physician Supervision Note: I interviewed and examined the patient. Discussed with Dr. Snell and agree with findings and plan as documented in the note. Any exceptions or clarifications are listed here: None Documented By: Reid Stout feeling ok. understands plan of home on dapto vitals noted nad breathing unlabored no pallor or icterus back pain /hematoma / spinal infection - home on dapto as above. close outpt f /u Total Time Spent: Less than 30 minutes This includes examination of the patient, discharge planning, medication reconciliation, and communication with other providers. Discharge Instructions Please refer to the electronic Patient Visit Report (Discharge Instructions) for additional information. Additional Copies To Kareen Harris D.O.
[2018-03-20 15:20] VITALS: BP 150/78; PULSE 83; TEMP 36.9; O2SAT 95
--- NOTE | 2018-03-24 07:46 | EDITING REQUIRED CODING QUERY ---
SEPSIS To promote full compliance with coding requirements relating to patient care, physician participation is requested in all cases of high school professional uncertainty. Please assist us with the question(s) below: In responding to this query, please exercise your independent professional judgement. The fact that a question is asked does not imply that any particular answer is desired or expected. We appreciate your clarification on this issue. Throughout the medical record, you have clearly documented a localized infection and your patient has clinical evidence of a generalized sepsis or severe sepsis. The term urosepsis is a nonspecific entity and is coded as an UTI. If the patient has sepsis, severe sepsis, from an urinary source or some other source, please clarify in your response below. The medical record reflects the following clinical findings: Patient status post spinal fusion 03/07 . Developed spinal /back pain . Cultures positive for staph. Please check below , if applicable, the diagnosis you treated. Thank you! SHELBY Pinto [facility] (x )Bacteremia (Nonspecific laboratory finding of bacteria in the blood) Specify Organism (x ) Present on Admission ( ) Not present on admission ( ) Unable to clinically determine ( ) Septicemia (Systemic disease associated with the presence of pathogenic microorganisms in the blood): Specify Organism ( ) Present on Admission (x ) Not present on admission ( ) Unable to clinically determine ( ) Sepsis Specify Organism Specify Associated Condition/Diagnosis () Present on Admission (x) Not present on admission () Unable to clinically determine ( ) Severe Sepsis (Sepsis associated with acute organ dysfunction) Specify Organism Specify Associated Condition/Diagnosis ( ) Present on Admission ( x) Not present on admission ( ) Unable to clinically determine ( ) Septic Shock (Severe sepsis with acute circulatory failure, unexplained by other causes) ( ) Present on Admission (x ) Not present on admission ( ) Unable to clinically determine ( ) Other, patient has:
[2018-03-28] MEDS ORDERED: RXC5 PO ×2 (12:50)
== END 2018-03-20 16:10 | disposition home health service (06) | DRG 862 ==
LOC: C.2E 20:15 → ENRESERV 03-17 19:49 → C.MSW 03-17 20:23
PROVIDERS: ADMIT Internal Medicine; ATTEND Family Medicine
PROC: 3E0133Z Introduction of Anti-inflammatory into Subcutaneous Tissue, Percutaneous Approach (ICD-10-PCS; principal; 2018-03-17 07:15)
PROC: 0J9700Z Drainage of Back Subcutaneous Tissue and Fascia with Drainage Device, Open Approach (ICD-10-PCS; principal; 2018-03-17 07:15)
PROC: 02HV33Z Insertion of Infusion Device into Superior Vena Cava, Percutaneous Approach (ICD-10-PCS; 2018-03-19)
DX: T81.4XXA Infection following a procedure, initial encounter (principal); A41.9 Sepsis, unspecified organism; M96.842 Postprocedural seroma of a musculoskeletal structure following a musculoskeletal system procedure; R65.21 Severe sepsis with septic shock; I10 Essential (primary) hypertension; E78.5 Hyperlipidemia, unspecified; Z98.890 Other specified postprocedural states; E11.649 Type 2 diabetes mellitus with hypoglycemia without coma; M35.3 Polymyalgia rheumatica; Z79.52 Long term (current) use of systemic steroids; Z98.1 Arthrodesis status; Z82.49 Family history of ischemic heart disease and other diseases of the circulatory system; Z88.0 Allergy status to penicillin; Z88.1 Allergy status to other antibiotic agents; T40.2X5A Adverse effect of other opioids, initial encounter; B95.8 Unspecified staphylococcus as the cause of diseases classified elsewhere; Z79.4 Long term (current) use of insulin; G47.30 Sleep apnea, unspecified; F41.9 Anxiety disorder, unspecified; R06.4 Hyperventilation; K59.03 Drug induced constipation; Y92.019 Unspecified place in single-family (private) house as the place of occurrence of the external cause; Y83.8 Other surgical procedures as the cause of abnormal reaction of the patient, or of later complication, without mention of misadventure at the time of the procedure

== ENCOUNTER 2018-03-22 13:26 | Inpatient (IN) | payer OTHER ==
[~2018-03-22] VITALS: Ht 160 cm; Wt 116.6 kg
[~2018-03-22 13:26] MED LIST changes: +CLC100 PO; +MRLP17 PO
[2018-03-22 16:10] VITALS: Ht 160 cm; Wt 116.6 kg
[2018-03-22 16:22] VITALS: BP 168/71; PULSE 77; TEMP 36.7; O2SAT 98
[2018-03-22] MEDS ORDERED: PHARMACY GLYCEMIC MGMT CONSULT PRN (17:28)
--- NOTE | 2018-03-22 18:26 | Medical Consult ---
Consultation Date of Consultation: Mar 22, 2018. Attending Physician: Bhargav Lubin D.O. Reason for Consultation: fever, medical management of chronic medical problems, altered mental status History of Present Illness Pleasant 63yo female with h/o diabetes mellitus, HTN, morbid obesity with BMI 43 , and polymyalgia rheumatica on chronic prednisone 11mg/day who presents as a transfer from [facility] in [place] due to severe RLE pain, fever to 101 degrees last evening, anorexia, and mild confusion. The patient was hospitalized from March 07 to March 09 at [facility] after having undergone L4/L4 decompression/fusion surgery by Dr. Talha Lubin for large herniated disc at that level. She was readmitted to our hospital on March 13 for recurrent back pain/RLE pain/fever and found to have infected lumbar seroma as well as bacteremia. The culprit pathogen was coag negative staph. She underwent an I/ D of the infected seroma during that stay, had RUE PICC placed, and discharged to home on 03/20/18 with a 6-week course of IV daptomycin. The patient reports that on the evening of 03/20/18 she "felt ok" but on 03/21/18 she began to have severe RLE pain, had "no appetite," and developed fever to 101 degrees. Today she was taken by her family to [facility] in [place]. Records from that ER visit indicate that she underwent CTA chest which was negative for PE. The study showed small b/l effusions and b/l atelectasis. Dopplers of both legs were negative for DVT. Blood & urine cultures were sent. Her family confirmed she has been shaky/tremulous since yesterday and they have noted her to be confused as well. When asked about her blood sugars she says "they've been fine - it was 120 something earlier today." Past Medical/Surgical History PMH: 1. T2DM 2. morbid obesity 3. HTN 4. hyperlipidemia 5. OA 6. PMR on chronic prednisone 7. h/o post-menopausal bleeding PSH: 1. 03/07/18 - L4/L5 decompression-fusion - Dr. Talha Lubin 2. 03/17/18 - lumbar I/D due to infected seroma - Dr. Talha Lubin 3. left TKR 4. b/l cataract extraction 5. BTL 6. c/s x 3 7. tonsillectomy 8. 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 Cefaclor (Verified Allergy, Intermediate, HIVES, 03/07/18) Penicillins (Verified Allergy, Intermediate, HIVES, 03/07/18) Home Medications Reported Home Medications Medications Dose Route/Sig Max Daily Dose Days Date Category Dose Instructions Oxycodone HCl 5 Mg Tab 5-10 Mg PO Q4H PRN 30 03/20/18 Rx Miralax (Polyethylene) 17 Gm Pow 17 Gm PO DAILY PRN 30 03/18/18 Rx Docusate Sodium 100 Mg Cap 100 Mg PO BID 30 03/18/18 Rx Oxycodone HCl 5 Mg Tab 5-10 Mg PO Q4H PRN 30 03/08/18 Rx Ultram (Tramadol HCl) 50 Mg Tab 100 Mg PO Q4H PRN 03/03/18 Reported Nasacort Allergy 24Hr (Triamcinolone Acetonide (Nasal) 55 Mcg/Act Spr 2 Sprays INTNAS HS 02/25/18 Reported Actemra (Tocilizumab) 162 Mg/0.9 Ml Inj 1 Dose INJ [id number] 02/25/18 Reported [Ferrous Sulfate] 1 Tab PO BID 02/25/18 Reported Vitamin D3 (Cholecalciferol) 2,000 Unit Cap 1 Cap PO QAM 90 02/25/18 Reported Mag-Ox (Magnesium Oxide) 400 Mg Tab 400 Mg PO BID 02/25/18 Reported Os-Adebayo 500 Plus D (Calcium/Vitamin D) Tab 1 Tab PO QAM 02/25/18 Reported Prilosec (Omeprazole) 20 Mg Capcr 20 Mg PO QAM 02/25/18 Reported Prednisone 1 Mg Tab 11 Mg PO QAM 02/25/18 Reported Aspirin Ec (Aspirin) 81 Mg Tab 81 Mg PO QAM 02/25/18 Reported [Lovaza] 2 Tab PO BID 02/25/18 Reported Calan Sr Ext Rel (Verapamil HCl) 240 Mg Tabcr 240 Mg PO QAM 02/25/18 Reported [Benicar/Hctz] 1 Tab PO QAM 02/25/18 Reported 40/25 MG Cymbalta (Duloxetine Hcl) 60 Mg Cap 60 Mg PO QAM 02/25/18 Reported Lantus (Insulin Glargine) 100 Unit/Ml Inj 40 Units SC AMPM 02/25/18 Reported Novolog (Insulin Aspart) 100 Units/Ml Inj 15 Units SC TDM 02/25/18 Reported AND SLIDING SCALE Multivitamin (Multivitamins) Tab 1 Tab PO QAM 01/25/10 Reported [Coq10] 100 Mg PO QAM 01/25/10 Reported Lipitor (Atorvastatin Calcium) 40 Mg Tab 40 Mg PO HS 01/25/10 Reported Zetia (Ezetimibe) 10 Mg Tab 10 Mg PO HS 01/25/10 Reported Zanaflex (Tizanidine HCl) 4 Mg Cap 4 Mg PO HS 01/25/10 Reported Current Inpatient Medications Current Inpatient Medications Medications (Trade) Dose Ordered Sig/Jovanni Route Start Time Stop Time Status Last Admin Dose Admin Miscellaneous Information (Consult Glycemic Management Pharmacy) 1 ea UD PRN N/A 03/22/18 17:28 04/21/18 17:27 Review of Systems Constitutional: + fever, + chills, + weakness, + fatigue, No sweats, No weight loss Eyes: No worsening of vision ENT: + sore throat, No nasal symptoms, No trouble swallowing Respiratory: No cough, No sputum, No wheezing, No dyspnea at rest Cardiovascular: + edema (since her 2nd surgery), No chest pain, No orthopnea, No PND Abdomen: No pain, No nausea, No vomiting, No diarrhea, No constipation Musculoskeletal: + joint pain (left knee - chronic), No muscle pain Genitourinary - Female: No dysuria Neurologic: + numbness/tingling (right leg, and to a minimal extent, left leg) Psychiatric: No depression symptoms Endocrine: + fatigue Hematologic / Lymphatic: No abnormal bleeding/bruising Integumentary: No rash Physical Exam Date Time Temp Pulse Resp B/P (MAP) Pulse Ox O2 Delivery O2 Flow Rate FiO2 03/22/18 16:22 36.7 77 16 168/71 (103) 98 Room Air General Appearance: + mild distress (looks ill, shaky/tremulous (rigors?), pale , a/o x 2 (thought it was 2019)), + obese Head: normocephalic, atraumatic Eyes: PERRL ENT: + pertinent finding (MM mildly dry) Neck: supple, no adenopathy, thyroid normal, no JVD Respiratory/Chest: no respiratory distress, no accessory muscle use, + decreased breath sounds (b/l bases) Cardiovascular: regular rate, rhythm, no gallop, no murmur, normal peripheral pulses Abdomen/GI: normal bowel sounds, non tender, soft, no organomegaly Extremities/Musculoskelatal: + pedal edema, + swelling (2-3+ b/l up to both calves), + pertinent finding (PICC RUE - clean, no redness; left knee - TKR scar present; scant effusion, no warmth, no redness, no pain w/ passive ROM) Neurologic/Psych: alert, + disoriented, + pertinent finding (strength 5/5 x 4 exts; DTRs right leg 2+, left leg 1-2+) Skin: + pertinent finding (incision, lumbar spine, covered with steri-strips; scant serosanguinous drainage; no fluctuance, odor, or tenderness to palpation) Lymphatic: no adenopathy (no cervical lymphadenopathy) Laboratory Results Last 24 Hours Test 03/22/18 17:29 Bedside Glucose 300 mg/dl Labs reviewed from [facility], drawn 03/22/18: Glucose 179, BUN 17, Cr 1 albumin 2.3 Sodium 133 K 3.6, Ca 8.6, CO2 34 AST, ALT wnl CRP 11 lactate 0.9 CK 37 BNP 450 Troponin 0.015 INR 1 WBC 12.8 H/H - 7.7, 23.[address] platelets [address] chest - no PE, no dissection, small b/l pleural effusions, atelectasis bases Dopplers b/l legs negative for DVT Assessment & Plan Pleasant 63yo female with h/o diabetes mellitus, HTN, morbid obesity with BMI 43 , and polymyalgia rheumatica on chronic prednisone 11mg/day who presents as a transfer from [facility] in [place] due to severe RLE pain, fever to 101 degrees last evening, anorexia, and mild confusion. The patient was hospitalized from March 07 to March 09 at [facility] after having undergone L4/L4 decompression/fusion surgery by Dr. Talha Lubin for large herniated disc at that level. She was readmitted to our hospital on March 13 for recurrent back pain/RLE pain/fever and found to have infected lumbar seroma as well as bacteremia. The culprit pathogen was coag negative staph. She underwent an I/ D of the infected seroma during that stay, had RUE PICC placed, and discharged to home on 03/20/18 with a 6-week course of IV daptomycin. She now presents with recurrent fever, anorexia, mild confusion, severe RLE pain , mild hyponatremia, and worsening anemia. 1. fever, mild encephalopathy, anorexia, leukocytosis - concerning for early sepsis. Source could be the lumbar spine vs UTI vs recurrent bacteremia vs other. Blood/urine cx's were sent at [facility]. Will follow-up on those tomorrow. In meantime will continue the IV daptomycin daily that was previously prescribed for the coag negative staph bacteremia and coag negative staph infection in the lumbar spine. Will also add aztreonam IV to cover gram negatives while awaiting her cultures. I spoke with Dr. Lubin and he will have a low threshold to perform an MRI of the lumbar spine and/or explore the lumbar spine if another source of infection is not found. The PICC line itself appears clean at this time. 2. encephalopathy - metabolic (fever, etc) and toxic (pain medications). Hold zanaflex and oxycodone. Dilaudid prn pain. Check VBG to ensure no hypercarbia contributing to delirium. 3. acute/chronic anemia - Hb was 7.7 earlier today at [facility]. She was 8.1 a few days ago at [facility]. I suspect the value is even lower as she appears dehydrated. Will transfuse 2 units PRBCs. Consent obtained. CBC in am. 4. T2DM - on 4-shot insulin regimen at home - may need IV insulin as she is uncontrolled and she will be receiving stress dose steroids. Pharmacy to consult to assist with DM management. 5. PMR on chronic steroids - she deserves stress dose steroids given #1. Hydrocortisone 25mg IV q8h. Hold prednisone. 6. HTN - BP mildly elevated at time of transfer; continue home meds. 7. h/o hypomagnesemia - check mag level now. 8. morbid obesity with BMI 43.5. 9. atelectasis on CT chest - incentive spirometry. 10. FEN - hold fluids since blood will be given tonight. BMP in am. Mag level now. T2DM diet. 11. hyponatremia - she appears volume depleted. See #10. BMP am. 12. DVT proph - defer to orthopedic service. code status - level 1, full code care discussed extensively with Dr. Lubin along with patient's and daughter transfer to telemetry given the complexity of her issues and potential for decompensation total time spent reviewing records from prior hospital stays, records from [facility], orders, med rec, etc - 90 minutes Additional Copies To Bhargav Lubin D.O.; Kareen Harris D.O.
[2018-03-22] MEDS ORDERED: ACETAMINOPHEN 500 MG TAB PO SCH (19:00)
[2018-03-22] MEDS ORDERED: ONDANSETRON INJ 2 MG/ML 2 ML VIAL IV PRN (19:30)
[2018-03-22] MEDS: OXYCODONE HCL IR 5 MG TAB (IMMEDIATE RELEASE) PO PRN (19:35)
[2018-03-22] MEDS ORDERED: GLUCOSE 40% GEL 15 GM TUBE PO PRN (19:45)
[2018-03-22] MEDS ORDERED: GLUCAGON FOR INJ 1 MG VIAL IM PRN (19:45)
[2018-03-22] MEDS ORDERED: GLUCOSE 10 TABS/TUBE PO PRN (19:45)
[2018-03-22] MEDS ORDERED: DEXTROSE 50% 50 ML SYR IV PRN (19:45)
[2018-03-22] MEDS ORDERED: MAGNESIUM SULFATE 1GM / D5W 100 ML IV STA (19:57)
[2018-03-22 20:00] VITALS: BP 143/74; PULSE 74; TEMP 37.8; O2SAT 95
[2018-03-22] MEDS ORDERED: [UNRECOGNIZED DRUG - OTHER] IV SCH ×2 (20:00→20:15)
[2018-03-22] MEDS ORDERED: INSULIN REGULAR IV SCH ×2 (20:00→20:15)
[2018-03-22] MEDS ORDERED: INSULIN HUMAN REGULAR PER UNIT 10 UNITS in SYRINGE 9.9 ML IV STA (20:01)
[2018-03-22] MEDS: HYDROCORTISONE IV 25 MG in SYRINGE 0 ML IV SCH (20:30)
[2018-03-22] MEDS: INSULIN GLARGINE SOLOSTAR 100 UNITS/ML 3 ML PEN SC SCH (20:37)
[2018-03-22] MEDS: ATORVASTATIN 40 MG TAB PO SCH (20:42)
[2018-03-22] MEDS: MAGNESIUM OXIDE 400 MG TAB PO SCH (20:42)
[2018-03-22] MEDS: EZETIMIBE 10MG TAB PO SCH (20:42)
[2018-03-22] MEDS: DOCUSATE SODIUM 100 MG CAP PO SCH (20:42)
[2018-03-22] MEDS: TRIAMCINOLONE ACET NASAL SPRAY 10.8ML BTL NAE SCH (20:43)
[2018-03-22] MEDS: INSULIN ASPART 100 UNITS/ML 3 ML PEN SC SCH (20:57)
[2018-03-22] MEDS: AZTREONAM IV 2,000 MG in DEXTROSE 5% 100ML 100 ML IV SCH (21:06)
[2018-03-22 21:40] VITALS: BP 126/65; PULSE 81; TEMP 36.7; O2SAT 94
[2018-03-22 21:58] VITALS: BP 120/54; PULSE 75; TEMP 36.9; O2SAT 95
[2018-03-22 22:28] VITALS: BP 124/51; PULSE 68; TEMP 36.9; O2SAT 95
[2018-03-22 23:28] VITALS: BP 149/64; PULSE 73; TEMP 37.4; O2SAT 92
[2018-03-23] VITALS (10 sets, daily range): BP systolic 115–169; BP diastolic 48–99; PULSE 64–73; TEMP 36.4–37.6; O2SAT 94–99
[2018-03-23] MEDS: INSULIN ASPART 100 UNITS/ML 3 ML PEN SC SCH ×6 (00:09→20:20)
[2018-03-23] MEDS: HYDROCORTISONE IV 25 MG in SYRINGE 0 ML IV SCH ×3 (03:46→23:49)
[2018-03-23] MEDS: AZTREONAM IV 2,000 MG in DEXTROSE 5% 100ML 100 ML IV SCH ×3 (03:47→20:04)
[2018-03-23 05:59] LABS: BASO % 0.1 %; BASO ABS # 0.02 K/uL (0-0.2); EOS % 0.1 %; EOS ABS # 0.02 K/uL (0-0.5); HEMATOCRIT 28.8 % (37-47); HEMOGLOBIN 9.6 g/dL (12.0-16.0); IG# 0.08 K/uL (0.00-0.02); LYMPH % 7.2 %; LYMPH ABS # 1.02 K/uL (1.2-3.4); MEAN CELL VOLUME 86.7 fL (80-100); MEAN CORPUSCULAR HEMOGLOBIN 28.9 pg (25-34); MEAN CORPUSCULAR HGB CONC 33.3 g/dl (32-36); MEAN PLATELET VOLUME 8.2 fL (7.4-10.4); MONO % 5.1 %; MONO ABS # 0.72 K/uL (0.11-0.59); NEUT % 86.9 %; NEUT ABS # 12.32 K/uL (1.4-6.5); PLATELET COUNT 419 K/uL (130-400); WHITE BLOOD COUNT 14.18 K/uL (4.8-10.8)
[2018-03-23 06:36] LABS: CALCIUM 8.5 mg/dl (8.5-10.1); CREATININE 1.11 mg/dl (0.60-1.20); POTASSIUM 4.4 mmol/L (3.5-5.1)
[2018-03-23] MEDS: INSULIN GLARGINE SOLOSTAR 100 UNITS/ML 3 ML PEN SC SCH ×2 (07:57→20:20)
[2018-03-23] MEDS: VERAPAMIL HCL 240 MG TABCR PO SCH (08:00)
[2018-03-23] MEDS: DOCUSATE SODIUM 100 MG CAP PO SCH ×2 (08:00→20:05)
[2018-03-23] MEDS: CALCIUM 600MG + VIT D 400 IU TAB PO SCH (08:00)
[2018-03-23] MEDS: DULOXETINE HCL 60 MG CAP PO SCH (08:01)
[2018-03-23] MEDS: MAGNESIUM OXIDE 400 MG TAB PO SCH ×2 (08:01→20:06)
[2018-03-23] MEDS: POLYETHYLENE (MIRALAX) 17 GM PACK PO SCH (08:02)
[2018-03-23] MEDS: MULTIVITAMIN TAB PO SCH (08:02)
[2018-03-23] MEDS: PANTOprazole SOD 40 MG TAB PO SCH (08:02)
[2018-03-23] MEDS: DAPTOmycin IV 500 MG in SYRINGE 0 ML IV SCH (08:40)
[2018-03-23] MEDS ORDERED: DAPTOmycin IV 500 MG in SODIUM CHLORIDE 0.9% 50ML 50 ML IV SCH (09:00)
--- NOTE | 2018-03-23 09:21 | Pharmacy Progress Note ---
Glycemic Control Intl Consult Date of Service Mar 23, 2018. Scope Glycemic Pharmacist consulted by Dr Lubin on 03/22/18 for glycemic control and to write orders per [facility] inpatient glycemic control protocol Objective Weight (Kilograms): 120.200 Accuchecks BSG (last 24hrs): Test 03/22/18 17:29 03/22/18 19:50 03/22/18 20:55 03/23/18 00:07 Bedside Glucose 300 mg/dl (70-90) 350 mg/dl (70-90) 330 mg/dl (70-90) 251 mg/dl (70-90) Test 03/23/18 03:45 03/23/18 05:11 03/23/18 07:10 Bedside Glucose 201 mg/dl (70-90) 234 mg/dl (70-90) Random Glucose 195 mg/dl (70-99) Laboratory Data (last 24hrs) Test 03/23/18 05:11 Anion Gap 7.0 mmol/L BUN/Creatinine Ratio 17.7 Blood Urea Nitrogen 20 mg/dl Creatinine 1.11 mg/dl Potassium Level 4.4 mmol/L Sodium Level 134 mmol/L White Blood Count 14.18 K/uL Red Blood Count 3.32 M/uL Hemoglobin 9.6 g/dL Hematocrit 28.8 % Mean Corpuscular Volume 86.7 fL Mean Corpuscular Hemoglobin 28.9 pg Mean Corpuscular Hemoglobin Concent 33.3 g/dl Platelet Count 419 K/uL Mean Platelet Volume 8.2 fL Neutrophils (%) (Auto) 86.9 % Lymphocytes (%) (Auto) 7.2 % Monocytes (%) (Auto) 5.1 % Eosinophils (%) (Auto) 0.1 % Basophils (%) (Auto) 0.1 % Neutrophils # (Auto) 12.32 K/uL Lymphocytes # (Auto) 1.02 K/uL Monocytes # (Auto) 0.72 K/uL Eosinophils # (Auto) 0.02 K/uL Basophils # (Auto) 0.02 K/uL Recent Pertinent Medications Outpatient Anti-diabetic Regimen: * Lantus 40 units BID * Novolog 15 units TID + SSI * On chronic prednisone 11 mg daily * A1c = 9.6 % 03/08/18 - may be unreliable d/t chronic anemia The patient is currently receiving: * Basal insulin: Lantus 40 units every 12 hours * Correctional Insulin: Novolog Correction per scale ACHS Goal Range: Low 110 mg/dL - High 140 mg/dL Correction Factor: 20 mg/dL/unit * Prandial insulin: Per carb ratio of 1 unit per 7 grams CHO consumed Risk Factors for Insulin Resistance: * Steroids: HC 25 mg IV q8h * Infection: on dapto/Azactam for possible early sepsis * Diet: type 2 diabetes Assessment & Plan ASSESSMENT: * 63 y/o female with type 2 diabetes, controlled on basal/bolus insulin as an outpatient. She was transferred from [facility] yesterday after presenting with a fever s/p I&D of infected lumbar seroma. * BSGs were in the 300s on admission but improved after an IV insulin bolus and resumption of basal/bolus insulin. BSG from [facility] reported to be 179 mg/ dl so the elevation was most likely from stress and steroids. She also may have missed her AM Lantus yesterday. * Will plan to continue with the same basal dose for now - more heavily weighted on basal as an outpatient * Will tighten Novolog parameters further to assist with postprandial BSGs PLAN FOR INPATIENT GLYCEMIC CONTROL: * Basal insulin with LANTUS 40 units SQ BID * Bolus Insulin with NOVOLOG per scale ACHS or Q6hrs while NPO * Goal Range: Low 110 mg/dL - High 140 mg/dL * TIGHTEN Correction Factor: 15 mg/dL/unit * TIGHTEN Nutritional / Prandial insulin per carb ratio of 1 unit per 5 grams CHO consumed * Please note that the plan above was derived based on current level of insulin resistance and hospital stress. These recommendations are appropriate for inpatient admission only. Plan of care upon discharge will need to be reassessed to avoid potential outpatient hypo/hyperglycemia. Thank you.
[2018-03-23] MEDS ORDERED: FUROSEMIDE INJ 20 MG in SYRINGE 0 ML IV ONE (10:15)
[2018-03-23] MEDS ORDERED: MAGNESIUM OXIDE 400 MG TAB PO ONE (10:15)
[2018-03-23] MEDS: OXYCODONE HCL IR 5 MG TAB (IMMEDIATE RELEASE) PO PRN ×3 (10:28→23:54)
--- NOTE | 2018-03-23 11:15 | History and Physical ---
History & Physical Date Mar 23, 2018. Chief Complaint Recurrent back and leg pain History of Present Illness The patient is a 63 year old female with complaints of worsening back and leg pain beginning Saturday. She was discharged after undergoing I&D and the initiation of IV antibiotics. Unfortunately her symptoms but started to become quite limiting Saturday. She denies any specific trauma fall or event. She was taken to the [facility] and I received a phone call from the ER physician. There was some concern regarding a temperature of 101 at home. She was neurologically intact. Blood cultures and urine cultures were taken. I had her transferred to our institution. This time her pain is improving. She has pain in the back and bilateral buttocks. It does not extend down the right lower extremity like it had last week. Past Medical/Surgical History Medical Problems: (1) Back pain at L4-L5 level (2) Bacteremia (3) Gram positive septicemia (4) Lumbar stenosis with neurogenic claudication Surgical Problems: (1) S/P lumbar fusion Additional History Hepatic Disease: No Endocrine Disorder: No Kidney Disease: No Hypertension: No Heart Disease: No Bleeding Tendencies: No Infectious Diseases: No Other: Polymyalgia rheumatica and diabetes Allergies Coded Allergies: Adhesives (Verified Allergy, Intermediate, RASH, 03/07/18) Irritates and tears skin. Cefaclor (Verified Allergy, Intermediate, HIVES, 03/07/18) Penicillins (Verified Allergy, Intermediate, HIVES, 03/07/18) Home Medications Scheduled Aspirin (Aspirin Ec), 81 MG PO QAM Atorvastatin (Lipitor), 40 MG PO HS Calcium/Vitamin D (Os-Adebayo 500 Plus D), 1 TAB PO QAM Cholecalciferol (Vitamin D3), 1 CAP PO QAM Docusate Sodium (Docusate Sodium), 100 MG PO BID Duloxetine Hcl (Cymbalta), 60 MG PO QAM Ezetimibe (Zetia), 10 MG PO HS Insulin Aspart (Novolog), 15 UNITS SC TDM Insulin Glargine (Lantus), 40 UNITS SC AMPM Magnesium Oxide (Mag-Ox), 400 MG PO BID Multivitamin (Multivitamin), 1 TAB PO QAM Omeprazole (Prilosec), 20 MG PO QAM Prednisone (Prednisone), 11 MG PO QAM Tizanidine (Zanaflex), 4 MG PO HS Tocilizumab (Actemra), 1 DOSE INJ [id number] Triamcinolone Acetonide (Nasal (Nasacort Allergy 24Hr), 2 SPRAYS INTNAS HS Verapamil Sust Rel (Calan Sr Ext Rel), 240 MG PO QAM [Benicar/Hctz], 1 TAB PO QAM [Coq10], 100 MG PO QAM [Ferrous Sulfate], 1 TAB PO BID [Lovaza], 2 TAB PO BID Scheduled PRN Oxycodone HCl (Oxycodone HCl), 5-10 MG PO Q4H PRN for Moderate - severe pain Oxycodone HCl (Oxycodone HCl), 5-10 MG PO Q4H PRN for Moderate - severe pain Polyethylene (Miralax), 17 GM PO DAILY PRN for Constipation Tramadol (Ultram), 100 MG PO Q4H PRN for Pain Physical Examination Addiitonal Comments: On exam she is in the chair at the bedside. She is only very modest discomfort to palpation of lumbar musculature. She does have a significant swelling to bilateral lower extremities. This is been present for several weeks. She has no tension signs this morning. She has 5/5 strength testing. Sensory symmetric and intact. She is alert and oriented. Diagnosis Status post I&D lumbar spine secondary to infection. Plan of Treatment Plan at this time will continue to monitor closely. Discussed having a very low threshold to obtain an MRI lumbar spine if she fails to noted significant improvement over the next 24 hours. She agrees with this plan. Will make further recommendations as we progress. We will await final cultures from [facility].
[2018-03-23] MEDS: TRIAMCINOLONE ACET NASAL SPRAY 10.8ML BTL NAE SCH (20:05)
[2018-03-23] MEDS: EZETIMIBE 10MG TAB PO SCH (20:06)
[2018-03-23] MEDS: ATORVASTATIN 40 MG TAB PO SCH (20:06)
--- NOTE | 2018-03-23 20:15 | Progress Note ---
Subjective Date of Service: Mar 23, 2018. Subjective Pt evaluation today including: conversation w/ patient, conversation w/ family (daughter, ), physical exam, chart review, lab review, review of studies (cultures from [facility] ), review of inpatient medication list Pain: right leg - severe; left leg - mild PO Intake: scantly improved Voiding: no voiding problems tele stable overnight she feels better following the PRBCs she continues to wear the oxygen "for comfort" denies any worsening in her breathing still with tremors/shakes but these, too, are improved family agrees she looks better and is not so confused today Review of Systems Constitutional: No fever Respiratory: No cough, No shortness of breath Cardiac: No chest pain Abdomen: No pain, No diarrhea Female : + dysuria Objective Vital Signs Date Time Temp Pulse Resp B/P (MAP) Pulse Ox O2 Delivery O2 Flow Rate FiO2 03/23/18 08:00 Nasal Cannula 2.0 03/23/18 07:11 36.8 72 18 155/71 (99) 97 Nasal Cannula 4.0 03/23/18 02:55 36.7 65 18 143/79 99 2.0 03/23/18 01:55 36.7 66 18 129/99 98 2.0 03/23/18 01:25 36.9 64 18 169/58 97 2.0 03/23/18 01:06 37.2 68 18 156/59 98 2.0 03/23/18 00:28 36.8 65 18 158/63 98 2.0 03/22/18 23:28 37.4 73 18 149/64 92 2.0 03/22/18 22:28 36.9 68 22 124/51 95 2.0 03/22/18 21:58 36.9 75 22 120/54 95 2.0 03/22/18 21:40 36.7 81 22 126/65 94 2.0 03/22/18 20:00 Nasal Cannula 2.0 03/22/18 20:00 37.8 74 24 143/74 (97) 95 Room Air 03/22/18 16:22 36.7 77 16 168/71 (103) 98 Room Air 03/22/18 16:10 Nasal Cannula 2.0 Physical Exam General Appearance: no apparent distress, + obese, + pertinent finding ( overall looks better today) ENT: pharynx normal (MM more moist today) Neck: no JVD Respiratory/Chest: no respiratory distress, no accessory muscle use, + decreased breath sounds (bases) Cardiovascular: regular rate, rhythm, no gallop, no murmur Abdomen: normal bowel sounds, non tender, soft, no organomegaly Extremities: + pedal edema, + swelling (3+ b/l ) Neurologic/Psychiatric: alert, oriented x 3, + pertinent finding (slightly confused today but overall much better than yesterday; less tremors noted today) Skin: + pertinent finding (pallor much improved) Laboratory Results Last 24 Hours Test 03/22/18 17:29 03/22/18 19:11 03/22/18 19:50 03/22/18 20:55 Bedside Glucose 300 mg/dl 350 mg/dl 330 mg/dl Venous Blood pH 7.40 Venous Blood Partial Pressure CO2 51 mmHg Venous Blood Partial Pressure O2 33 mmHg Venous Blood HCO3 31 mmol/L Venous Blood Oxygen Saturation 61.1 % Venous Blood Base Excess 5.4 mEq/L Magnesium Level 1.7 mg/dl Test 03/23/18 00:07 03/23/18 03:45 03/23/18 05:11 03/23/18 07:10 Bedside Glucose 251 mg/dl 201 mg/dl 234 mg/dl White Blood Count 14.18 K/uL Red Blood Count 3.32 M/uL Hemoglobin 9.6 g/dL Hematocrit 28.8 % Mean Corpuscular Volume 86.7 fL Mean Corpuscular Hemoglobin 28.9 pg Mean Corpuscular Hemoglobin Concent 33.3 g/dl Platelet Count 419 K/uL Mean Platelet Volume 8.2 fL Neutrophils (%) (Auto) 86.9 % Lymphocytes (%) (Auto) 7.2 % Monocytes (%) (Auto) 5.1 % Eosinophils (%) (Auto) 0.1 % Basophils (%) (Auto) 0.1 % Neutrophils # (Auto) 12.32 K/uL Lymphocytes # (Auto) 1.02 K/uL Monocytes # (Auto) 0.72 K/uL Eosinophils # (Auto) 0.02 K/uL Basophils # (Auto) 0.02 K/uL RDW Standard Deviation 44.0 fL RDW Coefficient of Variation 14.0 % Immature Granulocyte % (Auto) 0.6 % Immature Granulocyte # (Auto) 0.08 K/uL Sodium Level 134 mmol/L Potassium Level 4.4 mmol/L Chloride Level 95 mmol/L Carbon Dioxide Level 32 mmol/L Anion Gap 7.0 mmol/L Blood Urea Nitrogen 20 mg/dl Creatinine 1.11 mg/dl Est Creatinine Clear Calc Drug Dose 66.0 ml/min Estimated GFR () 61.6 Estimated GFR (Non- 53.2 BUN/Creatinine Ratio 17.7 Random Glucose 195 mg/dl Calcium Level 8.5 mg/dl Assessment and Plan Pleasant 63yo female with h/o diabetes mellitus, HTN, morbid obesity with BMI 43 , and polymyalgia rheumatica on chronic prednisone 11mg/day who presents as a transfer from [facility] in [place] due to severe RLE pain, fever to 101 degrees last evening, anorexia, and mild confusion. The patient was hospitalized from March 07 to March 09 at [facility] after having undergone L4/L4 decompression/fusion surgery by Dr. Talha Lubin for large herniated disc at that level. She was readmitted to our hospital on March 13 for recurrent back pain/RLE pain/fever and found to have infected lumbar seroma as well as bacteremia. The culprit pathogen was coag negative staph. She underwent an I/ D of the infected seroma during that stay, had RUE PICC placed, and discharged to home on 03/20/18 with a 6-week course of IV daptomycin. She was readmitted 03/22/18 with recurrent fever, anorexia, mild confusion, severe RLE pain, mild hyponatremia, and worsening anemia. 1. probable early sepsis - source could be the lumbar spine vs UTI vs recurrent bacteremia vs other. Blood/urine cx's at [facility] as of 03/23 both negative. Cont IV daptomycin for coag negative staph bacteremia and coag negative staph infection in the lumbar spine. Added aztreonam IV empirically to cover gram negatives while awaiting her cultures. Dr. Lubin to have low threshold to perform MRI of the lumbar spine and/or explore the lumbar spine operatively if another source of infection is not found. The PICC line itself appears clean at this time. 2. encephalopathy - metabolic (fever, etc) and toxic (pain medications). Hold zanaflex and oxycodone. Dilaudid prn pain. VBG w/o hypercarbia. Doubt hyponatremia, since it is very mild, is contributing to her confusion. Overall she is improved today. 3. acute/chronic anemia - Hb was 7.7 at [facility] prior to transfer. She was 8.1 a few days ago at [facility]. s/p 2 units pRBCs with improved H/H today. CBC in am. 4. T2DM - appreciate pharmacy glycemic consult. Control improving. 5. PMR on chronic steroids - she deserves stress dose steroids given #1. Prednisone changed to Hydrocortisone 25mg IV q8h on 03/22. Hold prednisone in meantime. Wean to q12h dosing today. 6. HTN - controlled; continue home meds. 7. h/o hypomagnesemia - recheck mag in am. 8. morbid obesity with BMI 43.5. 9. atelectasis on CT chest - incentive spirometry. 10. FEN - BMP/mag AM. T2DM diet. Hold on fluids. 11. hyponatremia - improved. 12. DVT proph - defer to orthopedic service. 13. LE edema - likely 2nd to hypoalbuminemia, recent fluids during previous 2 hospital stays, etc. CTA chest at [facility] on 03/22 neg for PE and dopplers of both legs neg for DVT. Lasix 20mg IV x 1. CTA chest did not demonstrate CHF. 14. RLE pain - radicular in nature from L-spine - defer pain control to orthopedics. Consider gabapentin or something similar. code status - level 1, full code family today requested that at completion of this stay, if deemed a candidate, attend [facility] for rehab Continued [facility] stay due to: fever, inadequate po fluid intake, inadequate oral pain control, ambulation difficulties, multiple IV medications needed Discharge planning: uncertain (family requesting [facility] following this admission)
[2018-03-24] VITALS (7 sets, daily range): BP systolic 109–162; BP diastolic 60–93; PULSE 74–85; TEMP 36.4–37.3; O2SAT 91–98
[2018-03-24] MEDS: AZTREONAM IV 2,000 MG in DEXTROSE 5% 100ML 100 ML IV SCH ×2 (04:08→11:47)
[2018-03-24] MEDS: OXYCODONE HCL IR 5 MG TAB (IMMEDIATE RELEASE) PO PRN ×4 (04:11→21:42)
[2018-03-24 05:18] LABS: BASO % 0.1 %; BASO ABS # 0.01 K/uL (0-0.2); EOS % 0.3 %; EOS ABS # 0.04 K/uL (0-0.5); HEMATOCRIT 27.2 % (37-47); IG# 0.09 K/uL (0.00-0.02); LYMPH % 10.6 %; LYMPH ABS # 1.25 K/uL (1.2-3.4); MEAN CELL VOLUME 86.6 fL (80-100); MEAN CORPUSCULAR HEMOGLOBIN 28.7 pg (25-34); MEAN CORPUSCULAR HGB CONC 33.1 g/dl (32-36); MEAN PLATELET VOLUME 7.9 fL (7.4-10.4); MONO % 6.1 %; MONO ABS # 0.72 K/uL (0.11-0.59); NEUT % 82.1 %; NEUT ABS # 9.68 K/uL (1.4-6.5); PLATELET COUNT 362 K/uL (130-400); RED CELL DISTRIBUTION WIDTH CV 13.7 % (11.5-14.5); RED CELL DISTRIBUTION WIDTH SD 43.4 fL (36.4-46.3); WHITE BLOOD COUNT 11.79 K/uL (4.8-10.8)
[2018-03-24 05:45] LABS: CALCIUM 8.5 mg/dl (8.5-10.1); CREATININE 1.18 mg/dl (0.60-1.20); POTASSIUM 4.2 mmol/L (3.5-5.1)
[2018-03-24] MEDS: PANTOprazole SOD 40 MG TAB PO SCH (08:42)
[2018-03-24] MEDS: CALCIUM 600MG + VIT D 400 IU TAB PO SCH (08:42)
[2018-03-24] MEDS: POLYETHYLENE (MIRALAX) 17 GM PACK PO SCH (08:42)
[2018-03-24] MEDS: DULOXETINE HCL 60 MG CAP PO SCH (08:42)
[2018-03-24] MEDS: DAPTOmycin IV 500 MG in SYRINGE 0 ML IV SCH (08:42)
[2018-03-24] MEDS: MULTIVITAMIN TAB PO SCH (08:42)
[2018-03-24] MEDS: VERAPAMIL HCL 240 MG TABCR PO SCH (08:42)
[2018-03-24] MEDS: MAGNESIUM OXIDE 400 MG TAB PO SCH ×2 (08:43→20:54)
[2018-03-24] MEDS: DOCUSATE SODIUM 100 MG CAP PO SCH ×2 (08:43→20:54)
[2018-03-24] MEDS: INSULIN ASPART 100 UNITS/ML 3 ML PEN SC SCH ×4 (08:48→21:00)
[2018-03-24] MEDS: INSULIN GLARGINE SOLOSTAR 100 UNITS/ML 3 ML PEN SC SCH (08:48)
[2018-03-24] MEDS: HYDROCORTISONE IV 25 MG in SYRINGE 0 ML IV SCH ×2 (11:47→23:23)
--- NOTE | 2018-03-24 15:05 | Progress Note ---
Subjective Date of Service: Mar 24, 2018. Subjective Pt evaluation today including: conversation w/ patient, physical exam, chart review, lab review, review of studies, conversation w/ public relations consultant, review of inpatient medication list Sitting up in bed, complaining about lower back pain radiation down to right posterior extremity generalized weakness, poor appetite, Review of Systems Constitutional: + weakness, + fatigue, No fever, No chills, No sweats, No weight loss, No problem reported Eyes: No worsening of vision, No eye pain, No redness, No discharge, No diplopia ENT: No hearing loss, No unusual epistaxis, No nasal symptoms, No sore throat, No tinnitus, No dental problems, No trouble swallowing Respiratory: No cough, No sputum, No wheezing, No shortness of breath, No dyspnea on exertion, No dyspnea at rest, No hemoptysis Cardiac: No chest pain, No orthopnea, No PND, No edema, No claudication, No palpitations Abdomen: No pain, No nausea, No vomiting, No diarrhea, No constipation Musculoskeletal: + joint pain, No muscle pain, No swelling, No calf pain Female : No dysuria, No urinary frequency, No hematuria, No incontinence, No abnormal vaginal bleeding, No vaginal discharge Neurologic: No memory loss, No paralysis, No weakness, No numbness/tingling, No vertigo, No balance problems Psychiatric: No depression symptoms, No anhedonism, No anxiety, No insomnia, No substance abuse Heme: No abnormal bleeding/bruising, No clotting problems, No swollen lymph nodes, No night sweats Endo: No fatigue, No excessive thirst, No excessive urination Skin: No rash, No itch, No new/changing skin lesions, No color change, No bleeding Objective Vital Signs Date Time Temp Pulse Resp B/P (MAP) Pulse Ox O2 Delivery O2 Flow Rate FiO2 03/24/18 13:19 37.0 74 20 137/61 (86) 92 Room Air 03/24/18 08:33 36.9 79 20 109/69 (82) 95 Nasal Cannula 2.0 03/24/18 08:00 Room Air 03/24/18 04:03 36.4 82 22 145/76 (99) 92 Room Air 03/23/18 23:30 37.4 70 20 153/73 (99) 98 Nasal Cannula 2.0 03/23/18 20:00 Room Air 03/23/18 19:05 37.6 73 22 130/70 (90) 94 Room Air Physical Exam General Appearance: WD/WN, no apparent distress, + pertinent finding ( Conversational) Eyes: normal inspection, PERRL, EOMI, sclerae normal ENT: normal ENT inspection, hearing grossly normal, pharynx normal Neck: supple, no adenopathy, thyroid normal, no JVD, no carotid bruits, trachea midline Respiratory/Chest: chest non-tender, normal breath sounds, no respiratory distress, no accessory muscle use, + decreased breath sounds Cardiovascular: regular rate, rhythm, no edema, no gallop, no JVD, no murmur, + pertinent finding (1+ edema) Abdomen: normal bowel sounds, soft, no organomegaly, no pulsatile mass, + distended Extremities: normal range of motion, non-tender, normal inspection, no pedal edema, no calf tenderness, normal capillary refill, pelvis stable, + swelling (1 -2+ edema) Neurologic/Psychiatric: chief accounting officer II-XII nml as tested, no motor/sensory deficits, alert, normal mood/affect, oriented x 3 Skin: normal color, warm/dry, no rash Lymphatic: no adenopathy Laboratory Results Last 24 Hours Test 03/23/18 16:14 03/23/18 20:11 03/24/18 05:10 03/24/18 07:37 Bedside Glucose 195 mg/dl 107 mg/dl 153 mg/dl White Blood Count 11.79 K/uL Red Blood Count 3.14 M/uL Hemoglobin 9.0 g/dL Hematocrit 27.2 % Mean Corpuscular Volume 86.6 fL Mean Corpuscular Hemoglobin 28.7 pg Mean Corpuscular Hemoglobin Concent 33.1 g/dl Platelet Count 362 K/uL Mean Platelet Volume 7.9 fL Neutrophils (%) (Auto) 82.1 % Lymphocytes (%) (Auto) 10.6 % Monocytes (%) (Auto) 6.1 % Eosinophils (%) (Auto) 0.3 % Basophils (%) (Auto) 0.1 % Neutrophils # (Auto) 9.68 K/uL Lymphocytes # (Auto) 1.25 K/uL Monocytes # (Auto) 0.72 K/uL Eosinophils # (Auto) 0.04 K/uL Basophils # (Auto) 0.01 K/uL RDW Standard Deviation 43.4 fL RDW Coefficient of Variation 13.7 % Immature Granulocyte % (Auto) 0.8 % Immature Granulocyte # (Auto) 0.09 K/uL Sodium Level 134 mmol/L Potassium Level 4.2 mmol/L Chloride Level 95 mmol/L Carbon Dioxide Level 33 mmol/L Anion Gap 5.0 mmol/L Blood Urea Nitrogen 18 mg/dl Creatinine 1.18 mg/dl Est Creatinine Clear Calc Drug Dose 62.0 ml/min Estimated GFR () 57.2 Estimated GFR (Non- 49.4 BUN/Creatinine Ratio 15.5 Random Glucose 153 mg/dl Calcium Level 8.5 mg/dl Magnesium Level 1.9 mg/dl Test 03/24/18 11:27 Bedside Glucose 152 mg/dl Assessment and Plan 63yo female with possible sepsis, lumbar spine pain or infection or UTI transfer from [facility] in [place] due to severe RLE pain, fever to 101 degrees last evening, anorexia, and mild confusion was hospitalized from March 07 to March 09 at [facility] after having undergone L4/ L4 decompression/fusion surgery by Dr. Talha Lubin for large herniated disc at that level. She was readmitted to our hospital on March 13 for recurrent back pain/RLE pain/fever and found to have infected lumbar seroma as well as bacteremia. had RUE PICC placed, and discharged to home on 03/20/18 with a 6-week course of IV daptomycin. Possible sepsis UTI or possible recent spine procedure infection h/o diabetes mellitus, HTN, morbid obesity with BMI 43, and polymyalgia rheumatica on chronic prednisone Continue current antibiotics, orthopedic on the case, encephalopathy upon admission, which he was metabolic (fever, etc) and toxic ( pain medications). Mild acute/chronic anemia - Hb was 7.7 at [facility] prior to transfer. She was 8.1 a few days ago at [facility]. Today's 9.0 s/p 2 units pRBCs with improved H/H today. 2DM - appreciate pharmacy glycemic consult. Control improving. PMR on chronic steroids - she deserves stress dose steroids given #1. Prednisone changed to Hydrocortisone 25mg IV q8h on 03/22. Hold prednisone in meantime. Wean to q12h dosing today. HTN - controlled; continue home meds: h/o hypomagnesemia - recheck mag in am, morbid obesity with BM1>40, LE edema - likely 2nd to hypoalbuminemia, recent fluids during previous 2 hospital stays, etc. CTA chest at [facility] on 03/22 neg for PE and dopplers of both legs neg for DVT. Lasix 20mg IV x 1. CTA chest did not demonstrate CHF. RLE pain - radicular in nature from L-spine - defer pain control to orthopedics. Consider gabapentin or something similar. code status - level 1, full code Continued [facility] stay due to: fever, inadequate po fluid intake, inadequate oral pain control, ambulation difficulties, multiple IV medications needed Discharge planning: uncertain ([facility])
[2018-03-24] MEDS: HYDROmorphone INJ 0.5 MG/0.5 ML SYR IV PRN (15:11)
--- NOTE | 2018-03-24 16:33 | DIAGNOSTIC IMAGING REPORT ---
LUMBAR SPINE W/O CONTRAST CLINICAL HISTORY: 63 years-old Female presenting with back and leg pain, previous lumbar hematoma, complaining of right leg pain and numbness, difficulty walking, elevated temperature. TECHNIQUE: Multisequence, multiplanar MR imaging of the lumbar spine was performed without the use of intravenous contrast. IV contrast: None. COMPARISON: Plain radiographs from 03/14/2018. FINDINGS: Localizer images: Posterior fusion hardware at L4-5. Examination is limited by motion artifact degrading image quality. Postsurgical changes of bilateral transpedicular screw and gurvinder fixation of L4-5. Laminectomy defect of L4. There is an epidural collection in the laminectomy bed that demonstrates significant mass effect on the thecal sac with anterior and right lateral displacement of the cauda equina (series 7 image 20). The fluid collection measures 5.6 x 5.0 x 3.6 cm in maximal dimensions. Allowing for significant limitations in image quality, this does not confidently communicate with the thecal sac, though this is a possibility. Multiple foci of signal void may represent gas or antibiotic beads. There is an additional superficial fluid collection at the level of the incision site measuring 8.5 x 2.7 x 2.5 cm. Significance abnormal signal intensity within the operative bed both superficially and deep. Vertebral bodies at the nonoperative levels demonstrate normal height and alignment. Heterogeneous bone marrow going to fatty endplate changes. Intervertebral disc desiccation and height loss greatest at L2-3. The L5-S1 disc is preserved of degenerative change. Multilevel degenerative changes further detailed below: L1-2: No significant neural foraminal or spinal canal narrowing. L2-3: Minimal disc bulge and facet arthropathy do not significantly narrow the spinal canal. Minimal bilateral neural foraminal narrowing. L3-4: Disc bulge and facet arthropathy results in mild right and mild to moderate left neural foraminal narrowing. The epidural fluid collection results in moderate effacement of the posterior thecal sac (series 7 image 15) though CSF signal intensity is preserved. L4-5: Interbody spacer may be present. Fluid is noted subjacent to the disc annulus (series 4 image 8(. Severe stenosis of the thecal sac secondary to the epidural fluid collection (series 7 image 20). Vibration for neural foraminal narrowing limited by significant susceptibility artifact arising from hardware and postsurgical change. L5-S1: No significant neural foraminal or spinal canal narrowing. Spinal cord ends in good position at L1. Cauda equina crowding from L3-4 through L5 due to the epidural fluid collection. Remaining soft tissues within normal limits. IMPRESSION: 1. Epidural fluid collection in the laminectomy bed with significant mass effect on the thecal sac resulting in severe spinal canal stenosis. Correlate clinically to exclude cauda equina syndrome. This may represent a seroma with a pseudomeningocele considered less likely given the mass effect on the thecal sac. There appears to be gas versus antibiotic beads within this collection. 2. Postsurgical changes of bilateral transpedicular screw and gurvinder fixation of L4-5 with L4 laminectomy and interbody spacer. 3. Superficial fluid collection within the incision site. Sterility cannot be confirmed. 4. Multilevel degenerative changes as detailed above. The report will be called/faxed according to standard departmental protocol. Electronically signed by: Jacek Carpio M.D. 03/24/2018 4:32 PM Dictated Date/Time: 03/24/2018 4:22 PM
--- NOTE | 2018-03-24 16:58 | Progress Note ---
Progress Note Date of Service Mar 24, 2018. Progress Note Patient continued to complain of bilateral leg pain though her pain is better controlled now that she is in the hospital. Reviewed her MRI findings with her. I am concerned there is been reaccumulation of epidural fluid. In light of her pain and persistent temperatures we will will perform an I&D of the lumbar spine tomorrow. She has been made n.p.o. after midnight. She may shower tonight. She understands and agrees with this plan.
[2018-03-24] MEDS: TRIAMCINOLONE ACET NASAL SPRAY 10.8ML BTL NAE SCH (20:52)
[2018-03-24] MEDS: ATORVASTATIN 40 MG TAB PO SCH (20:54)
[2018-03-24] MEDS: EZETIMIBE 10MG TAB PO SCH (20:55)
[2018-03-24] MEDS ORDERED: INSULIN GLARGINE SOLOSTAR 100 UNITS/ML 3 ML PEN SC SCH (21:00)
[2018-03-25] VITALS (9 sets, daily range): BP systolic 131–171; BP diastolic 66–92; PULSE 76–88; TEMP 36.5–37.7; O2SAT 91–97
[2018-03-25] MEDS: OXYCODONE HCL IR 5 MG TAB (IMMEDIATE RELEASE) PO PRN ×2 (03:32→20:19)
[2018-03-25] MEDS: INSULIN ASPART 100 UNITS/ML 3 ML PEN SC SCH ×5 (06:28→21:00)
[2018-03-25] MEDS: HYDROmorphone INJ 0.5 MG/0.5 ML SYR IV PRN ×2 (06:42→21:33)
[2018-03-25] MEDS: VERAPAMIL HCL 240 MG TABCR PO SCH (08:32)
[2018-03-25] MEDS: POLYETHYLENE (MIRALAX) 17 GM PACK PO SCH (08:33)
[2018-03-25] MEDS: DULOXETINE HCL 60 MG CAP PO SCH (08:33)
[2018-03-25] MEDS: DOCUSATE SODIUM 100 MG CAP PO SCH ×2 (08:33→20:19)
[2018-03-25] MEDS: MULTIVITAMIN TAB PO SCH (08:34)
[2018-03-25] MEDS: MAGNESIUM OXIDE 400 MG TAB PO SCH ×2 (08:34→20:20)
[2018-03-25] MEDS: PANTOprazole SOD 40 MG TAB PO SCH (08:34)
[2018-03-25] MEDS: CALCIUM 600MG + VIT D 400 IU TAB PO SCH (08:34)
[2018-03-25] MEDS: DAPTOmycin IV 500 MG in SYRINGE 0 ML IV SCH (08:41)
[2018-03-25] MEDS ORDERED: INSULIN GLARGINE SOLOSTAR 100 UNITS/ML 3 ML PEN SC SCH (09:00)
[2018-03-25] MEDS: HYDROCORTISONE IV 25 MG in SYRINGE 0 ML IV SCH (11:39)
[2018-03-25] MEDS ORDERED: PROPOFOL IV EMULSION 10 MG/ML 20 ML VIAL ONE ×3 (13:11→15:40)
[2018-03-25] MEDS ORDERED: MIDAZOLAM HCL 1 MG/ML 2ML VIAL ONE (13:11)
[2018-03-25] MEDS ORDERED: LIDOCAINE HCL 2% 2 ML VIAL (20MG/ML) ONE (13:11)
[2018-03-25] MEDS ORDERED: FENTANYL CITRATE INJ 50 MCG/1 ML 2 ML VIAL ONE ×2 (13:11→15:36)
[2018-03-25] MEDS ORDERED: BACITRACIN 50000 UNIT VIAL ONE (13:28)
[2018-03-25] MEDS ORDERED: BUPIVACAINE/EPINEPHRINE 0.5% MPF 1:200,000 30 ML VIAL ONE (13:28)
[2018-03-25] MEDS ORDERED: EpHEDrine SULFATE INJ 50 MG/ML AMP IV PRN (13:30)
[2018-03-25] MEDS ORDERED: ONDANSETRON INJ 2 MG/ML 2 ML VIAL IV PRN ×2 (13:30→15:30)
[2018-03-25] MEDS ORDERED: HYDROmorphone INJ 1 MG/ML SYR IV PRN (13:30)
[2018-03-25] MEDS ORDERED: ATROPINE SULFATE 0.1 MG/ML 5ML SYR IV PRN (13:30)
[2018-03-25] MEDS ORDERED: PHENYLEPHRINE 100MCG/ML 5ML SYR IV PRN (13:30)
[2018-03-25] MEDS ORDERED: PROMETHAZINE HCL INJ 12.5 MG in SODIUM CHLORIDE 0.9% 50ML 50 ML IV PRN (13:30)
--- NOTE | 2018-03-25 13:59 | Pharmacy Progress Note ---
Glycemic: Assessment & Plan Date of Service Mar 25, 2018. Assessment & Plan The patient is currently receiving 104 units of insulin per day. BSGs ranging 89 - 153 mg/dl over the past 24hrs. Patient's blood sugar has much improved. Given continued decline in AM fasting glucose and NPO status, I decreased this morning's latus dose by 50% and placed a scale based on BSG for this evening's dose. The patient was made NPO after midnight yesterday for I&D today, but anticipate diet to resume soon after. I also loosened the CR/CF. * Basal insulin: Lantus 20 units this morning, then per scale this evening based on BSG * Correctional Insulin: Novolog Correction per scale ACHS, 0000&0400 Goal Range: Low 110 mg/dL - High 140 mg/dL Correction Factor: 20 mg/dL/unit * Prandial insulin: Per carb ratio of 1 unit per 7 grams CHO consumed Pharmacy will continue to monitor patient daily and write orders per [facility] inpatient glycemic control protocol. Thanks. * Please note that the plan above was derived based on current level of insulin resistance and hospital stress. These recommendations are appropriate for inpatient admission only. Plan of care upon discharge will need to be reassessed to avoid potential outpatient hypo/hyperglycemia.
--- NOTE | 2018-03-25 14:20 | Progress Note ---
Subjective Date of Service: Mar 25, 2018. Subjective Pt evaluation today including: conversation w/ patient, physical exam, chart review, lab review, review of studies, conversation w/ market research consultant, review of inpatient medication list Voiding: no voiding problems Out of bed to the chair, pleasant, talk over the phone, conversational, no obvious complaint, lower extremity 2-3+ edema which is not new Review of Systems Constitutional: No fever, No chills, No sweats, No weight loss, No weakness, No fatigue, No problem reported Eyes: No worsening of vision, No eye pain, No redness, No discharge, No diplopia ENT: No hearing loss, No unusual epistaxis, No nasal symptoms, No sore throat, No tinnitus, No dental problems, No trouble swallowing Respiratory: + shortness of breath, No cough, No sputum, No wheezing, No dyspnea on exertion, No dyspnea at rest, No hemoptysis Cardiac: + edema (2-3+ edema), No chest pain, No orthopnea, No PND, No claudication, No palpitations Abdomen: No pain, No nausea, No vomiting, No diarrhea, No constipation Musculoskeletal: No joint pain, No muscle pain, No swelling, No calf pain Female : No dysuria, No urinary frequency, No hematuria, No incontinence, No abnormal vaginal bleeding, No vaginal discharge Neurologic: No memory loss, No paralysis, No weakness, No numbness/tingling, No vertigo, No balance problems Psychiatric: No depression symptoms, No anhedonism, No anxiety, No insomnia, No substance abuse Heme: No abnormal bleeding/bruising, No clotting problems, No swollen lymph nodes, No night sweats Endo: No fatigue, No excessive thirst, No excessive urination Skin: No rash, No itch, No new/changing skin lesions, No color change, No bleeding Objective Vital Signs Date Time Temp Pulse Resp B/P (MAP) Pulse Ox O2 Delivery O2 Flow Rate FiO2 03/25/18 12:56 37.2 84 16 151/55 (87) 95 Room Air 03/25/18 10:40 37.7 76 20 152/75 (100) 95 Room Air 03/25/18 08:00 Room Air 03/25/18 07:12 37.2 88 20 171/80 (110) 93 Room Air 03/25/18 03:30 36.8 88 20 166/77 (106) 97 Nasal Cannula 2.0 03/24/18 23:59 Nasal Cannula 2.0 03/24/18 23:30 37.3 77 20 150/60 (90) 98 Nasal Cannula 2.0 03/24/18 19:22 36.4 79 20 162/88 (112) 95 Room Air 03/24/18 16:25 36.7 85 18 151/93 (112) 91 Room Air 03/24/18 16:00 91 Room Air Physical Exam General Appearance: WD/WN, no apparent distress, + obese Eyes: normal inspection, PERRL, EOMI, sclerae normal ENT: normal ENT inspection, hearing grossly normal, pharynx normal Neck: supple, no adenopathy, thyroid normal, no JVD, no carotid bruits, trachea midline Respiratory/Chest: chest non-tender, lungs clear, normal breath sounds, no respiratory distress, no accessory muscle use, + decreased breath sounds Cardiovascular: regular rate, rhythm, no edema, no gallop, no JVD, no murmur Abdomen: normal bowel sounds, non tender, soft, no organomegaly, no pulsatile mass Extremities: normal range of motion, non-tender, normal inspection, no pedal edema, no calf tenderness, normal capillary refill, pelvis stable, + swelling (2 -3+ edema) Neurologic/Psychiatric: operator technician II-XII nml as tested, no motor/sensory deficits, alert, normal mood/affect, oriented x 3 Skin: normal color, warm/dry, no rash Lymphatic: no adenopathy Laboratory Results Last 24 Hours Test 03/24/18 16:27 03/24/18 21:33 03/25/18 06:24 03/25/18 11:41 Bedside Glucose 89 mg/dl 97 mg/dl 117 mg/dl 89 mg/dl Assessment and Plan 63yo female with possible sepsis, lumbar spine pain or infection, or UTI transfer from [facility] due to severe RLE pain, fever was up to to 101, so far no spiking fever pt was hospitalized from March 07 to March 09 at [facility] after having undergone L4/L4 decompression/fusion surgery by Dr. Talha Lubin for large herniated disc at that level. She was readmitted to our hospital on March 13 for recurrent back pain/RLE pain/fever and found to have infected lumbar seroma as well as bacteremia. had RUE PICC placed, and discharged to home on 03/20/18 with a 6- week course of IV daptomycin. Possible sepsis upon admission UTI or possible recent spine procedure infection h/o diabetes mellitus, HTN, morbid obesity with BMI 43, and polymyalgia rheumatica on chronic prednisone Continue current antibiotics infectious disease and primary team, currently on daptomycin IV encephalopathy upon admission, which he was metabolic (fever, etc) and toxic ( pain medications). Totally resolved Mild acute/chronic anemia - Hb was 7.7 at [facility] prior to transfer. She was 8.1 a few days ago at [facility]. Was up to 9.0, no lab today s/p 2 units pRBCs with improved H/H DMII - appreciate pharmacy glycemic consult. Control improving. Blood glucose around 80s-150 it is acceptable, PMR on chronic steroids - she deserves stress dose steroids given #1. Prednisone changed to Hydrocortisone 25mg IV q8h on 03/22. Hold prednisone in meantime. can change to oral tomorrow HTN - controlled; continue home meds: h/o hypomagnesemia - recheck mag in am, morbid obesity with BM1>40 LE edema - likely 2nd to hypoalbuminemia, recent fluids during previous 2 hospital stays, will consider lasix po after procedure CTA chest at [facility] on 03/22 neg for PE and dopplers of both legs neg for DVT. CTA chest did not demonstrate CHF. code status - level 1, full code Continued [facility] stay due to: fever, inadequate po fluid intake, inadequate oral pain control, ambulation difficulties, multiple IV medications needed Discharge planning: uncertain (family requesting [facility] following this admission)
[2018-03-25] MEDS ORDERED: GENTAMICIN SULFATE 40 MG/ML 2 ML VIAL ONE (14:23)
[2018-03-25] MEDS ORDERED: VANCOMYCIN HCL 1000MG/20ML VIAL ONE (14:23)
--- NOTE | 2018-03-25 14:24 | History & Physical Bridge Note ---
H&P Re-Evaluation Bridge Note: I have examined the patient, reviewed the History & Physical and in the interval since the performance of the History & Physical I have noted the following changes of clinical significance: No changes noted I&D lumbar spine with placement of stimulan and beads
--- NOTE | 2018-03-25 15:29 | [facility] Operative Report ---
Operative Report Operative Date Mar 25, 2018. Pre-Operative Diagnosis Seroma L4-L5 lumbar wound Post-Operative Diagnosis same Procedure(s) Performed 1. I&D evacuation of seroma L4-5 lumbar spine. #2 revision decompression L4-5. #3 placement of stimulant beads L4-5. Surgeon Dr Lubin Field Hauler Surgeon(s) Sisi Bhakta PA-C Estimated Blood Loss 5 ml Findings Epidural seroma Specimens routine C&S and anerobic cultures- lumbar fluid Anesthesia Type General Description of Procedure She was met with preoperatively case discussed all questions addressed. After informed consent obtained patient was taken to the operative suite under prone position the Omar table on top of the Chu frame. All bony prominences were well-padded eyes inspected to ensure no external pressure. This point the lumbar spine was prepped and draped in normal sterile fashion. Sharp dissection with the assistance of Bovie cautery was performed down to the fascial layer. This was excised and a significant amount of seroma fluid was evacuated. I then performed a revision decompression involving the superior L5 lamina to adequately relieve all fluid. I did not extend the medial facetectomy of L4-5 on the left. Again the tissues looked healthy. There is no evidence of purulence. I did evacuate the previous stimulant beads which were already undergoing breakdown. The incision was copiously irrigated with antibiotic solution. Another 10 cc of stimulant be with Vanco and gentamicin were placed. A 19 round YONI drain inserted. Incision was then closed with 1 Vicryl fascia 2-0 Vicryl subcutaneous and 4 Monocryl for fashion closure Steri- Strips sterile dressings placed. Patient will continue PACU stable condition. Please note Anna Bhakta was present throughout the entire procedure involved in positioning complex portions of the surgery and final skin closure. I attest to the content of the Intraoperative Record and any orders documented therein. Any exceptions are noted below.
[2018-03-25] MEDS ORDERED: MAGNESIUM HYDROXIDE SUSP 30 ML UDC PO PRN (15:30)
[2018-03-25] MEDS ORDERED: DO NOT ADMINISTER PNEUMOCOCCAL VACCINE PRN (15:30)
[2018-03-25] MEDS ORDERED: DO NOT ADMINISTER FLU VACCINE PRN (15:30)
[2018-03-25] MEDS ORDERED: LORAZEPAM INJ 1 MG in SYRINGE 0.5 ML IV PRN (15:30)
[2018-03-25] MEDS ORDERED: ACETAMINOPHEN 325 MG TAB PO PRN (15:30)
[2018-03-25] MEDS ORDERED: ACETAMINOPHEN 500 MG TAB PO PRN (15:30)
[2018-03-25] MEDS ORDERED: ROCURONIUM BROMIDE 10 MG/ML 5 ML VIAL ONE (15:34)
[2018-03-25] MEDS ORDERED: GLYCOPYRROLATE INJ 0.2 MG/ML VIAL ONE (15:34)
[2018-03-25] MEDS ORDERED: NEOSTIGMINE METHYLSULFATE 5 MG/5 ML SYR ONE (15:34)
[2018-03-25] MEDS ORDERED: FLOSEAL HEMOSTATIC MATRIX 10ML TOP ONE (15:43)
[2018-03-25] MEDS: FENTANYL CITRATE INJ 50 MCG/1 ML 2 ML VIAL IV PRN ×4 (16:20→16:48)
[2018-03-25] MEDS ORDERED: HYDROmorphone INJ 2 MG/ML SYR/VIAL ONE (16:57)
--- NOTE | 2018-03-25 17:25 | Anesthesiology Progress Note ---
Anesthesia Post Op Note Date & Time Mar 25, 2018 at 17:24 Vital Signs Pain Intensity: 4 Vital Signs Past 12 Hours Date Time Temp Pulse Resp B/P (MAP) Pulse Ox O2 Delivery O2 Flow Rate FiO2 03/25/18 17:10 36.4 78 17 165/78 97 Nasal Cannula 2 03/25/18 16:08 37.2 77 16 177/82 99 Oxymask 10 03/25/18 12:56 37.2 84 16 151/55 (87) 95 Room Air 03/25/18 10:40 37.7 76 20 152/75 (100) 95 Room Air 03/25/18 08:00 Room Air 03/25/18 07:12 37.2 88 20 171/80 (110) 93 Room Air Notes Mental Status: alert / awake / arousable, participated in evaluation Pt Amnestic to Procedure: Yes Nausea / Vomiting: adequately controlled Pain: adequately controlled Airway Patency, RR, SpO2: stable & adequate BP & HR: stable & adequate Hydration State: stable & adequate Anesthetic Complications: no major complications apparent Pt doing well. BG was 75, pt was asymptomatic. 2 cups of cranberry juice given. VSS.
[2018-03-25] MEDS: SODIUM CHLORIDE 0.9% 1000ML 1,000 ML IV SCH (18:37)
[2018-03-25] MEDS: LORAZEPAM 1 MG TAB PO PRN (20:19)
[2018-03-25] MEDS: TRIAMCINOLONE ACET NASAL SPRAY 10.8ML BTL NAE SCH (20:20)
[2018-03-25] MEDS: ATORVASTATIN 40 MG TAB PO SCH (20:20)
[2018-03-25] MEDS: EZETIMIBE 10MG TAB PO SCH (20:21)
[2018-03-25] MEDS: INSULIN GLARGINE SOLOSTAR 100 UNITS/ML 3 ML PEN SC SCH (21:32)
[2018-03-26] MEDS: CARBOHYDRATES FOR HYPOGLYCEMIA PO PRN ×2 (00:03→00:28)
[2018-03-26] MEDS: HYDROCORTISONE IV 25 MG in SYRINGE 0 ML IV SCH (00:04)
[2018-03-26 03:45] VITALS: BP 146/71; PULSE 85; TEMP 37.1; O2SAT 95
[2018-03-26] MEDS: INSULIN ASPART 100 UNITS/ML 3 ML PEN SC SCH ×6 (04:00→20:56)
[2018-03-26] MEDS: OXYCODONE HCL IR 5 MG TAB (IMMEDIATE RELEASE) PO PRN ×2 (04:56→11:54)
[2018-03-26] MEDS: SODIUM CHLORIDE 0.9% 1000ML 1,000 ML IV SCH (05:35)
[2018-03-26 05:41] LABS: BASO % 0.2 %; BASO ABS # 0.03 K/uL (0-0.2); EOS % 0.2 %; EOS ABS # 0.03 K/uL (0-0.5); HEMATOCRIT 30.4 % (37-47); HEMOGLOBIN 9.8 g/dL (12.0-16.0); IG# 0.06 K/uL (0.00-0.02); LYMPH % 13.4 %; LYMPH ABS # 1.64 K/uL (1.2-3.4); MEAN CELL VOLUME 89.1 fL (80-100); MEAN CORPUSCULAR HEMOGLOBIN 28.7 pg (25-34); MEAN CORPUSCULAR HGB CONC 32.2 g/dl (32-36); MONO % 8.8 %; MONO ABS # 1.08 K/uL (0.11-0.59); NEUT % 76.9 %; NEUT ABS # 9.42 K/uL (1.4-6.5); PLATELET COUNT 443 K/uL (130-400); RED CELL DISTRIBUTION WIDTH CV 13.5 % (11.5-14.5); RED CELL DISTRIBUTION WIDTH SD 44.2 fL (36.4-46.3); WHITE BLOOD COUNT 12.26 K/uL (4.8-10.8)
[2018-03-26 06:07] LABS: CALCIUM 8.5 mg/dl (8.5-10.1); CREATININE 0.97 mg/dl (0.60-1.20)
[2018-03-26 07:21] VITALS: BP 139/75; PULSE 94; TEMP 37.2; O2SAT 90
[2018-03-26 08:10] VITALS: O2SAT 90
[2018-03-26] MEDS: DAPTOmycin IV 500 MG in SYRINGE 0 ML IV SCH (08:31)
[2018-03-26] MEDS: VERAPAMIL HCL 240 MG TABCR PO SCH (08:32)
[2018-03-26] MEDS: MULTIVITAMIN TAB PO SCH (08:32)
[2018-03-26] MEDS: PANTOprazole SOD 40 MG TAB PO SCH (08:32)
[2018-03-26] MEDS: CALCIUM 600MG + VIT D 400 IU TAB PO SCH (08:33)
[2018-03-26] MEDS: DULOXETINE HCL 60 MG CAP PO SCH (08:33)
[2018-03-26] MEDS: DOCUSATE SODIUM 100 MG CAP PO SCH ×2 (08:33→20:57)
[2018-03-26] MEDS: MAGNESIUM OXIDE 400 MG TAB PO SCH ×2 (08:34→20:58)
[2018-03-26] MEDS ORDERED: INSULIN GLARGINE SOLOSTAR 100 UNITS/ML 3 ML PEN SC ONE (09:00)
--- NOTE | 2018-03-26 11:22 | Hospitalist Progress Note ---
Hospitalist Progress Note Date of Service Mar 26, 2018. Subjective Pt evaluation today including: conversation w/ patient, physical exam, chart review, lab review, review of inpatient medication list Pain: 03/18 sharp back pain PO Intake: Tolerating PO diet Voiding: no voiding problems Patient reports feeling better. She states her back pain is improving since surgery yesterday and it no longer radiates down her legs. She is tolerating a PO diet. Her Lin was removed this morning, and she initially had some dysuria but this is now clearing up. She moved her bowels this morning. The patient denies fevers, chills, sweats, chest pain, palpitations, claudication, cough, wheezing, shortness of breath, nausea, vomiting, abdominal pain, hematuria, urinary retention, paralysis, weakness, acute numbness and tingling. Additional Comments: See HPI for pertinent positives and negatives. All other systems reviewed and negative. Objective Vital Signs Date Time Temp Pulse Resp B/P (MAP) Pulse Ox O2 Delivery O2 Flow Rate FiO2 03/26/18 08:10 90 Room Air 03/26/18 07:21 37.2 94 18 139/75 (96) 90 Room Air 03/26/18 03:45 37.1 85 20 146/71 (96) 95 Room Air 03/25/18 23:15 36.9 81 16 131/66 (87) 94 Room Air 03/25/18 20:57 37.2 80 18 150/79 (102) 95 Room Air 03/25/18 20:10 Room Air 03/25/18 20:02 37.1 83 16 149/72 (97) 91 Room Air 03/25/18 18:52 36.5 82 16 148/82 (104) 92 Room Air 03/25/18 18:20 36.9 82 20 142/92 (109) 94 Room Air 03/25/18 17:53 Nasal Cannula 2.0 03/25/18 17:50 36.9 82 20 148/76 (100) 97 Nasal Cannula 2.0 03/25/18 17:38 81 97 03/25/18 17:38 81 03/25/18 17:33 77 14 97 03/25/18 17:33 78 14 03/25/18 17:32 147/76 03/25/18 17:28 77 19 96 03/25/18 17:28 77 19 7/17/18 17:27 166/79 7/17/18 17:23 77 14 96 7/17/18 17:23 77 14 7/17/18 17:22 163/80 7/17/18 17:20 76 16 163/80 97 Nasal Cannula 2 7/17/18 17:18 77 17 97 7/17/18 17:18 77 17 7/17/18 17:17 167/78 7/17/18 17:13 77 19 7/17/18 17:13 77 19 96 7/17/18 17:12 165/78 7/17/18 17:10 36.4 78 17 165/78 97 Nasal Cannula 2 7/17/18 17:08 77 19 7/17/18 17:08 77 19 96 7/17/18 17:07 163/80 7/17/18 17:03 80 15 7/17/18 17:03 80 15 97 7/17/18 17:02 165/79 7/17/18 16:58 80 19 7/17/18 16:58 79 19 97 7/17/18 16:57 154/76 7/17/18 16:54 166/82 7/17/18 16:53 81 17 7/17/18 16:53 81 17 98 7/17/18 16:52 183/105 7/17/18 16:48 78 17 97 7/17/18 16:48 78 17 7/17/18 16:46 168/89 7/17/18 16:43 79 14 7/17/18 16:43 77 14 96 7/17/18 16:41 185/78 7/17/18 16:38 77 17 7/17/18 16:38 76 17 96 7/17/18 16:36 182/86 7/17/18 16:33 78 11 97 7/17/18 16:33 78 11 7/17/18 16:32 170/87 7/17/18 16:28 79 14 96 7/17/18 16:28 79 14 7/17/18 16:27 185/91 7/17/18 16:23 81 18 189/94 100 7/17/18 16:23 79 18 7/17/18 16:21 189/94 7/17/18 16:18 80 22 7/17/18 16:18 80 22 100 7/17/18 16:17 188/108 03/25/18 16:13 77 17 99 03/25/18 16:13 77 17 03/25/18 16:12 177/79 03/25/18 16:08 80 19 177/82 98 18 16:08 37.2 77 16 177/82 99 Oxymask 10 03/25/18 16:08 81 19 03/25/18 12:56 37.2 84 16 151/55 (87) 95 Room Air Physical Exam Notes: General appearance: +Morbidly obese. Well-developed, well-nourished, no apparent distress Head: Normocephalic, atraumatic Eyes: Normal inspection, PERRL, EOMI ENT: Normal ENT inspection, hearing grossly normal, pharynx normal Neck: Supple, no JVD, trachea midline Respiratory/Chest: Lungs clear to auscultation, normal breath sounds, no respiratory distress Cardiovascular: Regular rate & rhythm, no gallop, no murmur Abdomen/GI: Normal bowel sounds, non-tender, soft Extremities/Musculoskeletal: +Drain place. 2+ pitting edema. Normal inspection , no calf tenderness Neurological/Psych: Alert, normal mood/affect, oriented x 3 Skin: Normal color, warm/dry, no rash Laboratory Results Last 24 Hours Test 03/25/18 11:41 03/25/18 16:26 03/25/18 18:00 03/25/18 20:45 Bedside Glucose 89 mg/dl 75 mg/dl 87 mg/dl 139 mg/dl Test 03/25/18 23:58 03/26/18 00:25 03/26/18 00:46 03/26/18 01:13 Bedside Glucose 62 mg/dl 60 mg/dl 62 mg/dl 78 mg/dl Test 03/26/18 03:43 03/26/18 05:19 03/26/18 08:10 Bedside Glucose 77 mg/dl 185 mg/dl White Blood Count 12.26 K/uL Red Blood Count 3.41 M/uL Hemoglobin 9.8 g/dL Hematocrit 30.4 % Mean Corpuscular Volume 89.1 fL Mean Corpuscular Hemoglobin 28.7 pg Mean Corpuscular Hemoglobin Concent 32.2 g/dl Platelet Count 443 K/uL Mean Platelet Volume 8.0 fL Neutrophils (%) (Auto) 76.9 % Lymphocytes (%) (Auto) 13.4 % Monocytes (%) (Auto) 8.8 % Eosinophils (%) (Auto) 0.2 % Basophils (%) (Auto) 0.2 % Neutrophils # (Auto) 9.42 K/uL Lymphocytes # (Auto) 1.64 K/uL Monocytes # (Auto) 1.08 K/uL Eosinophils # (Auto) 0.03 K/uL Basophils # (Auto) 0.03 K/uL RDW Standard Deviation 44.2 fL RDW Coefficient of Variation 13.5 % Immature Granulocyte % (Auto) 0.5 % Immature Granulocyte # (Auto) 0.06 K/uL Sodium Level 134 mmol/L Potassium Level 4.0 mmol/L Chloride Level 97 mmol/L Carbon Dioxide Level 33 mmol/L Anion Gap 4.0 mmol/L Blood Urea Nitrogen 15 mg/dl Creatinine 0.97 mg/dl Est Creatinine Clear Calc Drug Dose 74.1 ml/min Estimated GFR () 72.5 Estimated GFR (Non- 62.6 BUN/Creatinine Ratio 15.1 Random Glucose 153 mg/dl Calcium Level 8.5 mg/dl Phosphorus Level 4.0 mg/dl Magnesium Level 1.8 mg/dl Assessment and Plan 63 y/o female with a history of HTN, HLD, DM II, temporal arteritis and PMR on chronic prednisone, and neuropathy who [facility] with fever, confusion, and severe RLE pain. Pt underwent recent lumbar decompression /fusion about 3 weeks ago, then a few days later readmitted for infected lumbar seroma and bacteremia that was treated with daptomycin. Pt then discharged w/6 week course of dapto. Presented to [place] ER on 03/22 w/what appears to be sepsis. Sepsis due to recurrent lumbar seroma vs recurrent bacteremia vs UTI vs other-- resolving -Called OSH, blood cultures NGTD x 2 sets -Continue daptomycin IV for coag neg staph bacteremia/lumbar spine infection -MRI shows epidural fluid collection in laminectomy bed w/significant mass effect on thecal sac resulting in severe spinal canal stenosis. -S/p I&D evacuation of seroma and revision of decompression w/Dr. Lubin on . Culture NGTD -Surgical management/DVT ppx per ortho -Pain much relieved after evacuation of seroma Metabolic and/or toxic encephalopathy--resolved -Zanaflex on hold -Oxycodone restarted per ortho 03/25 -Continue prn Dilaudid for severe pain Acute on chronic anemia secondary to blood loss in postop setting--stable -Hgb 9.8 on 03/26, up from 9.0 -S/p 2 units PRBC -Continue to monitor HTN, HLD--stable -Continue verapamil 240 mg PO qd, Lipitor 40 mg PO qd and Zetia 10 mg PO qd DM II--HgbA1c 9.6 on 03/08/18 -Pharmacy consulted for glycemic control -Hypoglycemic overnight with BSGs in 60s, now improved. Insulin decreased -Lantus per sliding scale -Insulin sliding scale -Check BSGs q ac and qhs. Additional checks added at 0000 and 0400 Temporal arteritis/PMR on chronic steroids--stable -D/C hydrocortisone 25 mg IV q12h -Prednisone 15 mg PO qd x 2 days, then back to home dose (11 mg PO qd) -Follows w/Dr. Pope Neuropathy -Continue Cymbalta 60 mg PO qd Code Status -Level I, FULL RESUSCITATION STATUS
--- NOTE | 2018-03-26 13:13 | Progress Note ---
Progress Note Date of Service Mar 26, 2018. Progress Note Back pain is improving leg pain markedly improved vital signs stable. On exam she is sitting up in the chair at the bedside is good strength testing. She still significant swelling to the lower extremities. But motor is intact. Assessment status post I&D. Plan at this time will continue to monitor YONI output. She is hoping to transfer to [facility] the next few days.
[2018-03-26] MEDS ORDERED: hydrOXYzine HCL 25 MG TAB PO PRN (13:15)
[2018-03-26] MEDS: HYDROmorphone INJ 0.5 MG/0.5 ML SYR IV PRN (13:29)
--- NOTE | 2018-03-26 13:41 | Pharmacy Progress Note ---
Glycemic: Assessment & Plan Date of Service Mar 26, 2018. Assessment & Plan The patient is currently receiving 49 units of insulin per day. BSGs ranging 60 - 185 mg/dl over the past 24hrs. Despite total daily dose of insulin decreasing by more than 50% yesterday, the patient did experience a low overnight. Therefore will place a minimal scale based on BSG for this evening with midnight and 0400 checks to assess. The carb ratio was also loosened. It is noted that the patient will start on oral prednisone tomorrow morning, so will expect to see an increase in BSGs based on this. * Basal insulin: Lantus 20 units this morning then scale per BSG for this evenings dose (if BSG < 101, give 0 units; if BSG 101-180, give 5 units ; if BSG >180, give 10 units) * Correctional Insulin: Novolog Correction per scale ACHS & 0000,0400 Goal Range: Low 110 mg/dL - High 140 mg/dL Correction Factor: 20 mg/dL/unit * Prandial insulin: Per carb ratio of 1 unit per 10 grams CHO consumed Pharmacy will continue to monitor patient daily and write orders per [facility] inpatient glycemic control protocol. Thanks. * Please note that the plan above was derived based on current level of insulin resistance and hospital stress. These recommendations are appropriate for inpatient admission only. Plan of care upon discharge will need to be reassessed to avoid potential outpatient hypo/hyperglycemia.
[2018-03-26 15:22] VITALS: BP 136/79; PULSE 72; TEMP 36.8; O2SAT 98
[2018-03-26 16:07] VITALS: BP 151/72; PULSE 79; TEMP 37.2; O2SAT 92
[2018-03-26] MEDS: INSULIN GLARGINE SOLOSTAR 100 UNITS/ML 3 ML PEN SC SCH (20:57)
[2018-03-26] MEDS: EZETIMIBE 10MG TAB PO SCH (20:57)
[2018-03-26] MEDS: ATORVASTATIN 40 MG TAB PO SCH (20:57)
[2018-03-26] MEDS: TRIAMCINOLONE ACET NASAL SPRAY 10.8ML BTL NAE SCH (20:58)
[2018-03-26 23:15] VITALS: BP 145/79; PULSE 84; TEMP 37.4; O2SAT 94
[2018-03-27] MEDS: INSULIN ASPART 100 UNITS/ML 3 ML PEN SC SCH ×6 (00:15→21:24)
[2018-03-27 05:51] LABS: HEMATOCRIT 29.7 % (37-47); HEMOGLOBIN 9.5 g/dL (12.0-16.0); MEAN CELL VOLUME 88.4 fL (80-100); MEAN CORPUSCULAR HEMOGLOBIN 28.3 pg (25-34); MEAN PLATELET VOLUME 8.1 fL (7.4-10.4); PLATELET COUNT 401 K/uL (130-400); RED CELL DISTRIBUTION WIDTH CV 13.3 % (11.5-14.5); RED CELL DISTRIBUTION WIDTH SD 43.2 fL (36.4-46.3); WHITE BLOOD COUNT 12.46 K/uL (4.8-10.8)
[2018-03-27] MEDS ORDERED: BISACODYL 10 MG SUPP PR PRN (06:00)
[2018-03-27] MEDS ORDERED: BISACODYL 5 MG TABEC PO PRN (06:00)
[2018-03-27 06:31] LABS: CALCIUM 8.7 mg/dl (8.5-10.1); CREATININE 0.92 mg/dl (0.60-1.20); POTASSIUM 3.7 mmol/L (3.5-5.1)
[2018-03-27 07:56] VITALS: BP 153/77; PULSE 84; TEMP 37.1; O2SAT 93
--- NOTE | 2018-03-27 08:23 | Progress Note ---
Progress Note Date of Service Mar 27, 2018. Progress Note Patient's back pain is controlled leg symptoms markedly improved. She is feeling better. Vital signs are stable. On exam she is in the chair at the bedside is good strength testing. There is perhaps some modest improvement of her swelling. Assessment status post I&D. Plan at this time we are hoping for rehab placement tomorrow. YONI drain.
--- NOTE | 2018-03-27 08:59 | Pharmacy Progress Note ---
Pharmacy Glycemic Short Note 2 Date of Service Mar 27, 2018. OUTPATIENT ANTIDIABETIC REGIMEN: * Lantus 40 units SQ BID * Novolog 15 units TID with meals + SS Test 03/26/18 12:00 03/26/18 17:22 03/26/18 20:17 03/26/18 20:47 Bedside Glucose 74 mg/dl (70-90) 86 mg/dl (70-90) 353 mg/dl (70-90) 303 mg/dl (70-90) Test 03/27/18 00:06 03/27/18 03:25 03/27/18 05:26 Bedside Glucose 240 mg/dl (70-90) 177 mg/dl (70-90) Random Glucose 134 mg/dl (70-99) ASSESSMENT: * Blood sugars up last evening d/t adjusting regimen for low the evening before. Patient requiring about 49 units of insulin per day, will adjust Lantus so that she will get 10 units SQ BID for BSG in range. * Steroids changed to Prednisone 15mg PO QAM, which will likely have greater effect on BSGs than IV Hydrocortisone, will tighten CR. * Plan to go to rehab tomorrow. PLAN FOR INPATIENT GLYCEMIC CONTROL: * Basal insulin - CHANGE * Lantus SQ BID * BSG < 101mg/dl - 0 units * BSG 101-180mg/dl - 10 units * BSG > 180mg/dl - 15 units * Bolus insulin * NovoLog per scale ACHS or Q6hrs while NPO * Goal Range: Low 110 mg/dL - High 140 mg/dL * Correction Factor: 20 mg/dL/unit * TIGHTEN: Nutritional / Prandial insulin per carb ratio of 1 unit per 7 grams CHO consumed PLAN FOR DISCHARGE: * Follow up with outpatient provider, A1c 9.6% above goal, needs insulin adjustments based on home use
[2018-03-27] MEDS: CALCIUM 600MG + VIT D 400 IU TAB PO SCH (09:06)
[2018-03-27] MEDS: DULOXETINE HCL 60 MG CAP PO SCH (09:06)
[2018-03-27] MEDS: PANTOprazole SOD 40 MG TAB PO SCH (09:06)
[2018-03-27] MEDS: DOCUSATE SODIUM 100 MG CAP PO SCH ×2 (09:06→21:20)
[2018-03-27] MEDS: MULTIVITAMIN TAB PO SCH (09:06)
[2018-03-27] MEDS: VERAPAMIL HCL 240 MG TABCR PO SCH (09:07)
[2018-03-27] MEDS: MAGNESIUM OXIDE 400 MG TAB PO SCH ×2 (09:07→21:20)
[2018-03-27] MEDS: POLYETHYLENE (MIRALAX) 17 GM PACK PO SCH (09:08)
[2018-03-27] MEDS: OXYCODONE HCL IR 5 MG TAB (IMMEDIATE RELEASE) PO PRN ×3 (09:13→21:32)
[2018-03-27] MEDS: DAPTOmycin IV 500 MG in SYRINGE 0 ML IV SCH (09:13)
[2018-03-27] MEDS: INSULIN GLARGINE SOLOSTAR 100 UNITS/ML 3 ML PEN SC SCH ×2 (09:26→21:24)
[2018-03-27 09:59] VITALS: O2SAT 93
--- NOTE | 2018-03-27 11:12 | Hospitalist Progress Note ---
Hospitalist Progress Note Date of Service Mar 27, 2018. Subjective Pt evaluation today including: conversation w/ patient, physical exam, chart review, lab review, review of inpatient medication list Patient reports feeling well. She still has some pain at her back surgical site and in her thighs, but this is much improved compared to admission. She is trying to get up and ambulate more. She is tolerating a PO diet, voiding without difficulty, passing gas and moving her bowels. She does note some mild diffuse abdominal pain which she attributes to gas pains. The patient denies fevers, chills, sweats, chest pain, palpitations, claudication, cough, wheezing , shortness of breath, nausea, vomiting, dysuria, hematuria, urinary retention, paralysis, weakness, numbness and tingling. Additional Comments: See HPI for pertinent positives and negatives. All other systems reviewed and negative. Objective Vital Signs Date Time Temp Pulse Resp B/P (MAP) Pulse Ox O2 Delivery O2 Flow Rate FiO2 03/27/18 09:59 93 Room Air 03/27/18 07:56 37.1 84 18 153/77 (102) 93 Room Air 03/27/18 07:45 Room Air 03/27/18 00:05 Room Air 03/26/18 23:15 37.4 84 20 145/79 (101) 94 Room Air 03/26/18 16:07 37.2 79 15 151/72 (98) 92 Room Air 03/26/18 15:22 36.8 72 18 136/79 (98) 98 Room Air 03/26/18 15:20 Room Air Physical Exam Notes: General appearance: +Morbidly obese. Well-developed, well-nourished, no apparent distress Head: Normocephalic, atraumatic Eyes: Normal inspection, PERRL, EOMI ENT: Normal ENT inspection, hearing grossly normal, pharynx normal Neck: Supple, no JVD, trachea midline Respiratory/Chest: Lungs clear to auscultation, normal breath sounds, no respiratory distress Cardiovascular: Regular rate & rhythm, no gallop, no murmur Abdomen/GI: +Diffuse mild TTP. Normal bowel sounds, soft Extremities/Musculoskeletal: +Drain place. 2+ pitting edema. Normal inspection , no calf tenderness Neurological/Psych: Alert, normal mood/affect, oriented x 3 Skin: Normal color, warm/dry, no rash Laboratory Results Last 24 Hours Test 03/26/18 12:00 03/26/18 17:22 03/26/18 20:17 03/26/18 20:47 Bedside Glucose 74 mg/dl 86 mg/dl 353 mg/dl 303 mg/dl Test 03/27/18 00:06 03/27/18 03:25 03/27/18 05:26 03/27/18 09:09 Bedside Glucose 240 mg/dl 177 mg/dl 153 mg/dl White Blood Count 12.46 K/uL Red Blood Count 3.36 M/uL Hemoglobin 9.5 g/dL Hematocrit 29.7 % Mean Corpuscular Volume 88.4 fL Mean Corpuscular Hemoglobin 28.3 pg Mean Corpuscular Hemoglobin Concent 32.0 g/dl RDW Standard Deviation 43.2 fL RDW Coefficient of Variation 13.3 % Platelet Count 401 K/uL Mean Platelet Volume 8.1 fL Sodium Level 136 mmol/L Potassium Level 3.7 mmol/L Chloride Level 97 mmol/L Carbon Dioxide Level 33 mmol/L Anion Gap 6.0 mmol/L Blood Urea Nitrogen 15 mg/dl Creatinine 0.92 mg/dl Est Creatinine Clear Calc Drug Dose 78.1 ml/min Estimated GFR () 77.3 Estimated GFR (Non- 66.7 BUN/Creatinine Ratio 15.9 Random Glucose 134 mg/dl Calcium Level 8.7 mg/dl Assessment and Plan 63 y/o female with a history of HTN, HLD, DM II, temporal arteritis and PMR on chronic prednisone, and neuropathy who presents from [facility] with fever, confusion, and severe RLE pain. Pt underwent recent lumbar decompression /fusion about 3 weeks ago, then a few days later readmitted for infected lumbar seroma and bacteremia that was treated with daptomycin. Pt then discharged w/6 week course of dapto. Presented to [place] [facility] on 03/22 w/what appears to be sepsis. Sepsis due to recurrent lumbar seroma vs recurrent bacteremia vs UTI vs other-- resolving -Called OSH, blood cultures NGTD x 2 sets -Continue daptomycin IV for coag neg staph bacteremia/lumbar spine infection -MRI shows epidural fluid collection in laminectomy bed w/significant mass effect on thecal sac resulting in severe spinal canal stenosis. -S/p I&D evacuation of seroma and revision of decompression w/Dr. Lubin on . Culture NGTD -Surgical management/DVT ppx per ortho -Pain much relieved after evacuation of seroma Metabolic and/or toxic encephalopathy--resolved -Zanaflex on hold -Oxycodone restarted per ortho 03/25 -Continue prn Dilaudid for severe pain Acute on chronic anemia secondary to blood loss in postop setting--stable -Hgb 9.5 on 03/27, down from 9.8 -S/p 2 units PRBC -Continue to monitor HTN, HLD--stable -Continue verapamil 240 mg PO qd, Lipitor 40 mg PO qd and Zetia 10 mg PO qd DM II--HgbA1c 9.6 on 03/08/18 -Pharmacy consulted for glycemic control -Hyperglycemic last night with BSG up to 353 -Lantus per sliding scale -Insulin sliding scale -Check BSGs q ac and qhs. Additional checks added at 0000 and 0400 Temporal arteritis/PMR on chronic steroids--stable -D/C hydrocortisone 25 mg IV q12h -Prednisone 15 mg PO qd x 2 days completed, reduce back to home dose (11 mg) tomorrow -Follows w/Dr. Pope Neuropathy -Continue Cymbalta 60 mg PO qd Code Status -Level I, FULL RESUSCITATION STATUS Dispo -OT reordered for updated postop evals -PT evaluated 03/26, recommend rehab Continued [facility] stay due to: home environment unsafe for pt
--- NOTE | 2018-03-27 11:22 | Consultant Recommendations ---
Cvt Rn Recommendations Date of Service Mar 27, 2018. Cvt Rn Recommendations Patient's blood sugars have been labile while in the hospital, managed by pharmacy Patient was on following Lantus/Novolog sliding scales as of 03/27, may need to be adjusted as needed: Lantus SQ BID * BSG < 101mg/dl - 0 units * BSG 101-180mg/dl - 10 units * BSG > 180mg/dl - 15 units Bolus insulin * NovoLog per scale ACHS or Q6hrs while NPO * Goal Range: Low 110 mg/dL - High 140 mg/dL * Correction Factor: 20 mg/dL/unit * Nutritional / Prandial insulin per carb ratio of 1 unit per 7 grams CHO consumed Please check patient's blood sugars before meals and bedtime and adjust sliding scales as needed. Patient also receiving daptomycin 500 mg IV daily for previous bacteremia. Patient needs total of 6 weeks IV therapy, first day 03/20/18. PICC line is in place. Would continue to hold Zanaflex. Patient with acute blood loss anemia postoperatively. Recommend period CBC checks to monitor hemoglobin, currently stable. Received total of 2 units PRBC while inpatient. Continue chronic home dose of prednisone 11 mg daily due to temporal arteritis/ polymyalgia rheumatica
[2018-03-27 12:07] VITALS: BP 162/90; PULSE 85; TEMP 37.4; O2SAT 97
[2018-03-27 14:56] VITALS: BP 146/66; PULSE 94; TEMP 37.4; O2SAT 94
[2018-03-27] MEDS: EZETIMIBE 10MG TAB PO SCH (21:20)
[2018-03-27] MEDS: TRIAMCINOLONE ACET NASAL SPRAY 10.8ML BTL NAE SCH (21:20)
[2018-03-27] MEDS: LORAZEPAM 1 MG TAB PO PRN (21:57)
[2018-03-27] MEDS: ATORVASTATIN 40 MG TAB PO SCH (21:57)
[2018-03-27 23:24] VITALS: BP 158/73; PULSE 81; TEMP 36.9; O2SAT 90
[2018-03-28] MEDS: OXYCODONE HCL IR 5 MG TAB (IMMEDIATE RELEASE) PO PRN ×3 (01:35→17:12)
[2018-03-28 06:14] LABS: HEMOGLOBIN 9.8 g/dL (12.0-16.0); MEAN CELL VOLUME 88.5 fL (80-100); MEAN CORPUSCULAR HEMOGLOBIN 28.9 pg (25-34); MEAN CORPUSCULAR HGB CONC 32.7 g/dl (32-36); MEAN PLATELET VOLUME 8.2 fL (7.4-10.4); PLATELET COUNT 469 K/uL (130-400); RED CELL DISTRIBUTION WIDTH CV 13.2 % (11.5-14.5); RED CELL DISTRIBUTION WIDTH SD 42.7 fL (36.4-46.3); WHITE BLOOD COUNT 11.41 K/uL (4.8-10.8)
[2018-03-28 06:44] LABS: CALCIUM 8.7 mg/dl (8.5-10.1); CREATININE 0.96 mg/dl (0.60-1.20); POTASSIUM 3.8 mmol/L (3.5-5.1)
[2018-03-28 08:23] VITALS: BP 167/82; PULSE 90; TEMP 36.9; O2SAT 95
[2018-03-28 08:25] VITALS: O2SAT 95
[2018-03-28] MEDS: PANTOprazole SOD 40 MG TAB PO SCH (08:34)
[2018-03-28] MEDS: DULOXETINE HCL 60 MG CAP PO SCH (08:34)
[2018-03-28] MEDS: MAGNESIUM OXIDE 400 MG TAB PO SCH ×2 (08:34→21:22)
[2018-03-28] MEDS: DOCUSATE SODIUM 100 MG CAP PO SCH ×2 (08:34→21:22)
[2018-03-28] MEDS: MULTIVITAMIN TAB PO SCH (08:34)
[2018-03-28] MEDS: CALCIUM 600MG + VIT D 400 IU TAB PO SCH (08:35)
[2018-03-28] MEDS: POLYETHYLENE (MIRALAX) 17 GM PACK PO SCH (08:35)
[2018-03-28] MEDS: VERAPAMIL HCL 240 MG TABCR PO SCH (08:35)
[2018-03-28] MEDS ORDERED: DAPTOMYCIN 500 MG IV SCH (09:00)
[2018-03-28] MEDS: INSULIN ASPART 100 UNITS/ML 3 ML PEN SC SCH ×4 (09:00→21:21)
[2018-03-28] MEDS: DAPTOMYCIN 500 MG IV SCH (09:37)
[2018-03-28] MEDS: INSULIN GLARGINE SOLOSTAR 100 UNITS/ML 3 ML PEN SC SCH ×2 (09:44→21:20)
--- NOTE | 2018-03-28 09:44 | Pharmacy Progress Note ---
Pharmacy Glycemic Short Note 2 Date of Service Mar 28, 2018. OUTPATIENT ANTIDIABETIC REGIMEN: * Lantus 40 units SQ BID * Novolog 15 units TID with meals + SS ASSESSMENT: * Ms Juares is a 63 y/o F with a PMH of HTN, polymyaglia rheumatica on chronic home prednisone 11 mg, and poorly controlled type 2 diabetes who presents with post-operative fever. Patient currently on home daptomycin for post-op infection. Patient was on prednisone 15 mg daily x 2 days and now restarting home dose of prednisone 11 mg daily. * Patient's blood sugars yesterday were [phone] mg/dL. The patient's blood sugar was 288 mg/dL because she refused the calculated dose of 13 units and instead only accepted 9 units. Fasting today is 199 mg/dL. * The patient's fasting blood sugar is elevated. This indicates that 25 units of Lantus per day is not sufficient. The patient most likely had hypoglycemia previously because she was receiving Lantus 70 units/day while on IV steroids. Will increase scale to reflect patient's increasing needed for basal insulin. Expect patient to require between 40-50 units/day. Home dose is 40 units BID. * Patient's blood sugar did continue to increase throughout the day but the patient will receive a lower dose of prednisone. Will evaluate how this affects patient and may tighten Novolog parameters later. PLAN FOR INPATIENT GLYCEMIC CONTROL: * Basal insulin - CHANGE * Lantus SQ BID * BSG < 120 mg/dl - 10 units * BSG 121-180mg/dl - 15 units * BSG > 180mg/dl - 20 units * Bolus insulin * NovoLog per scale ACHS or Q6hrs while NPO * Goal Range: Low 110 mg/dL - High 140 mg/dL * Correction Factor: 20 mg/dL/unit * TIGHTEN: Nutritional / Prandial insulin per carb ratio of 1 unit per 7 grams CHO consumed PLAN FOR DISCHARGE: * Follow up with outpatient provider, A1c 9.6% above goal, needs insulin adjustments based on home use
--- NOTE | 2018-03-28 12:09 | Hospitalist Progress Note ---
Hospitalist Progress Note Date of Service Mar 28, 2018. Subjective Pt evaluation today including: conversation w/ patient, physical exam, chart review, lab review, review of inpatient medication list Pain: Controlled PO Intake: Tolerating PO diet Voiding: no voiding problems Patient reports feeling well. She states she is ambulating and moving around better now. She is tolerating a PO diet and voiding on her own. She is passing gas and moving her bowels. She continues to have some back pain and right thigh pain but this is stable. The patient denies fevers, chills, sweats , chest pain, palpitations, claudication, cough, wheezing, shortness of breath, nausea, vomiting, abdominal pain, dysuria, hematuria, urinary retention, paralysis, weakness, numbness and tingling. Additional Comments: See HPI for pertinent positives and negatives. All other systems reviewed and negative. Objective Vital Signs Date Time Temp Pulse Resp B/P (MAP) Pulse Ox O2 Delivery O2 Flow Rate FiO2 03/28/18 08:25 95 Room Air 03/28/18 08:23 36.9 90 16 167/82 (110) 95 Room Air 03/28/18 08:15 Room Air 03/27/18 23:25 Room Air 03/27/18 23:24 36.9 81 16 158/73 (101) 90 Room Air 03/27/18 15:30 Room Air 03/27/18 14:56 37.4 94 18 146/66 (92) 94 03/27/18 12:07 37.4 85 16 162/90 (114) 97 Room Air Physical Exam Notes: General appearance: +Morbidly obese. Well-developed, well-nourished, no apparent distress Head: Normocephalic, atraumatic Eyes: Normal inspection, PERRL, EOMI ENT: Normal ENT inspection, hearing grossly normal, pharynx normal Neck: Supple, no JVD, trachea midline Respiratory/Chest: Lungs clear to auscultation, normal breath sounds, no respiratory distress Cardiovascular: Regular rate & rhythm, no gallop, no murmur Abdomen/GI: Normal bowel sounds, non-tender, soft Extremities/Musculoskeletal: +Drain place. 2+ pitting edema. Normal inspection , no calf tenderness Neurological/Psych: Alert, normal mood/affect, oriented x 3 Skin: Normal color, warm/dry, no rash Laboratory Results Last 24 Hours Test 03/27/18 12:09 03/27/18 17:04 03/27/18 20:36 03/28/18 01:35 Bedside Glucose 156 mg/dl 191 mg/dl 288 mg/dl 182 mg/dl Test 03/28/18 05:15 03/28/18 08:10 White Blood Count 11.41 K/uL Red Blood Count 3.39 M/uL Hemoglobin 9.8 g/dL Hematocrit 30.0 % Mean Corpuscular Volume 88.5 fL Mean Corpuscular Hemoglobin 28.9 pg Mean Corpuscular Hemoglobin Concent 32.7 g/dl RDW Standard Deviation 42.7 fL RDW Coefficient of Variation 13.2 % Platelet Count 469 K/uL Mean Platelet Volume 8.2 fL Sodium Level 136 mmol/L Potassium Level 3.8 mmol/L Chloride Level 97 mmol/L Carbon Dioxide Level 32 mmol/L Anion Gap 7.0 mmol/L Blood Urea Nitrogen 14 mg/dl Creatinine 0.96 mg/dl Est Creatinine Clear Calc Drug Dose 74.9 ml/min Estimated GFR () 73.5 Estimated GFR (Non- 63.4 BUN/Creatinine Ratio 14.4 Random Glucose 170 mg/dl Calcium Level 8.7 mg/dl Bedside Glucose 199 mg/dl Assessment and Plan 63 y/o female with a history of HTN, HLD, DM II, temporal arteritis and PMR on chronic prednisone, and neuropathy who presents from [facility] with fever, confusion, and severe RLE pain. Pt underwent recent lumbar decompression /fusion about 3 weeks ago, then a few days later readmitted for infected lumbar seroma and bacteremia that was treated with daptomycin. Pt then discharged w/6 week course of dapto. Presented to [place] [facility] on 03/22 w/what appears to be sepsis. Sepsis due to recurrent lumbar seroma vs recurrent bacteremia vs UTI vs other-- resolving -Called OSH, blood cultures NGTD x 2 sets -Continue daptomycin IV for coag neg staph bacteremia/lumbar spine infection -MRI shows epidural fluid collection in laminectomy bed w/significant mass effect on thecal sac resulting in severe spinal canal stenosis. -S/p I&D evacuation of seroma and revision of decompression w/Dr. Lubin on . Culture NGTD -Surgical management/DVT ppx per ortho -Pain much relieved after evacuation of seroma Metabolic and/or toxic encephalopathy--resolved -Zanaflex on hold -Oxycodone restarted per ortho 03/25 -Continue prn Dilaudid for severe pain Acute on chronic anemia secondary to blood loss in postop setting--stable -Hgb 9.8 on 03/28, stable -S/p total 2 units PRBC -Continue to monitor HTN, HLD--stable -Continue verapamil 240 mg PO qd, Lipitor 40 mg PO qd and Zetia 10 mg PO qd DM II--HgbA1c 9.6 on 03/08/18 -Pharmacy consulted for glycemic control -BSGs improving -Lantus per sliding scale -Insulin sliding scale -Check BSGs q ac and qhs. Additional checks added at 0000 and 0400 Temporal arteritis/PMR on chronic steroids--stable -D/C hydrocortisone 25 mg IV q12h -Resume home dose of prednisone 11 mg PO qd -Follows w/Dr. Pope Neuropathy -Continue Cymbalta 60 mg PO qd Code Status -Level I, FULL RESUSCITATION STATUS Dispo -PT evaluated 03/26, recommend rehab -OT re-evaluated 03/27, recommend rehab Pt. is stable from a medical standpoint, we will sign off. Clear for discharge as per primary team.
[2018-03-28] MEDS ORDERED: RXC5 PO ×2 (12:50)
--- NOTE | 2018-03-28 12:52 | Discharge Instructions ---
Discharge Instructions Date of Service Mar 28, 2018. Admission Reason for Admission: Elevated Temp, Status Post Procedure Discharge Discharge Diagnosis / Problem: lumbar infection Discharge Goals Goal(s): Improve function Activity Recommendations Activity Limitations: per Instructions/Follow-up section . Instructions / Follow-Up Instructions / Follow-Up ACTIVITY RECOMMENDATIONS: SELF CARE INSTRUCTIONS AFTER THORACIC/LUMBAR FUSIONS 1. You may walk to your tolerance. It is good exercise for your legs and back. Expect some back and intermittent leg aches and pains. 2. You may perform "counter-top" level activities (make a sandwich, terrence with a project, etc.). 3. No bending or lifting of more than 10 pounds or back twisting of any nature (roll like a log when turning in bed). 4. You may ride in a car for 20-30 minutes at a time. No driving until after your first visit with your doctor. 5. Frequent changes of position and restricting sitting to 30 minutes at a time will help limit the amount of back spasms and stiffness you may experience. 6. You may discontinue the use of ambulatory aids (cane, crutches, etc.) once your strength and confidence allow. 7. You may finance lecturer the shower and let water strike your incision when you arrive home at least once daily. Do not take a tub bath, sit in a hot tub or go into a swimming pool until after your first recheck in the office. SPECIAL CARE INSTRUCTIONS: VERY IMPORTANT TO READ AND REVIEW A. Your surgical incision has been closed with a cosmetic suture under the skin that will dissolve in about 6 weeks. In 14 days, you can use a pair of clean scissors and cut the suture that is left outside of the skin at the ends of your incision. 1. The small skin tapes can be removed 7 days after surgery if they have not fallen off by that point. 2. You may keep the wound open to air as much as possible to promote healing after post-op day number 5 unless told otherwise by your doctor. 3. If you think the wound looks like it is becoming infected (redness or worsening drainage) and/or you are experiencing fever, chill or worsening back pain and muscle spasms, contact the office so that we may evaluate you as soon as possible. B. Complications are uncommon, but please contact us if you have any signs or symptoms of: 1. wound infection (fever higher than 102.5 degrees F, redness, separation of wound, drainage, or increasing pain from the incision) 2. blood clots in legs (pain, swelling, redness and warmth in legs) 3. urinary tract infection (fever higher than 102.5 degrees F, burning upon urination or increased frequency of urination) 4. nerve problems (inability to walk on your toes or heels, numbness, loss of bowel or bladder control) 5. any other symptoms that concern you C. Please call the office at if you have any concerns or questions about your operation or recovery. D. No smoking! Smoking drastically decreases the chance of a solid fusion. E. Do not take any anti-inflammatory medications (Indocin, Advil, Motrin, Aspirin, Naprosyn, etc.) as these may inhibit the chance of a solid fusion. Tylenol is okay to take for pain. MANAGING PAIN AFTER SPINAL SURGERY 1. Narcotic medication is intended for short-term use and will be provided for surgical pain. Surgical pain usually lasts for a period of 4-6 weeks. Narcotic medication includes Percocet, Vicodin, Darvocet, Tylenol #3 or Lortab. 2. Longer-term pain is more appropriately treated with non-narcotic medication such as Tylenol ES. 3. Muscle spasm is not appropriately treated with narcotics. Muscle relaxers such as Soma, Flexeril or Skelaxin can be used along with Tylenol ES. 4. Remember that we all live with some "aches and pains". This is not unusual or uncommon after an injury or as we get older. a. Back pain is expected and may include muscle spasms for 4 to 6 weeks after surgery. The pain should gradually improve. If the pain worsens for no apparent reason, please contact the office. b. Intermittent leg pain may also be experienced and should not be concerned about unless it worsens for no apparent reason. If so, please contact the office. 5. We will provide appropriate medication within the normal guidelines of their prescribed use. We will also be very cautious and aware of potential abuse and extended duration of patients' medication needs. a. Pain medications are for your comfort and to assist with sleep and rest so that the tissue can heal. They are not provided in order to return to normal activity and should not be used through the day. To do so or worsening pain at night can result from ongoing tissue damage and development of tolerance to the prescribed medicine. 6. Please allow 2-3 days to process refills. Prescriptions will not be mailed but must be picked up at the office. FOLLOW UP VISIT: Keep your scheduled follow-up appointment. Any questions, please call the office at . Current Hospital Diet Patient's current hospital diet: Diabetes Type 2 Diet Discharge Diet Recommended Diet: Regular Diet Procedures Procedures Performed: 1. I&D evacuation of seroma L4-5 lumbar spine. #2 revision decompression L4-5. #3 placement of stimulant beads L4-5. Pending Studies Studies pending at discharge: no Laboratory Results Hemoglobin A1c Test 03/08/18 05:54 Range/Units Estimated Average Glucose 229 mg/dl Hemoglobin A1c 9.6 H 4.5-5.6 % Medical Emergencies . Who to Call and When: Medical Emergencies: If at any time you feel your situation is an emergency, please call 911 immediately. . Non-Emergent Contact Non-Emergency issues call your: Primary Care Provider . "Provider Documentation" section prepared by Bhargav Lubin. . Sugar Grinder Recommendations Sugar Grinder Recommendations: Patient's blood sugars have been labile while in the hospital, managed by pharmacy Patient was on following Lantus/Novolog sliding scales as of 03/27, may need to be adjusted as needed: Lantus SQ BID * BSG < 101mg/dl - 0 units * BSG 101-180mg/dl - 10 units * BSG > 180mg/dl - 15 units Bolus insulin * NovoLog per scale ACHS or Q6hrs while NPO * Goal Range: Low 110 mg/dL - High 140 mg/dL * Correction Factor: 20 mg/dL/unit * Nutritional / Prandial insulin per carb ratio of 1 unit per 7 grams CHO consumed Please check patient's blood sugars before meals and bedtime and adjust sliding scales as needed. Patient also receiving daptomycin 500 mg IV daily for previous bacteremia. Patient needs total of 6 weeks IV therapy, first day 03/20/18. PICC line is in place. Would continue to hold Zanaflex. Patient with acute blood loss anemia postoperatively. Recommend period CBC checks to monitor hemoglobin, currently stable. Received total of 2 units PRBC while inpatient. Continue chronic home dose of prednisone 11 mg daily due to temporal arteritis/ polymyalgia rheumatica
--- NOTE | 2018-03-28 13:02 | Progress Note ---
Progress Note Date of Service Mar 28, 2018. Progress Note Patient's back pain is controlled leg symptoms are improved. She is ambulating well. Vital signs are stable. YONI drain still functioning. On exam she is in the chair at bedside is good strength testing. Assessment status post lumbar depression fusion per plan at this time we are waiting for placement in rehab. She was able to discharge home when bed available.
[2018-03-28 14:56] VITALS: BP 153/77; PULSE 88; TEMP 37.6; O2SAT 93
[2018-03-28 16:16] VITALS: BP 153/77; PULSE 88; TEMP 37.6; O2SAT 93
[2018-03-28] MEDS: TRIAMCINOLONE ACET NASAL SPRAY 10.8ML BTL NAE SCH (21:21)
[2018-03-28] MEDS: ATORVASTATIN 40 MG TAB PO SCH (21:22)
[2018-03-28] MEDS: EZETIMIBE 10MG TAB PO SCH (21:22)
[2018-03-28 23:30] VITALS: BP 167/77; PULSE 82; TEMP 37; O2SAT 96
[2018-03-28] MEDS: LORAZEPAM 1 MG TAB PO PRN (23:47)
[2018-03-29] MEDS: OXYCODONE HCL IR 5 MG TAB (IMMEDIATE RELEASE) PO PRN ×3 (04:58→14:07)
[2018-03-29 05:35] LABS: HEMATOCRIT 28.8 % (37-47); HEMOGLOBIN 9.5 g/dL (12.0-16.0); MEAN CELL VOLUME 87.5 fL (80-100); MEAN CORPUSCULAR HEMOGLOBIN 28.9 pg (25-34); PLATELET COUNT 397 K/uL (130-400); RED CELL DISTRIBUTION WIDTH CV 13.2 % (11.5-14.5); RED CELL DISTRIBUTION WIDTH SD 42.7 fL (36.4-46.3); WHITE BLOOD COUNT 14.48 K/uL (4.8-10.8)
[2018-03-29 06:08] LABS: CALCIUM 8.7 mg/dl (8.5-10.1); CREATININE 0.93 mg/dl (0.60-1.20); POTASSIUM 3.5 mmol/L (3.5-5.1)
[2018-03-29 07:10] VITALS: BP 170/97; PULSE 105; TEMP 37.1; O2SAT 94
[2018-03-29 08:16] VITALS: BP 157/74
[2018-03-29] MEDS: PANTOprazole SOD 40 MG TAB PO SCH (08:30)
[2018-03-29] MEDS: CALCIUM 600MG + VIT D 400 IU TAB PO SCH (08:30)
[2018-03-29] MEDS: MAGNESIUM OXIDE 400 MG TAB PO SCH (08:30)
[2018-03-29] MEDS: MULTIVITAMIN TAB PO SCH (08:30)
[2018-03-29] MEDS: DOCUSATE SODIUM 100 MG CAP PO SCH (08:31)
[2018-03-29] MEDS: DULOXETINE HCL 60 MG CAP PO SCH (08:31)
[2018-03-29] MEDS: VERAPAMIL HCL 240 MG TABCR PO SCH (08:31)
[2018-03-29] MEDS: POLYETHYLENE (MIRALAX) 17 GM PACK PO SCH (08:31)
[2018-03-29] MEDS ORDERED: INSULIN GLARGINE SOLOSTAR 100 UNITS/ML 3 ML PEN SC SCH (09:00)
[2018-03-29] MEDS: DAPTOMYCIN 500 MG IV SCH (09:30)
[2018-03-29] MEDS: INSULIN ASPART 100 UNITS/ML 3 ML PEN SC SCH ×2 (09:38→12:54)
--- NOTE | 2018-03-29 10:22 | Discharge Summary ---
Orthopedic Discharge Summary Admission Date/Reason Mar 22, 2018 at 17:27 Elevated Temp, Status Post Procedure. Discharge Date/Disposition Mar 28, 2018 Home Diagnosis Principal Diagnosis: Epidural seroma Admission Physical Exam As per Admitting History & Physical. Hospital Course Patient was admitted with worsening leg pain. MRI was obtained demonstrating marked expansion of an epidural seroma at the area at the L4-5 level. She was subsequently taken to surgery she under went evacuation of the seroma I did reimplant stimulator and antibiotic beads. A drain was placed. The patient postoperatively had marked improvement of her leg symptoms and progressed nicely throughout the week. She was subsequently discharged home. Discharge orders instructions can be found chart for further review. Discharge Instructions Please refer to the electronic Patient Visit Report (Discharge Instructions) for additional information.
--- NOTE | 2018-04-02 07:41 | EDITING REQUIRED CODING QUERY ---
SEPSIS To promote full compliance with coding requirements relating to patient care, physician participation is requested in all cases of medical biller coder uncertainty. Please assist us with the question(s) below: In responding to this query, please exercise your independent professional judgement. The fact that a question is asked does not imply that any particular answer is desired or expected. We appreciate your clarification on this issue. Throughout the medical record, you have clearly documented a localized infection and your patient has clinical evidence of a generalized sepsis or severe sepsis. The term urosepsis is a nonspecific entity and is coded as an UTI. If the patient has sepsis, severe sepsis, from an urinary source or some other source, please clarify in your response below. The medical record reflects the following clinical findings: Patient admitted with seroma . To OR for drainage. Progress notes document Sepsis in the setting of epidural seroma. Please check below the diagnosis treated during this Inpatient Stay, if applicable.Thank you! SHELBY Pinto [facility] ( )Bacteremia (Nonspecific laboratory finding of bacteria in the blood) Specify Organism ( ) Present on Admission ( ) Not present on admission ( ) Unable to clinically determine (x ) Septicemia (Systemic disease associated with the presence of pathogenic microorganisms in the blood): Specify Organism ( ) Present on Admission ( ) Not present on admission ( ) Unable to clinically determine ( ) Sepsis Specify Organism Specify Associated Condition/Diagnosis ( ) Present on Admission ( ) Not present on admission ( ) Unable to clinically determine ( ) Severe Sepsis (Sepsis associated with acute organ dysfunction) Specify Organism Specify Associated Condition/Diagnosis ( ) Present on Admission ( ) Not present on admission ( ) Unable to clinically determine ( ) Septic Shock (Severe sepsis with acute circulatory failure, unexplained by other causes) ( ) Present on Admission ( ) Not present on admission ( ) Unable to clinically determine ( ) Other, patient has:
== END 2018-03-29 14:51 | disposition home health service (06) | DRG 853 ==
LOC: C.MSN 16:17 → UNDOADMIN 16:17 → C.MSN 17:27 → ENRESERV 19:22 → C.2E 20:27 → C.MSN 20:27 → ENRESERV 03-25 15:59 → C.MSW 03-25 16:47
PROVIDERS: ADMIT Orthopaedic Surgery Orthopaedic Surgery of the Spine; ATTEND Orthopaedic Surgery Orthopaedic Surgery of the Spine
PROC: 01NB0ZZ Release Lumbar Nerve, Open Approach (ICD-10-PCS; principal; 2018-03-25 12:45)
PROC: 3E0U029 Introduction of Other Anti-infective into Joints, Open Approach (ICD-10-PCS; principal; 2018-03-25 12:45)
PROC: 0JC70ZZ Extirpation of Matter from Back Subcutaneous Tissue and Fascia, Open Approach (ICD-10-PCS; principal; 2018-03-25 12:45)
DX: A41.9 Sepsis, unspecified organism (principal); E87.1 Hypo-osmolality and hyponatremia; G93.41 Metabolic encephalopathy; G97.64 Postprocedural seroma of a nervous system organ or structure following other procedure; Z98.890 Other specified postprocedural states; Z68.41 Body mass index [BMI] 40.0-44.9, adult; Z98.1 Arthrodesis status; Z88.0 Allergy status to penicillin; Z88.1 Allergy status to other antibiotic agents; Z79.4 Long term (current) use of insulin; Y83.8 Other surgical procedures as the cause of abnormal reaction of the patient, or of later complication, without mention of misadventure at the time of the procedure; Y92.019 Unspecified place in single-family (private) house as the place of occurrence of the external cause; J98.11 Atelectasis; I10 Essential (primary) hypertension; E66.01 Morbid (severe) obesity due to excess calories; M35.3 Polymyalgia rheumatica; E11.649 Type 2 diabetes mellitus with hypoglycemia without coma; Z79.52 Long term (current) use of systemic steroids; Z82.49 Family history of ischemic heart disease and other diseases of the circulatory system; D64.9 Anemia, unspecified; E83.42 Hypomagnesemia; D50.0 Iron deficiency anemia secondary to blood loss (chronic); E11.40 Type 2 diabetes mellitus with diabetic neuropathy, unspecified; M31.6 Other giant cell arteritis

== ENCOUNTER 2020-06-13 05:07 | Observation (INO) ==
--- NOTE | 2020-05-30 10:36 | PAT Medication Instructions ---
Medication Instructions Date of Service May 30, 2020 Home Medications aspirin [Aspir-81] 81 mg PO QPM atorvastatin 40 mg PO HS bisoprolol fumarate 5 mg PO PM cholecalciferol (vitamin D3) [Vitamin D3] 2,000 unit PO QAM chromium picolinate 1,000 mcg PO QAM coQ10 (ubiquinol) 100 mg PO QPM docusate sodium 100 mg PO QAM PRN duloxetine 60 mg PO QAM ezetimibe [Zetia] 10 mg PO QPM ferrous sulfate 325 mg PO BID hydrochlorothiazide 25 mg PO BID PRN hydroxyzine pamoate [Vistaril] 25 mg PO HS PRN insulin aspart U-100 [Novolog U-100 Insulin aspart] 10 - 20 unit SUBCUT TIDM magnesium oxide 400 mg PO Q OTHER DAY multivitamin 1 tab PO PM omega-3 acid ethyl esters [Lovaza] 1 cap PO BID polyethylene glycol 3350 [Miralax] 17 g PO DAILY PRN tramadol 50 - 100 mg PO Q6H PRN verapamil 120 mg PO QAM biotin-calcium carbonate 1 tab PO PM levomefolate calcium [Elfolate] 15 mg PO QAM tizanidine [Zanaflex] 4 mg PO HS tofacitinib [Xeljanz XR] 11 mg PO PM ASK your prescriber and surgeon tofacitinib [Xeljanz XR] 11 mg PO PM STOP taking 2 weeks before surgery (or as soon as possible if surgery is within 2 weeks) chromium picolinate 1,000 mcg PO QAM coQ10 (ubiquinol) 100 mg PO QPM omega-3 acid ethyl esters [Lovaza] 1 cap PO BID DO NOT take the morning of surgery cholecalciferol (vitamin D3) [Vitamin D3] 2,000 unit PO QAM docusate sodium 100 mg PO QAM PRN ferrous sulfate 325 mg PO BID hydrochlorothiazide 25 mg PO BID PRN insulin aspart U-100 [Novolog U-100 Insulin aspart] 10 - 20 unit SUBCUT TIDM magnesium oxide 400 mg PO Q OTHER DAY multivitamin 1 tab PO PM polyethylene glycol 3350 [Miralax] 17 g PO DAILY PRN levomefolate calcium [Elfolate] 15 mg PO QAM Take morning of surgery With a small sip of water, OTHERWISE NOTHING TO EAT OR DRINK AFTER MIDNIGHT: duloxetine 60 mg PO QAM tramadol 50 - 100 mg PO Q6H PRN (okay to take up to 4 hours prior to surgery if needed) verapamil 120 mg PO QAM Take evening before surgery aspirin [Aspir-81] 81 mg PO QPM atorvastatin 40 mg PO HS bisoprolol fumarate 5 mg PO PM ezetimibe [Zetia] 10 mg PO QPM ferrous sulfate 325 mg PO BID hydrochlorothiazide 25 mg PO BID PRN (if needed) hydroxyzine pamoate [Vistaril] 25 mg PO HS PRN (if needed) insulin aspart U-100 [Novolog U-100 Insulin aspart] 10 - 20 unit SUBCUT TIDM polyethylene glycol 3350 [Miralax] 17 g PO DAILY PRN (if needed) tramadol 50 - 100 mg PO Q6H PRN (if needed) biotin-calcium carbonate 1 tab PO PM tizanidine [Zanaflex] 4 mg PO HS Other Notes If you have any questions please call us at [phone] or [phone] or [phone] or [phone]
--- NOTE | 2020-06-01 12:12 | Anesthesiology Consultation ---
Date of Service June 01, 2020 Assessment & Plan (1) Encounter for pre-operative examination: - Awaiting most recent PCP office visit note and ECHO (Dr. Ifrah Moore). - Per assessment on 06/01: Travel screen negative. Uses PPE. No known COVID-19 positive contacts or current COVID-19 related symptoms. Surgeon arranging preop COVID testing. Awaiting results. - Hx Glidescope intubation: I&D lumbar spine with stimulator beads: 03/25/18: Glidescope #3, ETT 7.0 at [facility] - Hx of lumbar fusion as well as difficulty with spinal placements with prior c/s done remotely per patient. Discussed SAB vs. GA. Questions/concerns answered. Chart Review Chart Review: Patient seen in Pre Admission Testing Teaching & Discussion Pre-Anesthesia Teaching/Discussion Notes: Instructed NPO after midnight before surgery,except medications with 15 cc of water. Medication instructions provided according to the PAT guidelines. History Surgery Operation Date: 06/13/20 09:20 Proposed Procedures p Right Total Knee Arthroplasty - Brian Hansen DO Height/Weight Height: 5 ft 3 in Weight: 97.2 kg Allergies Allergy/AdvReac Type Severity Reaction Status Date / Time adhesive Allergy Intermediate Rash with Verified 06/01/20 12:05 tape cefaclor Allergy Intermediate Hives Verified 06/01/20 12:05 Penicillins Allergy Intermediate Hives Verified 06/01/20 12:05 Medications Home Medications Medication Instructions Recorded Confirmed Last Taken aspirin [Aspir-81] 81 mg PO QPM 10/09/18 05/20/20 Unknown atorvastatin 40 mg PO HS 10/09/18 05/20/20 Unknown bisoprolol fumarate 5 mg PO PM 10/09/18 05/20/20 Unknown cholecalciferol (vitamin D3) 2,000 unit PO QAM 10/09/18 05/20/20 Unknown [Vitamin D3] chromium picolinate 1,000 mcg PO QAM 10/09/18 05/20/20 Unknown coQ10 (ubiquinol) 100 mg PO QPM 10/09/18 05/20/20 Unknown docusate sodium 100 mg PO QAM PRN 10/09/18 05/20/20 Unknown duloxetine 60 mg PO QAM 10/09/18 05/20/20 Unknown ezetimibe [Zetia] 10 mg PO QPM 10/09/18 05/20/20 Unknown ferrous sulfate 325 mg PO BID 10/09/18 05/20/20 Unknown hydrochlorothiazide 25 mg PO BID PRN 10/09/18 05/20/20 Unknown hydroxyzine pamoate [Vistaril] 25 mg PO HS PRN 10/09/18 05/20/20 Unknown insulin aspart U-100 [Novolog 10 - 20 unit SUBCUT TIDM 10/09/18 05/20/20 Unknown U-100 Insulin aspart] magnesium oxide 400 mg PO Q OTHER DAY 10/09/18 05/20/20 Unknown multivitamin 1 tab PO PM 10/09/18 05/20/20 Unknown omega-3 acid ethyl esters [Lovaza] 1 cap PO BID 10/09/18 05/20/20 Unknown polyethylene glycol 3350 [Miralax] 17 g PO DAILY PRN 10/09/18 05/20/20 Unknown tramadol 50 - 100 mg PO Q6H PRN 10/09/18 05/20/20 Unknown verapamil 120 mg PO QAM 10/09/18 05/20/20 Unknown biotin-calcium carbonate 1 tab PO PM 05/20/20 05/20/20 Unknown levomefolate calcium [Elfolate] 15 mg PO QAM 05/20/20 05/20/20 Unknown tizanidine [Zanaflex] 4 mg PO HS 05/20/20 05/20/20 Unknown tofacitinib [Xeljanz XR] 11 mg PO PM 05/20/20 05/20/20 Unknown doxycycline hyclate 100 mg tablet 100 mg PO BID #10 tab 06/01/20 06/01/20 Unknown Past Medical History Medical History (Updated 06/01/20 @ 14:57 by Polly Aguilar) Anemia chronic Anxiety Chronic kidney disease stage II (follows with Dr. Arceo/[facility]) History of blood transfusion post-op back surgery Hyperlipidemia Hypertension Obesity PMR (polymyalgia rheumatica) [facility] ([facility]) Restless leg syndrome Rheumatoid arthritis [facility] Martin ([facility]) Sleep apnea no device (unable to tolerate BIPAP) Type 1 diabetes mellitus + insulin pump Exercise / Class Metabolic Activity III < 4 Walking/Shop/Light housework Past Surgical History Surgical History Difficult airway for intubation I&D lumbar spine with stimulator beads: 03/25/18: Glidescope #3, ETT 7.0 at [facility] History of back surgery X 2-LUMBAR, POST OP SURGICAL INFECTION X2 History of carpal tunnel release LEFT History of cataract surgery R/L History of section X 3 History of colonoscopy History of lumbar fusion 02/2018 History of tonsillectomy History of total knee replacement LEFT Past Anesthesia History Difficult Airway (I&D lumbar spine with stimulator beads: 03/25/18: Glidescope #3, ETT 7.0 at [facility]) and No Family Hx of Anesthesia Complications History of PONV No Hx of PONV and No Hx of Motion Sickness Social History Smoking Status: Never smoker Do You Dip or Chew Tobacco: No Hx Alcohol Use: Yes Alcohol type: wine alcohol intake frequency: holidays/special occasions only Hx Substance Use: No substance use type: does not use Review of Systems Patient denies chest pain, shortness of breath, fever, chills, cough, wheezing, palpitations. Physical Exam Vital Signs VITALS BP 147/78 P 67 TEMP 98.2 SP02 97%RA RESP 18 PHYSICAL Full neck and c-spine range of motion. Full TMJ range of motion. TMD 3.5 finger breaths Mallampati Score 2 Dentition: intact, + implant/crowns (molars) Lungs: clear throughout to auscultation Cardiac: regular rate and rhythm, no murmurs noted Spine: normal Carotid arteries: negative bruit Extremities: no edema Testing Laboratory Results 06/01/20 12:30 06/01/20 12:26 PT 10.9 Seconds (9.0-12.0) 06/01/20 12:30 INR 1.0 (0.9-1.1) 06/01/20 12:30 APTT 25.1 Seconds (21.0-31.0) 06/01/20 12:30 Hemoglobin A1c 8.9 % (4.5-5.6) H 06/01/20 12:30 Blood Type A Positive 06/01/20 12:30 Antibody Screen NEGATIVE 06/01/20 12:30 Surgeon's office made aware of elevated hgba1c* Electrocardiogram Date: 06/01/20 NSR at 67bpm. unconfirmed report* Chest X-Ray Date: 06/01/20 FINDINGS: The cardiac and mediastinal contours are normal. There is no evidence of focal pulmonary consolidation. There is no evidence of failure. No pleural effusions are visualized. IMPRESSION: No active disease in the chest. Echocardiogram Date: 03/16/18 EF: 65-70% LV Function: normal RWMA: + none Other Findings: no LVH and no diastolic dysfunction Valvular Disease: + no significant valvular disease Calcified, trileaflet aortic valve with calcification of the RCC and NCC. Stress Test Date: 01/09/18 Type: DSE Baseline echo negative for infarct. Stress echo negative for ischemia. 85% MPHR. Cervical Spine Date: 06/01/20 FINDINGS: There is stringy of the normal cervical lordosis. Narrowing at the C1- C2 articulation is noted. There is no evidence for cervical spine instability during flexion or extension. No fracture is noted. No osseous lesion is noted. IMPRESSION: No evidence for cervical spine instability during flexion or extension.
[2020-06-01 12:53] LABS: Basophils # (auto) 0.04 K/uL (0-0.2); Basophils % (auto) 0.7 %; Eosinophils # (auto) 0.12 K/uL (0-0.5); Hematocrit (blood only) 34.5 % (37-47); Hemoglobin 11.3 g/dL (12.0-16.0); Immature Granulocytes # (auto) 0.01 K/uL (0.00-0.02); Immature Granulocytes % (auto) 0.2 %; Lymphocytes # (auto) 2.46 K/uL (1.2-3.4); Lymphocytes % (auto) 40.1 %; Mean Corpuscular Hemoglobin 28.5 pg (25-34); Mean Corpuscular Hgb Conc 32.8 g/dL (32-36); Mean Corpuscular Volume 87.1 fL (80-100); Mean Platelet Volume 9.4 fL (7.4-10.4); Monocytes # (auto) 0.45 K/uL (0.11-0.59); Monocytes % (auto) 7.3 %; Neutrophils # (auto) 3.06 K/uL (1.4-6.5); Neutrophils % (auto) 49.7 %; Platelet Count 239 K/uL (130-400); RDW Coefficient of Variation 12.9 % (11.5-14.5); RDW Standard Deviation 42.1 fL (36.4-46.3); Red Blood Count 3.96 M/uL (4.2-5.4); White Blood Count 6.14 K/uL (4.8-10.8)
--- NOTE | 2020-06-01 12:54 | XRay Report ---
XR chest Pre-admission PA/Lat CLINICAL HISTORY: Preoperative chest COMPARISON STUDY: 03/03/2018 FINDINGS: The cardiac and mediastinal contours are normal. There is no evidence of focal pulmonary co nsolidation. There is no evidence of failure. No pleural effusions are visualized.[ IMPRESSION: No active disease in the chest. ACT 112: Negative or not required by law. Electronically signed by: Rylan Theodore M.D. 06/01/2020 12:52 PM
--- NOTE | 2020-06-01 13:05 | XRay Report ---
CERVICAL SPINE RADIOGRAPHS WITH FLEXION AND EXTENSION CLINICAL HISTORY: RHEUMATOID ARTHRITIS COMPARISON STUDY: No previous studies for comparison. FINDINGS: There is stringy of the normal cervical lordosis. Narrowing at the C1-C2 articulation is no carly. There is no evidence for cervical spine instability during flexion or extension. No fracture is noted. No osseous lesion is noted. IMPRESSION: No evidence for cervical spine instability during flexion or extension. ACT 112: Negative or not required by law. Electronically signed by: Diogenes Gunter M.D. 06/01/2020 1:03 PM
[2020-06-01 13:06] LABS: Estimated Average Glucose 209 mg/dl; Hemoglobin A1C 8.9 % (4.5-5.6)
[2020-06-01 13:10] LABS: Partial Thromboplastin Ratio 0.9; Partial Thromboplastin Time 25.1 Seconds (21.0-31.0); Prothrombin Time 10.9 Seconds (9.0-12.0)
[2020-06-01 14:19] LABS: BUN Creatinine Ratio 20.5 (10-20); Calcium 9.3 mg/dl (8.5-10.1); Creatinine Clr Calc Pharmacy 50.9 ml/min; Est GFR (African American) 53.2; Est GFR (Non-African American) 45.9; Potassium 4.7 mmol/L (3.5-5.1)
--- NOTE | 2020-06-03 12:11 | Electrocardiogram Report ---
Test Reason : Blood Pressure : / mmHG Vent. Rate : 067 BPM Atrial Rate : 067 BPM P-R Int : 198 ms QRS Dur : 080 ms QT Int : 414 ms P-R-T Axes : 070 064 061 degrees QTc Int : 437 ms Normal sinus rhythm Normal ECG When compared with ECG of 14-MAR-2018 06:55, No significant change was found Confirmed by Harley Everett ([id number]) on 06/03/2020 12:10:44 PM Referred By: Brian Hansen Confirmed By:Harley Everett
--- NOTE | 2020-06-08 20:34 | History & Physical Report ---
Date of Service June 08, 2020 Assessment & Plan (1) Osteoarthritis of right knee: We will proceed with a right total knee arthroplasty. Postoperatively she will be placed on aspirin and kept overnight in the hospital for postoperative medical management. She plans to talk to case management to help set up therapy or rehab postoperatively. Present on Admission?: Yes History of Present Illness Chief Complaint: Primary osteoarthritis of the right knee Primary Care Provider: Ifrah Moreno is a pleasant 65-year-old female who is been dealing with chronic increasing right knee pain. X-rays and clinical examination have been diagnostic for advanced osteoarthritis of the right knee. After failing conservative treatment, she has elected to proceed with a right total knee arthroplasty. She had a left knee replacement done by Dr. Chandler in 2009. Allergies Allergy/AdvReac Type Severity Reaction Status Date / Time adhesive Allergy Intermediate Rash with Verified 06/01/20 12:05 tape cefaclor Allergy Intermediate Hives Verified 06/01/20 12:05 Penicillins Allergy Intermediate Hives Verified 06/01/20 12:05 Home Medications Home Medications Medication Instructions Recorded Confirmed Type aspirin [Aspir-81] 81 mg PO QPM 10/09/18 05/20/20 History atorvastatin 40 mg PO HS 10/09/18 05/20/20 History bisoprolol fumarate 5 mg PO PM 10/09/18 05/20/20 History cholecalciferol (vitamin D3) 2,000 unit PO QAM 10/09/18 05/20/20 History [Vitamin D3] chromium picolinate 1,000 mcg PO QAM 10/09/18 05/20/20 History coQ10 (ubiquinol) 100 mg PO QPM 10/09/18 05/20/20 History docusate sodium 100 mg PO QAM PRN 10/09/18 05/20/20 History duloxetine 60 mg PO QAM 10/09/18 05/20/20 History ezetimibe [Zetia] 10 mg PO QPM 10/09/18 05/20/20 History ferrous sulfate 325 mg PO BID 10/09/18 05/20/20 History hydrochlorothiazide 25 mg PO BID PRN 10/09/18 05/20/20 History hydroxyzine pamoate [Vistaril] 25 mg PO HS PRN 10/09/18 05/20/20 History insulin aspart U-100 [Novolog 10 - 20 unit SUBCUT TIDM 10/09/18 05/20/20 History U-100 Insulin aspart] magnesium oxide 400 mg PO Q OTHER DAY 10/09/18 05/20/20 History multivitamin 1 tab PO PM 10/09/18 05/20/20 History omega-3 acid ethyl esters [Lovaza] 1 cap PO BID 10/09/18 05/20/20 History polyethylene glycol 3350 [Miralax] 17 g PO DAILY PRN 10/09/18 05/20/20 History tramadol 50 - 100 mg PO Q6H PRN 10/09/18 05/20/20 History verapamil 120 mg PO QAM 10/09/18 05/20/20 History biotin-calcium carbonate 1 tab PO PM 05/20/20 05/20/20 History levomefolate calcium [Elfolate] 15 mg PO QAM 05/20/20 05/20/20 History tizanidine [Zanaflex] 4 mg PO HS 05/20/20 05/20/20 History tofacitinib [Xeljanz XR] 11 mg PO PM 05/20/20 05/20/20 History doxycycline hyclate 100 mg tablet 100 mg PO BID #10 tab 06/01/20 06/01/20 Rx Past Med/Surg History Medical History Anemia chronic Anxiety Chronic kidney disease stage II (follows with Dr. Arceo/[facility] [place]) History of blood transfusion post-op back surgery Hyperlipidemia Hypertension Obesity PMR (polymyalgia rheumatica) [facility] Restless leg syndrome Rheumatoid [facility] Sleep apnea no device (unable to tolerate BIPAP) Type 1 diabetes mellitus + insulin pump Surgical History Difficult airway for intubation I&D lumbar spine with stimulator beads: 03/25/: Glidescope #3, ETT 7.0 at [facility] History of back surgery X 2-LUMBAR, POST OP SURGICAL INFECTION X2 History of carpal tunnel release LEFT History of cataract surgery R/L History of section X 3 History of colonoscopy History of lumbar fusion 02/2018 History of tonsillectomy History of total knee replacement LEFT Social History Smoking Status: Never smoker Second Hand Exposure: No; Hx Alcohol Use: Yes Alcohol type: wine Hx Substance Use: No Preferred Language: Kazakh Communication Ability: Effective Library Associate Required: No Beliefs That Will Affect Care: None Current Living Situation: Spouse Feels Safe at Home: Yes Assistive Devices: Cane and Glasses Review of Systems Review of Systems: All systems reviewed & are unremarkable except as noted in HPI & below Physical Exam Constitutional: WD/WN, vitals as above Eyes: PERRL, conjunctivae normal, anicteric sclerae ENMT: external ear and nose normal, oropharynx normal Neck: trachea midline, no thyromegaly Respiratory: normal respiratory effort Cardiovascular: RRR, no murmur, no edema Gastrointestinal (Abdomen): normal bowel sounds, soft, nontender, no hepatosplenomegaly Musculoskeletal: On physical examination of the right knee there is a trace effusion. There is near full range of motion and no evidence of instability. There is significant tenderness palpation along the medial and lateral joint lines and over the distal femoral condyles. Psychiatric: A+Ox3, euthymic affect Results & Data Results & Data ([facility]) Diagnostic Findings Radiographs of the right knee demonstrate advanced osteoarthritis with joint space narrowing osteophyte formation and [id number] articulation. PG Care Time/CCT Total # of Minutes Spent Total Time Spent with Patient: Total time spent is greater than 50% in coordination of care (as documented) at patient's floor/unit and/or counseling patient: Coding Level of Care Code None Diagnoses Osteoarthritis of right knee M17.11
[2020-06-13] MEDS ORDERED: dexAMETHasone 4 MG TAB PO SCH (06:00)
[2020-06-13] MEDS ORDERED: TRANEXAMIC ACID 1,000 MG **IV Pre-op IV SCH (06:00)
[2020-06-13] MEDS ORDERED: ACETAMINOPHEN 500 MG TAB PO SCH (06:00)
[2020-06-13] MEDS ORDERED: TRANEXAMIC ACID 1,000 MG **IV Intra-op IV SCH (06:00)
[2020-06-13] MEDS ORDERED: LR 500ML BOLUS, THEN 15ML/HR IV SCH (06:00)
[2020-06-13] MEDS ORDERED: ROPIVACAINE 0.5% HCL/PF 150 MG, BUPIVACAINE 0.5% MPF 30 ML, EPINEPHrine 30MG/30ML (OR U... INSTIL SCH (06:00)
[2020-06-13] MEDS ORDERED: ceFAZolin 2000MG 2,000 MG/15 ML SYR IV SCH (06:00)
[2020-06-13] MEDS ORDERED: LR 60ML/HR IV SCH (06:00)
[2020-06-13] MEDS ORDERED: FAMOTIDINE 20 MG TAB PO SCH (06:00)
[2020-06-13] MEDS ORDERED: GABAPENTIN 600 MG DOSE PO SCH (06:00)
[2020-06-13] MEDS ORDERED: BUPIVACAINE 0.5 % 5 MG/1 ML PF 10ML VIAL ONE (06:24)
[2020-06-13] MEDS ORDERED: PROPOFOL IV EMULSION 10 MG/ML 20 ML VIAL IV ONE (06:28)
[2020-06-13] MEDS ORDERED: DEXAMETHASONE SOD INJ 4 MG/ML VIAL ONE (06:28)
[2020-06-13] MEDS ORDERED: ONDANSETRON INJ 2 MG/ML 2 ML VIAL ONE (06:28)
[2020-06-13] MEDS ORDERED: LIDOCAINE HCL 2% 2 ML VIAL/AMP(20MG/ML) INFIL ONE (06:28)
[2020-06-13] MEDS ORDERED: MIDAZOLAM HCL 1 MG/ML 2ML VIAL ONE (06:28)
[2020-06-13] MEDS ORDERED: GLYCOPYRROLATE 0.2 MG/ML VIAL ONE (06:28)
[2020-06-13] MEDS ORDERED: ceFAZolin 2,000 MG/15 ML IV PUSH IV ONE (06:30)
[2020-06-13] MEDS ORDERED: fentaNYL citrate 100 MCG/2 ML VIAL ONE (06:41)
--- NOTE | 2020-06-13 06:42 | History & Physical Bridge Note ---
Date of Service June 13, 2020 History & Physical Bridge Note I have examined the patient, reviewed the History & Physical and in the interval since the performance of the History & Physical I have noted the following changes of clinical significance: no changes noted
[2020-06-13] MEDS ORDERED: ORTHO JOINT ANESTHETIC ONE (07:02)
[2020-06-13] MEDS ORDERED: ePHEDrine sulfate 50 MG/ML SYR ONE (07:28)
[2020-06-13] MEDS ORDERED: fentaNYL citrate 100 MCG/2 ML VIAL IV PRN (07:29)
[2020-06-13] MEDS ORDERED: ONDANSETRON INJ 2 MG/ML 2 ML VIAL IV PRN ×2 (07:29→11:17)
[2020-06-13] MEDS ORDERED: ePHEDrine sulfate 50 MG/ML AMP IV PRN (07:29)
[2020-06-13] MEDS ORDERED: ATROPINE SULFATE 0.1 MG/ML 10ML SYR IV PRN (07:29)
--- NOTE | 2020-06-13 08:53 | Operative Report ---
PG Post Operative Report Pre & Post Diagnosis Operation Date: 06/13/20 07:15 Pre-Op Diagnosis: Degenerative Joint Disease Right Knee Post-Op Diagnosis: Degenerative Joint Disease Right Knee I identified the patient and participated in the time-out.: Yes Procedure Operation Date: 06/13/20 07:15 Actual Procedures p Right Total Knee Arthroplasty, Cemented(Right) - Brian Hansen DO Surgeon Brian Hansen DO Lehr Attendant Brian Alaniz PAC Estimated Blood Loss 200 Findings Consistent with Post-Op Diagnosis Specimens Right femoral and tibial bone Complications none Disposition Disposition: Recovery Room Indications Tiffanie is a pleasant 65-year-old female who presented my office with chronic increasing right knee pain. X-rays and clinical examination were diagnostic for advanced osteoarthritis of the right knee. After failing conservative treatment , she elected to proceed with a right total knee arthroplasty. Description of Procedure Implants used: I used a [employer] total knee arthroplasty system with a size 9 standard CPS femur, E tibia, 29 patella, and a size 12 CPS polyethylene bearing. All components were cemented in place with Palacos G cement. Tiffanie arrived [facility] for the above procedure. She was seen in the preoperative holding area and the operative extremity was identified and signed. She was given a preoperative antibiotic, TXA, a spinal anesthetic and an adductor nerve block. She was taken back to the operating room and laid on the table in supine position. She was given basic sedation. The operative knee was then prepped and draped in sterile fashion. A timeout was done, and the patient and the operative extremity was properly identified. A midline incision was made directly over the patella. Dissection was taken down to the extensor mechanism. A subvastus arthrotomy was used. The medial retinaculum was released and the fat pad was mostly excised. The knee was flexed and the ACL, PCL, and meniscus were removed. A drill was sent down the center of the femoral canal followed by an intramedullary gurvinder. Off that gurvinder a distal femoral cutting block was placed. 9 mm was resected off the distal femur at 5 of valgus. A posterior referencing AP sizing guide was then placed on the distal femur. The femur measured to be a size 9 standard. 2 drill holes were placed in 3 of external rotation. A 4-in-1 cutting block was then impacted into place. Anterior, posterior, and chamfer cuts were then made. The proximal tibia was then exposed. An external tibial alignment guide was placed. A tibial cut guide was then anchored in place and the proximal tibia was then resected. The posterior aspect of the knee was then opened up and any additional meniscus fragments and osteophytes were removed. The tibia measured to be a size E. The tibial plate was then placed in the appropriate rotation and the tibia was drilled and punched. Trial components were then placed. I used a size 12 CPS polyethylene insert. The knee was brought through a full range of motion and felt to be stable. The peg holes for the femoral component were then drilled. The patella was then everted and 9 mm was resected off the posterior aspect of the patella. The patella measured to be a size 29. 3 peg holes were then drilled. A trial patella was placed. The knee was once again brought through a full range of motion and felt to be stable. Trial components were then removed. The surrounding soft tissues were injected with 100 cc of an orthopedic pain control cocktail. All components were then cemented into place with Palacos G cement. The final polyethylene insert was then snapped into place. Once cement was dry the tourniquet was deflated. Hemostasis was obtained. A dilute betadyne lavage was then done for 3 minutes. The joint was then irrigated with normal saline solution. The subvastus arthrotomy was then closed with #1 Vicryl suture. The skin was closed with 2-0 Vicryl, 3-0V lock suture, and derrick. A Silverlon and a soft compressive dressing were placed. She was then transferred to a hospital bed and taken to the postanesthesia care unit in stable condition. She tolerated the procedure well. Brian Alaniz PA-C, was present for the entire procedure. He was critical for patient positioning, prepping, draping, retraction exposure, wound closure and application of sterile dressing. I attest to the content of the Intraoperative Record and any orders documented therein. Any exceptions are noted below.
[2020-06-13] MEDS ORDERED: INSULIN ASPART PER UNIT SC STA (09:17)
[2020-06-13] MEDS ORDERED: INSULIN ASPART PER UNIT ONE (09:19)
[2020-06-13] MEDS ORDERED: NovoLIN-R INSULIN PER UNIT CHARGE ONE (09:50)
[2020-06-13] MEDS ORDERED: INSULIN HUMAN REGULAR PER UNIT 10 UNITS in SYRINGE 0 ML IV STA (09:55)
--- NOTE | 2020-06-13 09:57 | XRay Report ---
XR knee RT 1 or 2V routine CLINICAL HISTORY: Postoperative evaluation. COMPARISON: Knee radiographs April 12, 2020 FINDINGS: Alignment of the total right knee arthroplasty is anatomic. There is no periprosthetic fra cture or unexpected radiopaque foreign body. IMPRESSION: Expected findings following total right knee arthroplasty. ACT 112: Negative or not required by law. Electronically signed by: Diogenes Gunter M.D. 06/13/2020 9:56 AM
[2020-06-13] MEDS ORDERED: INSULIN HUMAN REGULAR PER UNIT 15 UNITS in SYRINGE 0 ML IV STA (10:22)
[2020-06-13] MEDS ORDERED: MAGNESIUM HYDROXIDE SUSP 30 ML UDC PO PRN (11:17)
[2020-06-13] MEDS ORDERED: hydroCHLOROthiazide 25 MG TAB PO PRN (11:17)
[2020-06-13] MEDS ORDERED: bisacodyL 10 MG SUPP PR PRN (11:17)
[2020-06-13] MEDS ORDERED: oxyCODONE HCL IR 5 MG TAB (IMMEDIATE RELEASE) PO PRN (11:17)
[2020-06-13] MEDS ORDERED: hydrOXYzine HCl 25 MG TAB PO PRN (11:17)
[2020-06-13] MEDS ORDERED: NALOXONE HCL 0.4 MG/1 ML VIAL/CARP IV PRN (11:17)
[2020-06-13] MEDS ORDERED: HYDROmorphone INJ 0.5 MG/0.5 ML SYR IV PRN (11:17)
[2020-06-13] MEDS ORDERED: METOCLOPRAMIDE HCL INJ 5 MG/ML 2 ML VIAL IV PRN (11:17)
[2020-06-13] MEDS ORDERED: PHARMACY GLYCEMIC MGMT CONSULT PRN (11:40)
[2020-06-13] MEDS ORDERED: INSULIN ASPART 100 UNITS/ML VIAL SC PRN (11:45)
--- NOTE | 2020-06-13 11:54 | Anesthesiology Progress Note ---
Date of Service June 13, 2020 Anesthesia Post Procedure Vital Signs Vital Signs: Temp Pulse Pulse Resp BP BP Pulse Ox 06/13/20 11:40 61 16 120/65 95 06/13/20 11:05 97.7 F 66 16 121/64 94 06/13/20 10:45 98.2 F 66 15 118/61 95 06/13/20 10:35 66 15 110/53 L 95 06/13/20 10:25 67 15 111/64 95 06/13/20 10:15 67 14 118/54 L 94 06/13/20 10:05 97.9 F 67 14 125/56 L 93 06/13/20 09:55 65 16 138/60 97 06/13/20 09:45 98.2 F 64 16 137/81 97 06/13/20 09:35 66 16 122/91 93 06/13/20 09:25 66 16 139/65 97 06/13/20 09:15 72 16 152/66 H 100 06/13/20 09:07 98.6 F 76 16 143/66 H 100 06/13/20 05:56 98.1 F 65 18 162/73 H 99 Transfer of Care Handoff Completed per policy Notes Mental Status: alert / awake / arousable and participated in evaluation Patient Amnestic to Procedure: Yes Nausea / Vomiting: adequately controlled Pain: adequately controlled Airway Patency, RR, SpO2: stable & adequate BP & HR: stable & adequate Hydration State: stable & adequate Neuraxial Anesthesia: was administered and sensory block is resolving Anesthetic Complications: no major complications apparent and Pt Satisfied with anesthetic care
[2020-06-13] MEDS ORDERED: NovoLOG INSULIN PUMP SCH (12:00)
[2020-06-13] MEDS ORDERED: GLUCOSE 10 TABS/TUBE PO PRN (12:00)
[2020-06-13] MEDS ORDERED: DEXTROSE 50% 50 ML SYRINGE IV PRN (12:00)
[2020-06-13] MEDS ORDERED: CARBOHYDRATES FOR HYPOGLYCEMIA PO PRN (12:00)
[2020-06-13] MEDS ORDERED: GLUCOSE 40% GEL 15 GM TUBE PO PRN (12:00)
[2020-06-13] MEDS ORDERED: GLUCAGON FOR INJ 1 MG VIAL IM PRN (12:00)
[2020-06-13] MEDS: SODIUM CHLORIDE 0.9% 1000ML 1,000 ML IV SCH ×2 (12:20→22:15)
[2020-06-13] MEDS: KETOROLAC 30 MG/ML VIAL IV SCH ×2 (12:23→17:24)
[2020-06-13] MEDS: ACETAMINOPHEN 500 MG TAB PO SCH ×2 (15:06→20:06)
--- NOTE | 2020-06-13 15:20 | Pharmacy Report ---
Pharmacy Glycemic Short Note 2 - Date of Service June 13, 2020 - Glycemic Short BSG Results (Last 24 hours): 06/13/20 06/13/20 06/13/20 05:30 09:11 09:32 POC Glucose 266 H 370 H* 383 H* 06/13/20 06/13/20 06/13/20 09:47 10:19 10:45 POC Glucose 394 H* 418 H* 373 H* 06/13/20 12:03 POC Glucose 273 H OUTPATIENT ANTIDIABETIC REGIMEN: * Novolog pump ASSESSMENT: * Patient s/p knee arthroplasty managed on Novolog pump at home. BSGs high after procedure, however disconnected at 5 am this morning. Talked with patient about converting to SQ basal/bolus, however patient would prefer to restart pump. Talked about how she did receive steroids therefore BSGs are going to be elevated. Patient states she has gotten steroids in the pump and feels comfortable with adjusting her settings. Refused wanting to transition to basal/bolus. * BSGs trending down since pump attached, talked to patient about us following BSGs in the background. Told her to let us know if she has questions. Issue per RN with patient bolusing at lunch. Patient stating pump had setting on it to not allow her to bolus until after ~3:30. Nurse to call pharmacy with blood sugar during that time and we can reevaluate if using pump appropriate. PLAN FOR INPATIENT GLYCEMIC CONTROL: * Hold outpatient oral diabetes medications * Continue insulin pump for now
[2020-06-13] MEDS ORDERED: INSULIN GLARGINE SOLOSTAR 100 UNITS/ML 3 ML PEN SC ONE ×2 (16:00→21:00)
[2020-06-13] MEDS: ceFAZolin 2000MG 2,000 MG/15 ML SYR IV SCH (16:11)
[2020-06-13] MEDS: INSULIN ASPART 100 UNITS/ML 3 ML PEN SC SCH ×2 (17:25→20:32)
[2020-06-13] MEDS: FERROUS SULFATE 325 MG TAB PO SCH (17:25)
[2020-06-13] MEDS ORDERED: INSULIN HUMAN REGULAR PER UNIT 10 UNITS in SYRINGE 9.9 ML IV ONE (19:15)
[2020-06-13] MEDS: ASPIRIN 81 MG ECTAB PO SCH (20:04)
[2020-06-13] MEDS: DOCUSATE SODIUM 100 MG CAP PO SCH (20:05)
[2020-06-13] MEDS ORDERED: NON-FORMULARY MEDICATION (Doxycycline Hyclate 100 MG) PO SCH (21:00)
[2020-06-13] MEDS ORDERED: BISOPROLOL FUMARATE 5 MG TAB PO SCH (21:00)
[2020-06-13] MEDS ORDERED: SENNA 8.6 MG TAB PO SCH (21:00)
[2020-06-13] MEDS ORDERED: EZETIMIBE 10 MG TABLET PO SCH (21:00)
[2020-06-13] MEDS ORDERED: ATORVASTATIN 40 MG TAB PO SCH (21:00)
[2020-06-13] MEDS ORDERED: tiZANidine HCL 4 MG TABLET PO SCH (21:00)
[2020-06-14] MEDS: KETOROLAC 30 MG/ML VIAL IV SCH ×3 (00:04→12:57)
[2020-06-14] MEDS: ceFAZolin 2000MG 2,000 MG/15 ML SYR IV SCH (00:05)
[2020-06-14] MEDS: INSULIN ASPART 100 UNITS/ML 3 ML PEN SC SCH ×4 (00:05→12:56)
[2020-06-14] MEDS: ACETAMINOPHEN 500 MG TAB PO SCH ×2 (05:23→13:42)
[2020-06-14 06:15] LABS: Hematocrit (blood only) 25.9 % (37-47); Hemoglobin 8.6 g/dL (12.0-16.0); Mean Corpuscular Hemoglobin 28.4 pg (25-34); Mean Corpuscular Hgb Conc 33.2 g/dL (32-36); Mean Corpuscular Volume 85.5 fL (80-100); Mean Platelet Volume 9.3 fL (7.4-10.4); Platelet Count 196 K/uL (130-400); RDW Coefficient of Variation 12.7 % (11.5-14.5); RDW Standard Deviation 40.1 fL (36.4-46.3); Red Blood Count 3.03 M/uL (4.2-5.4); White Blood Count 10.48 K/uL (4.8-10.8)
[2020-06-14 06:45] LABS: BUN Creatinine Ratio 25.1 (10-20); Calcium 8.4 mg/dl (8.5-10.1); Creatinine Clr Calc Pharmacy 51.2 ml/min; Est GFR (African American) 52.6; Est GFR (Non-African American) 45.4; Potassium 4.8 mmol/L (3.5-5.1)
--- NOTE | 2020-06-14 07:12 | Orthopedic Progress Note ---
Date of Service June 14, 2020 Assessment & Plan (1) Status post right knee replacement: Overall she is doing well. She has been up and ambulating. She has no symptoms of anemia. Her H&H shows that she is slightly anemic, however, her H&H normally runs low. We will see how she does today with physical therapy. If she does well with therapy and she is feeling good then she can be discharged home later today. However, if she starts showing some signs of anemia or she does not progress well with physical therapy then we can certainly keep her until tomorrow. Present on Admission?: No Admission and Anticipated Discharge Date Admission Date: June 13, 2020 Denia Moreno was seen and examined at bedside this morning. Overall she is doing very well. She is not having much pain in the right knee. She has been up and ambulating to the bathroom. She has no complaints. Physical Exam Musculoskeletal: Physical examination of the right knee, the dressing is clean and dry. Her knee is out in full extension. She has active dorsiflexion and p lantarflexion of her right ankle. Results & Data ([facility]) Vital Signs (Past 12 Hours) Vital Signs Temp Pulse Resp BP Pulse Ox 06/14/20 03:57 36.6 C 68 14 140/57 L 95 06/13/20 23:54 36.4 C L 68 14 126/61 92 06/13/20 19:28 36.7 C 85 16 152/74 H 99 Laboratory Results H & H 06/01/20 06/14/20 Range/Units 12:30 04:52 Hgb 11.3 L 8.6 L (12.0-16.0) g/dL Hct 34.5 L 25.9 L (37-47) % Coagulation 06/01/20 Range/Units 12:30 INR 1.0 (0.9-1.1) Diagnostic Findings Postoperative x-rays of the right knee show the prosthesis to be in anatomic alignment without any evidence of fracture, dislocation, or loosening. PG Care Time/CCT Total # of Minutes Spent Total Time Spent with Patient: Total time spent is greater than 50% in coordination of care (as documented) at patient's floor/unit and/or counseling patient: Coding Level of Care Code None Diagnoses Status post right knee replacement Z96.651
--- NOTE | 2020-06-14 07:14 | Discharge Summary ---
Date of Service June 14, 2020 Admission HPI Per Admitting Provider Tiffanie is a pleasant 65-year-old female who is been dealing with chronic increasing right knee pain. X-rays and clinical examination have been diagnostic for advanced osteoarthritis of the right knee. After failing co nservative treatment, she has elected to proceed with a right total knee arthroplasty. She had a left knee replacement done by Dr. Chandler in 2009. Principal Diagnosis Right knee replacement Discharge Data Allergies Allergy/AdvReac Type Severity Reaction Status Date / Time adhesive Allergy Intermediate Rash with Verified 06/13/20 05:38 tape cefaclor Allergy Intermediate Hives Verified 06/13/20 05:38 Penicillins Allergy Intermediate Hives Verified 06/13/20 05:38 Consultations 06/13/20 11:17 Consult Case Management - Discharge Planning Routine Procedures Performed Operation Date: 06/13/20 07:15 Actual Procedures p Right Total Knee Arthroplasty, Cemented(Right) - Brian Hansen DO Ordered Studies 06/13/20 05:00 US - OR guided needle placemen Routine Hospital Course (1) Status post right knee replacement: On June 13, 2020 Tiffanie arrived at [facility] and underwent a right knee replacement without complication. She had a spinal anesthetic. Postoperatively she was started on aspirin for DVT prophylaxis and transferred to the general orthopedic floors. Her hospital course was uneventful. On postop day #1 her H&H was a little bit low, however, she normally runs low. She was asymptomatic with anemia. She was seen by physical therapy and able to participate well doing ambulation and range of motion exercises. She was then discharged home. She will follow-up with orthopedics in 2 weeks. Total Time Total Time Spent Total Time Spent (In Minutes): 20 Discharge Plan Discharge Items Patient Disposition: Home - Home Health Services Reason For Visit: DJD Right Knee Discharge Diagnosis: Right knee replacement Activity: As commented below Non-emergency contact: Surgeon Call non-emergency contact if: your wound has increased redness and your wound has increased drainage Follow-up/Referrals: Ifrah Moore D.O. [Primary Care Provider] - Diet: Regular Addtl Attending Provider Instructions: Activity and Therapy Recommendations: * If you are using [facility] then therapy will be provided at your home until they feel you have accomplished all of your goals. * If you are using [facility] then Physical Therapy will be provided until they feel you are ready to start Outpatient Physical Therapy. * If you are not using home therapy then Outpatient Physical Therapy should start about 3-5 days from your day of surgery. Therapy will last about 6-10 weeks * It is important not to put a pillow under your knee when you are relaxing or sleeping. It is just as important to make sure you are getting your knee perfectly straight as it is to regain your knee bend. * You were shown a series of exercises in the hospital. Do these exercises three times each day including the exercises you were shown in physical therapy. * Get up and walk several times each day. For the first four weeks, try not to stand or walk for more than one hour at a time. If you do stand or walk for more than one hour, you will not hurt anything, but your leg will likely swell. * As you feel comfortable, you may change from the walker or crutches to a cane and then to independent walking. Medications: * Narcotic You will likely be sent home from the hospital with a prescription for the narcotic pain medication that worked best throughout your stay. * Aspirin Most patients will be required to take Aspirin 81mg twice a day for 6 weeks after surgery. This is obtained [id number] and a prescription is not necessary. * Other medications may be prescribed for specific circumstances. If you have any questions, please call the office at . * Resume previous home medications unless otherwise instructed TEDs/Elastic Stockings: The white elastic stockings help limit swelling and prevent blood clots from forming in your legs.~ The more you wear them, the more they work. Wear them for six weeks. Dressing Care: Leave the Silverlon dressing in place for 7 days. After 7 days you may remove the dressing. If the incision is not draining then you may leave the derrick open to air. If there is a little bit of drainage or if the derrick are getting stuck on your clothing then cover the incision with a dry dressing. The derrick will be removed at your 2 week follow-up appointment. Showering: You may shower with the Silverlon dressing in place. Do not let the shower spray hit the dressing directly. Pat the Silverlon dressing dry. If the dressing becomes wet underneath, then simply remove the dressing. Keep the incision dry until you are 7 days out from the day of surgery. After 7 days you may remove the Silverlon dressing and shower with the derrick exposed. Let soapy water run over the derrick and pat them dry. Do not scrub or soak the incision. Things To Watch For: * Drainage from the incision site that occurs more than one week after your surgery. * Increased redness at the incision site. * Fever above 102 degrees Fahrenheit. * Unusual chest pain or shortness of breath. * Call [facility] at with any of the above problems Follow-Up Visit: Follow-up with Dr. Hansen's PA (Brian Alaniz) 2-3 weeks after your day of surgery. He will remove your derrick and answer any questions. If you have any additional questions or concerns, Dr Hansen is usually in the office at the same time and will be available An appointment was probably scheduled when you signed-up for surgery in the office. If you have any questions call Office Instructions: More detailed instructions as well as Frequently Asked Questions were provided in a folder by our office when you signed-up for surgery. Please review these instructions when you get home. If you have any further questions or concerns, please feel free to call the office at [phone] Pending Studies at Discharge: No Stand-Alone Forms: My [facility] [employer], Smoking Cessation Medications and DC Order Prescriptions: New oxycodone 5 mg Tablet 5 mg PO Q4H PRN (Reason: pain) Qty: 30 RF: 0 aspirin 81 mg Tablet,Delayed Release (Dr/Ec) 81 mg PO BID 42 Days Qty: 84 RF: 0 Continued doxycycline hyclate 100 mg tablet 100 mg PO BID Qty: 10 RF: 0 atorvastatin 40 mg Tablet 40 mg PO HS RF: 0 bisoprolol fumarate 5 mg Tablet 5 mg PO PM RF: 0 ferrous sulfate 325 mg (65 mg iron) Tablet 325 mg PO BID RF: 0 docusate sodium 100 mg Capsule 100 mg PO QAM PRN (Reason: Constipation) RF: 0 hydrochlorothiazide 25 mg Tablet 25 mg PO BID PRN (Reason: Edema) RF: 0 ezetimibe [Zetia] 10 mg Tablet 10 mg PO QPM RF: 0 duloxetine 60 mg Capsule,Delayed Release(Dr/Ec) 60 mg PO QAM RF: 0 coQ10 (ubiquinol) 100 mg Capsule 100 mg PO QPM RF: 0 multivitamin Tablet 1 tab PO PM RF: 0 tramadol 50 mg Tablet 50 - 100 mg PO Q6H PRN (Reason: Pain) RF: 0 polyethylene glycol 3350 [Miralax] 17 gram/dose Powder 17 g PO DAILY PRN (Reason: Constipation) RF: 0 omega-3 acid ethyl esters [Lovaza] 1 gram Capsule 1 cap PO BID RF: 0 magnesium oxide 400 mg Capsule 400 mg PO Q OTHER DAY RF: 0 verapamil 120 mg Tablet Extended Release 120 mg PO QAM RF: 0 cholecalciferol (vitamin D3) [Vitamin D3] 2,000 unit Capsule 2,000 unit PO QAM RF: 0 chromium picolinate 1,000 mcg Tablet 1,000 mcg PO QAM RF: 0 hydroxyzine pamoate [Vistaril] 25 mg Capsule 25 mg PO HS PRN (Reason: Sleep) RF: 0 insulin aspart U-100 [Novolog U-100 Insulin aspart] 100 unit/mL Solution 10 - 20 unit SUBCUT TIDM RF: 0 tizanidine [Zanaflex] 4 mg Capsule 4 mg PO HS RF: 0 biotin-calcium carbonate 800-195 mcg-mg Tablet 1 tab PO PM RF: 0 levomefolate calcium [Elfolate] 15 mg Tablet 15 mg PO QAM RF: 0 Xeljanz XR 11 mg Tablet Extended Release 24 Hr 11 mg PO PM RF: 0 Discontinued aspirin [Aspir-81] 81 mg Tablet,Delayed Release (Dr/Ec) 81 mg PO QPM RF: 0 Discharge Orders: Discharge Order (Routine); Ordered 06/14/20 Ordered By: Brian Hansen Admission Data Admit Date/Time: 06/13/20 09:09 Attending Provider: Brian Hansen Admit Provider: Brian Hansen Primary Care Provider: Ifrah Moore Coding Level of Care Code D/C Day Management <30 mins Diagnoses Status post right knee replacement Z96.651
[2020-06-14] MEDS: ASPIRIN 81 MG ECTAB PO SCH (08:47)
[2020-06-14] MEDS: FERROUS SULFATE 325 MG TAB PO SCH (08:47)
[2020-06-14] MEDS: DOCUSATE SODIUM 100 MG CAP PO SCH (08:48)
[2020-06-14] MEDS ORDERED: VERAPAMIL HCL 120 MG TABCR PO SCH (09:00)
[2020-06-14] MEDS ORDERED: DULoxetine HCL 60 MG CAP PO SCH (09:00)
[2020-06-14] MEDS ORDERED: MULTIVITAMIN TAB PO SCH (09:00)
--- NOTE | 2020-06-14 11:23 | Pharmacy Report ---
Pharmacy Glycemic Short Note 2 - Date of Service June 14, 2020 - Glycemic Short BSG Results (Last 24 hours): 06/13/20 06/13/20 06/13/20 12:03 15:48 17:16 Glucose POC Glucose 273 H 296 H 302 H* 06/13/20 06/13/20 06/13/20 17:20 19:08 20:28 Glucose POC Glucose 290 H 286 H 287 H 06/13/20 06/14/20 06/14/20 23:58 03:55 04:52 Glucose 81 POC Glucose 154 H 96 06/14/20 08:26 Glucose POC Glucose 150 H OUTPATIENT ANTIDIABETIC REGIMEN: * Novolog pump ASSESSMENT: 06/14 * Patient received about ~129 units of insulin yesterday, of which 70 were basal insulin * Had originally started insulin pump postop, however pump malfunctioning therefore transitioned to SQ basal/bolus * Fasting BSG this AM 81 mg/dL - on recheck 151 mg/dL * Insulin pump never had been completely disconnected last evening, still on patient this AM. Nurse notified me that insulin pump was restarted by patient at ~1030 this AM and patient bolused herself. Went in to talk with patient and she states pump is working now, not sure issue before. Told her to stop insulin pump as she currently has basal insulin on board. Continuing the pump right now would likely lead to hypoglycemia. Patient demonstrated understanding and paused pump. Appears pump only running for very short period of time. * Talked to patient that it would be better to resume her insulin pump later th is afternoon closer to dinner time as it will be about 24 hrs since last basal dose. Would ensure BSGs >160 before starting insulin pump when reconnecting. PLAN FOR INPATIENT GLYCEMIC CONTROL: * Hold outpatient oral diabetes medications * Plan to likely resume insulin pump this afternoon.
[2020-06-15] MEDS ORDERED: MAGNESIUM OXIDE 400 MG TAB PO SCH (09:00)
== END 2020-06-14 15:25 | disposition home or self-care (01) | DRG 470 ==
LOC: 3E 05:07 → ASU 05:07 → INTOOBSV 09:09 → OBSVTOIN 09:09